=== PATIENT | female | born 1930 | race Caucasian/White ===

== ENCOUNTER → 2016-04-12 | Outpatient (CLI) | payer MEDICARE, OTHER ==
[2016-04-12 12:27] LABS: HEMATOCRIT 42.6 % (36.0-47.0); HEMOGLOBIN 14.2 g/dL (12.0-15.5); MEAN CORPUSCULAR HEMOGLOBIN 32.2 pg (27.0-33.4); MEAN CORPUSCULAR HGB CONC 33.2 g/dL (32.0-36.0); MEAN CORPUSCULAR VOLUME 97 fl (80-97); RED BLOOD COUNT 4.39 10^6/uL (3.72-5.28); RED CELL DISTRIBUTION WIDTH 13.8 % (11.5-14.0); WHITE BLOOD COUNT 8.5 10^3/uL (4.0-10.5)
[2016-04-12 12:52] LABS: ANION GAP 9 (5-19); BLOOD UREA NITROGEN 11 mg/dL (7-20); CALCIUM 9.5 mg/dL (8.4-10.2); CARBON DIOXIDE 32 mmol/L (22-30); CHLORIDE 103 mmol/L (98-107); CREATININE RESULT 1.09 mg/dL (0.52-1.25); GLUCOSE 82 mg/dL (75-110); POTASSIUM 4.1 mmol/L (3.6-5.0)
[2016-04-12 13:45] LABS: APPEARANCE,URINE SLIGHTLY-CLOUDY; BILIRUBIN,URINE NEGATIVE (NEGATIVE); GLUCOSE, URINE NEGATIVE (NEGATIVE); KETONES,URINE NEGATIVE (NEGATIVE); LEUKOCYTE ESTERASE,URINE SMALL (NEGATIVE); NITRITE,URINE NEGATIVE (NEGATIVE); PROTEIN,URINE NEGATIVE (NEGATIVE); URINE SPECIFIC GRAVITY 1.008; UROBILINOGEN,URINE NEGATIVE mg/dL (<2.0)
== END ==
LOC: OD 11:04
PROVIDERS: ATTEND Internal Medicine Nephrology
DX: I12.9 Hypertensive chronic kidney disease with stage 1 through stage 4 chronic kidney disease, or unspecified chronic kidney disease (principal); N18.3 Chronic kidney disease, stage 3 (moderate); E87.1 Hypo-osmolality and hyponatremia
CPT/HCPCS: 36415; 80048; 81001; 85027

== ENCOUNTER → 2016-10-22 | Outpatient (CLI) | payer MEDICARE, OTHER ==
[2016-10-22 12:02] LABS: HEMATOCRIT 43.2 % (36.0-47.0); HEMOGLOBIN 14.4 g/dL (12.0-15.5); MEAN CORPUSCULAR HEMOGLOBIN 32.7 pg (27.0-33.4); MEAN CORPUSCULAR HGB CONC 33.4 g/dL (32.0-36.0); MEAN CORPUSCULAR VOLUME 98 fl (80-97); RED BLOOD COUNT 4.42 10^6/uL (3.72-5.28); RED CELL DISTRIBUTION WIDTH 13.9 % (11.5-14.0); WHITE BLOOD COUNT 8.2 10^3/uL (4.0-10.5)
[2016-10-22 12:12] LABS: APPEARANCE,URINE CLEAR; BILIRUBIN,URINE NEGATIVE (NEGATIVE); GLUCOSE, URINE NEGATIVE (NEGATIVE); KETONES,URINE NEGATIVE (NEGATIVE); LEUKOCYTE ESTERASE,URINE TRACE (NEGATIVE); NITRITE,URINE NEGATIVE (NEGATIVE); PROTEIN,URINE NEGATIVE (NEGATIVE); URINE SPECIFIC GRAVITY 1.005; UROBILINOGEN,URINE NEGATIVE mg/dL (<2.0)
[2016-10-22 12:24] LABS: ANION GAP 10 (5-19); BLOOD UREA NITROGEN 9 mg/dL (7-20); CALCIUM 9.4 mg/dL (8.4-10.2); CARBON DIOXIDE 31 mmol/L (22-30); CHLORIDE 104 mmol/L (98-107); CREATININE RESULT 1.14 mg/dL (0.52-1.25); GLUCOSE 80 mg/dL (75-110); POTASSIUM 4.2 mmol/L (3.6-5.0)
== END ==
LOC: OD 10:34
PROVIDERS: ATTEND Internal Medicine Nephrology
DX: I12.9 Hypertensive chronic kidney disease with stage 1 through stage 4 chronic kidney disease, or unspecified chronic kidney disease (principal); N18.3 Chronic kidney disease, stage 3 (moderate)
CPT/HCPCS: 36415; 80048; 81001; 85027

== ENCOUNTER 2016-11-12 11:08 | Emergency (ER) | payer MEDICARE, OTHER ==
--- NOTE | 2016-11-12 11:29 | ER Document Report ---
ED Medical Screen (RME) - General Chief Complaint: Rib Pain Stated Complaint: SIDE PAIN Time Seen by Provider: 11/12/16 11:23 Notes: 86-year-old female patient complains of left-sided pain since Tuesday of this week. She also reports having an injection in a bursa on her right hip on Tuesday. She has noticed the tenderness in the left side just under the rib cage is now spread into the left lower quadrant of the abdomen. She has had her gallbladder removed and a total abdominal hysterectomy. She does not have a history of diverticulitis or kidney stones. I have greeted and performed a rapid initial assessment of this patient. A comprehensive ED assessment and evaluation of the patient, analysis of test results and completion of the medical decision making process will be conducted by additional ED providers. TRAVEL OUTSIDE OF THE [place] IN LAST 30 DAYS: No - Related Data Allergies/Adverse Reactions: Sulfa (Sulfonamide Antibiotics) Allergy (Mild, Verified 11/12/16 11:12) Nausea amlodipine [Amlodipine] Adverse Reaction (Mild, Verified 11/12/16 11:12) sick to stomach amoxicillin Adverse Reaction (Verified 11/12/16 11:12) Past Medical History - Social History Chew tobacco use (# tins/day): No Frequency of alcohol use: None Drug Abuse: None - Past Medical History Cardiac Medical History: Reports: Hx Heart Attack, Hx Hypercholesterolemia, Hx Hypertension Pulmonary Medical History: Reports: Hx Asthma, Hx COPD Endocrine Medical History: Reports: Hx Diabetes Mellitus Type 2 Renal/ Medical History: Denies: Hx Peritoneal Dialysis Past Surgical History: Reports: Hx Appendectomy, Hx Cholecystectomy, Hx Hysterectomy, Hx Tonsillectomy - Immunizations Hx Diphtheria, Pertussis, Tetanus Vaccination: - Unsure Physical Exam - Vital signs Vitals: Temp Pulse Resp BP Pulse Ox 98.5 F 58 L 14 190/81 H 98 11/12/16 11:10 11/12/16 11:10 11/12/16 11:10 11/12/16 11:10 11/12/16 11:10 Course - Vital Signs Vital signs: Temp Pulse Resp BP Pulse Ox 98.5 F 58 L 14 190/81 H 98 11/12/16 11:10 11/12/16 11:10 11/12/16 11:10 11/12/16 11:10 11/12/16 11:10
[2016-11-12 11:58] LABS: ABSOLUTE BASOPHILS # (AUTO) 0.1 10^3/uL (0.0-0.2); ABSOLUTE LYMPHOCYTES (AUTO) 2.8 10^3/uL (0.5-4.7); ABSOLUTE MONOCYTES (AUTO) 1.1 10^3/uL (0.1-1.4); ABSOLUTE NEUT (AUTO) 8.4 10^3/uL (1.7-8.2); EOSINOPHILS % (AUTO) 0.3 % (0-6); HEMATOCRIT 49.2 % (36.0-47.0); HEMOGLOBIN 16.6 g/dL (12.0-15.5); HGB HCT DIFFERENCE 0.6; LYMPHOCYTES % (AUTO) 22.4 % (13-45); MEAN CORPUSCULAR HEMOGLOBIN 32.7 pg (27.0-33.4); MEAN CORPUSCULAR HGB CONC 33.7 g/dL (32.0-36.0); MEAN CORPUSCULAR VOLUME 97 fl (80-97); MONOCYTES % (AUTO) 8.5 % (3-13); RED BLOOD COUNT 5.08 10^6/uL (3.72-5.28); RED CELL DISTRIBUTION WIDTH 13.7 % (11.5-14.0); SEGMENTED NEUTROPHILS % (AUTO) 67.8 % (42-78); WHITE BLOOD COUNT 12.4 10^3/uL (4.0-10.5)
[2016-11-12 12:00] LABS: APPEARANCE,URINE CLEAR; BILIRUBIN,URINE NEGATIVE (NEGATIVE); GLUCOSE, URINE NEGATIVE (NEGATIVE); KETONES,URINE NEGATIVE (NEGATIVE); LEUKOCYTE ESTERASE,URINE SMALL (NEGATIVE); NITRITE,URINE NEGATIVE (NEGATIVE); PROTEIN,URINE NEGATIVE (NEGATIVE); URINE SPECIFIC GRAVITY 1.004; UROBILINOGEN,URINE NEGATIVE mg/dL (<2.0)
[2016-11-12] MEDS ORDERED: LIDOCAINE 5% (700 MG) TRANSDERMAL ADH..PATCH TP ONE (12:01)
[2016-11-12] MEDS ORDERED: NORMAL SALINE 500 ML IV ONE (12:02)
[2016-11-12 12:30] LABS: ALANINE AMINOTRANSFERASE 72 U/L (9-52); ALBUMIN 4.7 g/dL (3.5-5.0); ALKALINE PHOSPHATASE 69 U/L (38-126); ANION GAP 14 (5-19); ASPARTATE AMINO TRANSFERASE 51 U/L (14-36); BILIRUBIN,DIRECT 0.4 mg/dL (0.0-0.4); BILIRUBIN,TOTAL 0.8 mg/dL (0.2-1.3); BLOOD UREA NITROGEN 12 mg/dL (7-20); CALCIUM 9.7 mg/dL (8.4-10.2); CARBON DIOXIDE 29 mmol/L (22-30); CHLORIDE 103 mmol/L (98-107); CREATININE RESULT 0.94 mg/dL (0.52-1.25); GLUCOSE 94 mg/dL (75-110); POTASSIUM 4.2 mmol/L (3.6-5.0); SODIUM 145.7 mmol/L (137-145); TOTAL PROTEIN 7.8 g/dL (6.3-8.2)
--- NOTE | 2016-11-12 13:36 | RADIOLOGY REPORT (SQ) ---
EXAM DESCRIPTION: CT ABD/PELVIS WITH IV ONLY COMPLETED DATE/TIME: 11/12/2016 12:53 pm REASON FOR STUDY: LUQ LLQ pain COMPARISON: CT abdomen pelvis 05/15/2012, 09/10/2015, 09/30/2015 TECHNIQUE: CT scan of the abdomen and pelvis performed using helical scanning technique with dynamic intravenous contrast injection. No oral contrast. Images reviewed with lung, soft tissue, and bone windows. Reconstructed coronal and sagittal MPR images reviewed. Delayed images for evaluation of the urinary system also acquired. All images stored on PACS. All CT scanners at this facility use dose modulation, iterative reconstruction, and/or weight based d osing when appropriate to reduce radiation dose to as low as reasonably achievable (ALARA). [facility]: Dose Right [facility]: CareDose [facility]: Dose Right [facility]: Teradose 4D [facility]: Sensitive Object CONTRAST TYPE AND DOSE: contrast/concentration: Isovue 370.00 mg/ml; Total Contrast Delivered: 54.0 ml; Total Saline Delivered: 65.1 ml RENAL FUNCTION: Creatinine 0.94 RADIATION DOSE: Up-to-date CT equipment and radiation dose reduction techniques were employed. CTDIv ol: 2.7 - 3.1 mGy. DLP: 268 mGy-cm.. LIMITATIONS: No oral contrast FINDINGS: LOWER CHEST: No significant findings. No nodules or infiltrates. LIVER: Normal size. No masses. No dilated ducts. Multiple benign hepatic cysts, unchanged compared to 2012, the largest is 2.5 cm in the left lobe liver near the falciform ligament. SPLEEN: Normal size. No focal lesions. PANCREAS: No masses. No significant calcifications. No adjacent inflammation or peripancreatic fluid collections. Pancreatic duct not dilated. GALLBLADDER: Surgically absent ADRENAL GLANDS: No significant masses or asymmetry. RIGHT KIDNEY AND URETER: No solid masses. No significant calcifications. No hydronephrosis or hyd roureter. LEFT KIDNEY AND URETER: No solid masses. No significant calcifications. No hydronephrosis or hydr oureter. AORTA AND VESSELS: No aneurysm. No dissection. Renal arteries, SMA, celiac without stenosis. RETROPERITONEUM: No retroperitoneal adenopathy, hemorrhage or masses. BOWEL AND PERITONEAL CAVITY: No masses or inflammatory changes. No free fluid or peritoneal masses. No gross bowel obstruction. No CT evidence of left colon diverticulitis. APPENDIX: Normal. PELVIS: No mass. No free fluid. Normal bladder. ABDOMINAL WALL: No masses. No hernias. BONES: No significant or acute findings. OTHER: No other significant finding. IMPRESSION: NO SIGNIFICANT OR ACUTE FINDING IN THE ABDOMEN OR PELVIS ON CT SCAN WITH IV CONTRAST. TECHNICAL DOCUMENTATION: JOB ID: [id number] Quality ID # [id number]: Final reports with documentation of one or more dose reduction techniques (e.g., Au tomated exposure control, adjustment of the mA and/or kV according to patient size, use of iterative reconstruction technique) 2010 [employer]- All Rights Reserved
--- NOTE | 2016-11-12 14:08 | ER Document Report ---
ED General - General Chief Complaint: Rib Pain Stated Complaint: SIDE PAIN Time Seen by Provider: 11/12/16 11:23 TRAVEL OUTSIDE OF THE [place] IN LAST 30 DAYS: No - HPI Patient complains to provider of: Left flank pain left rib pain Notes: Patient coming in for evaluation left flank pain left rib pain ongoing since Tuesday. Patient denies any trauma or new physical activity. Patient denies any fevers chills nausea vomiting diarrhea. Patient states chronic GI upset in the evenings with no change patient states she is tried Tylenol with no relief of her pain. Patient otherwise is resting comfortably upon my evaluation patient states able tolerate breakfast this morning. - Related Data Allergies/Adverse Reactions: Sulfa (Sulfonamide Antibiotics) Allergy (Mild, Verified 11/12/16 11:12) Nausea amlodipine [Amlodipine] Adverse Reaction (Mild, Verified 11/12/16 11:12) sick to stomach amoxicillin Adverse Reaction (Verified 11/12/16 11:12) Past Medical History - Social History Smoking Status: Never Smoker Chew tobacco use (# tins/day): No Frequency of alcohol use: None Drug Abuse: None Family History: Reviewed & Not Pertinent - Past Medical History Cardiac Medical History: Reports: Hx Heart Attack, Hx Hypercholesterolemia, Hx Hypertension Pulmonary Medical History: Reports: Hx Asthma, Hx COPD Endocrine Medical History: Reports: Hx Diabetes Mellitus Type 2 Renal/ Medical History: Denies: Hx Peritoneal Dialysis Past Surgical History: Reports: Hx Appendectomy, Hx Cholecystectomy, Hx Hysterectomy, Hx Tonsillectomy - Immunizations Hx Diphtheria, Pertussis, Tetanus Vaccination: - Unsure Hx Pneumococcal Vaccination: 02/21/14 Review of Systems - Review of Systems Constitutional: No symptoms reported EENT: No symptoms reported Cardiovascular: No symptoms reported Respiratory: No symptoms reported Gastrointestinal: No symptoms reported Genitourinary: Flank pain Female Genitourinary: No symptoms reported Musculoskeletal: No symptoms reported Skin: No symptoms reported Hematologic/Lymphatic: No symptoms reported Neurological/Psychological: No symptoms reported Physical Exam - Vital signs Vitals: Temp Pulse Resp BP Pulse Ox 98.5 F 58 L 14 190/81 H 98 11/12/16 11:10 11/12/16 11:10 11/12/16 11:10 11/12/16 11:10 11/12/16 11:10 Interpretation: Normal - General General appearance: Appears well, Alert - HEENT Head: Normocephalic, Atraumatic Eyes: Normal Pupils: PERRL - Respiratory Respiratory status: No respiratory distress Chest status: Tender - Tenderness to palpation to the lower ribs and the left flank area. Breath sounds: Normal Chest palpation: Normal - Cardiovascular Rhythm: Regular Heart sounds: Normal auscultation Murmur: No - Abdominal Inspection: Normal Distension: No distension Bowel sounds: Normal Tenderness: Nontender Organomegaly: No organomegaly - Back Back: Normal, Nontender - Extremities General upper extremity: Normal inspection, Nontender, Normal color, Normal ROM , Normal temperature General lower extremity: Normal inspection, Nontender, Normal color, Normal ROM , Normal temperature, Normal weight bearing. No: Ryan's sign - Neurological Neuro grossly intact: Yes Cognition: Normal Orientation: AAOx4 [place] Coma Scale Eye Opening: Spontaneous [place] Coma Scale Verbal: Oriented [place] Coma Scale Motor: Obeys Commands [place] Coma Scale Total: 15 Speech: Normal Motor strength normal: LUE, RUE, LLE, RLE Sensory: Normal - Psychological Associated symptoms: Normal affect, Normal mood - Skin Skin Temperature: Warm Skin Moisture: Dry Skin Color: Normal Course - Re-evaluation Re-evalutation: 11/12/16 14:57 Slight dehydration as patient is hemoconcentrated. Slight elevation in white count urinalysis was indeterminate for any signs of infection therefore did's CAT scan the patient looking for other pathology causing the patient's pain this is also negative. More likely muscle skeletal etiology. Patient was encouraged to use Tylenol and intermittent Motrin for pain patient was warned that anti-inflammatory medication can increase her risk of upset stomach GI bleed and also affect her blood pressure. Highly encouraged patient follow-up with her primary care physician in 3-5 days if pain continues. Otherwise at this time the critical etiology patient will be discharged home. The patient presents with abdominal pain without signs of peritonitis or other life- threatening or serious etiology. The patient appears stable for discharge and has been instructed to return immediately if the symptoms worsen in any way, or in 8-12hr if not improved for re-evaluation. The patient has been instructed to return if the symptoms worsen or change in any way. - Vital Signs Vital signs: Temp Pulse Resp BP Pulse Ox 97.9 F 52 L 16 194/85 H 98 11/12/16 14:25 11/12/16 14:25 11/12/16 14:25 11/12/16 14:25 11/12/16 14:25 - Laboratory Result Diagrams: 11/12/16 11:41 11/12/16 11:41 Laboratory results interpreted by me: 11/12/16 11/12/16 11/12/16 11:41 11:41 11:41 WBC 12.4 H Hgb 16.6 H Hct 49.2 H Absolute Neutrophils 8.4 H Sodium 145.7 H Est GFR (Non-Af Amer) 57 L AST 51 H ALT 72 H Ur Leukocyte Esterase SMALL H Discharge - Discharge Clinical Impression: Left flank pain Condition: Good Disposition: HOME, SELF-CARE Instructions: Anti-Inflammatory Medication ([facility]), Flank Pain ([facility]), Ice Packs ( [facility]), Warm Packs ([facility]) Additional Instructions: At this time do not see any critical pathology on her CAT scan or any lab work that was causing her pain this could be a muscle skeletal calls placing a muscle strain or a pulled muscle causing her pain. May take Tylenol for pain control also he can take anti-inflammatory medication such as Motrin however I would only take 1 dose a day at the most she may also use ice packs and warm packs to help out with the pain. Referrals: DIANNE PAEZ MD [Primary Care Provider] - Follow up in 1 week
[2016-11-12 14:34] VITALS: BP 194/85
== END 2016-11-12 14:25 | disposition home or self-care (01) ==
LOC: ER 11:08
DX: R10.9 Unspecified abdominal pain (principal); E86.0 Dehydration; R07.81 Pleurodynia; D72.829 Elevated white blood cell count, unspecified; I25.2 Old myocardial infarction; I10 Essential (primary) hypertension; J44.9 Chronic obstructive pulmonary disease, unspecified; E11.9 Type 2 diabetes mellitus without complications; Z90.49 Acquired absence of other specified parts of digestive tract; Z90.710 Acquired absence of both cervix and uterus; Z88.2 Allergy status to sulfonamides
CPT/HCPCS: 99284; 96360; 36415; 83690; 85025; 80053; 81001; 74177; J7040

== ENCOUNTER 2016-11-18 12:34 | Emergency (ER) | payer MEDICARE, OTHER ==
--- NOTE | 2016-11-18 12:57 | ER Document Report ---
ED General - General Chief Complaint: Flank Pain Stated Complaint: LEFT FLANK PAIN Time Seen by Provider: 11/18/16 12:57 Mode of Arrival: Ambulatory Information source: Patient Notes: 86 yo thin female c/o left flank pain for 2 weeks, now has painful rash this morning that her son noticed. Hx shingles as a child once. No fever. No urinary symptoms. No chest pain, sob, headache. No n/v/d. TRAVEL OUTSIDE OF THE [place] IN LAST 30 DAYS: No - Related Data Allergies/Adverse Reactions: Sulfa (Sulfonamide Antibiotics) Allergy (Mild, Verified 11/18/16 12:38) Nausea amlodipine [Amlodipine] Adverse Reaction (Mild, Verified 11/18/16 12:38) sick to stomach amoxicillin Adverse Reaction (Verified 11/18/16 12:38) Past Medical History - General Information source: Patient, Relative - son - Social History Smoking Status: Never Smoker Frequency of alcohol use: None Drug Abuse: None Lives with: Alone Family History: Reviewed & Not Pertinent - Past Medical History Cardiac Medical History: Reports: Hx Heart Attack, Hx Hypercholesterolemia, Hx Hypertension Pulmonary Medical History: Reports: Hx Asthma, Hx COPD Endocrine Medical History: Reports: Hx Diabetes Mellitus Type 2 Renal/ Medical History: Denies: Hx Peritoneal Dialysis Past Surgical History: Reports: Hx Appendectomy, Hx Cholecystectomy, Hx Hysterectomy, Hx Tonsillectomy - Immunizations Hx Diphtheria, Pertussis, Tetanus Vaccination: - Unsure Hx Pneumococcal Vaccination: 02/21/14 Review of Systems - Review of Systems Constitutional: No symptoms reported EENT: No symptoms reported Cardiovascular: No symptoms reported Respiratory: No symptoms reported Gastrointestinal: No symptoms reported Genitourinary: No symptoms reported Female Genitourinary: No symptoms reported Musculoskeletal: No symptoms reported Skin: See HPI Hematologic/Lymphatic: No symptoms reported Neurological/Psychological: No symptoms reported Physical Exam - Vital signs Vitals: Temp Pulse Resp BP Pulse Ox 98.5 F 64 16 200/94 H 97 11/18/16 12:39 11/18/16 12:39 11/18/16 12:39 11/18/16 12:39 11/18/16 12:39 Interpretation: Normal - General General appearance: Appears well, Alert - HEENT Head: Normocephalic, Atraumatic Eyes: Normal Pupils: PERRL - Respiratory Respiratory status: No respiratory distress Chest status: Nontender Breath sounds: Normal Chest palpation: Normal - Cardiovascular Rhythm: Regular Heart sounds: Normal auscultation Murmur: No - Abdominal Inspection: Normal Distension: No distension Bowel sounds: Normal Tenderness: Tender - vesicles on erythmatous bas left lower thoracic dermatone Organomegaly: No organomegaly - Back Back: Normal, Tender - similar vesicular grouped lesions same lower thoracic dermatone - Extremities General upper extremity: Normal inspection, Nontender, Normal color, Normal ROM , Normal temperature General lower extremity: Normal inspection, Nontender, Normal color, Normal ROM , Normal temperature, Normal weight bearing. No: Ryan's sign - Neurological Neuro grossly intact: Yes Cognition: Normal Orientation: AAOx4 [place] Coma Scale Eye Opening: Spontaneous [place] Coma Scale Verbal: Oriented [place] Coma Scale Motor: Obeys Commands [place] Coma Scale Total: 15 Speech: Normal Motor strength normal: LUE, RUE, LLE, RLE Sensory: Normal - Psychological Associated symptoms: Normal affect, Normal mood - Skin Skin Temperature: Warm Skin Moisture: Dry Skin Color: Normal Skin irregularity: Rash - see above Course - Re-evaluation Re-evalutation: 11/19/16 05:57 late entry: nurse was concerned about the systolic blood pressure over 200. the left was 230, right was 220 that I did. Clonidine given and the systolic went to 198. Pt had no symptoms from the BP and takes her medication regularly. - Vital Signs Vital signs: Temp Pulse Resp BP Pulse Ox 98.5 F 66 18 230/102 H 97 11/18/16 12:39 11/18/16 13:05 11/18/16 13:05 11/18/16 15:52 11/18/16 13:05 - Laboratory Result Diagrams: 11/18/16 13:35 11/18/16 13:35 Laboratory results interpreted by me: 11/18/16 11/18/16 13:35 13:35 Hgb 16.1 H Hct 47.5 H Carbon Dioxide 31 H Est GFR (Non-Af Amer) 49 L Discharge - Discharge Clinical Impression: Shingles Qualifiers: Herpes zoster complications: without complications Qualified Code(s): B02.9 - Zoster without complications Condition: Good Disposition: HOME, SELF-CARE Instructions: Oral Narcotic Medication ([facility]), Shingles ([facility]), Steroid Medication Additional Instructions: Take stool softeners so that she will not get constipated with the pain pills Lt Dianne Paez MD know that you have shingles To the emergency room any concerns Please complete the patient satisfaction survey if you get one, and return it.. If you do not receive a survey, then you can go to the [facility] website, [email or web address] and place your comments about your very good care. Thank you very much. It was a pleasure being your medical provider today. Prescriptions: Oxycodone HCl/Acetaminophen [Percocet 5-325 mg Tablet] 1 tab PO ASDIR PRN #15 tablet PRN Reason: Prednisone [Deltasone 10 mg Tablet] 10 mg PO ASDIR PRN #21 tablet PRN Reason: Valacyclovir HCl [Valtrex] 1,000 mg PO TID #21 tablet Referrals: DIANNE PAEZ MD [Primary Care Provider] - Follow up as needed
[2016-11-18 13:55] LABS: ABSOLUTE BASOPHILS # (AUTO) 0.1 10^3/uL (0.0-0.2); ABSOLUTE EOSINOPHILS # (AUTO) 0.1 10^3/uL (0.0-0.6); ABSOLUTE LYMPHOCYTES (AUTO) 2.7 10^3/uL (0.5-4.7); ABSOLUTE MONOCYTES (AUTO) 0.9 10^3/uL (0.1-1.4); ABSOLUTE NEUT (AUTO) 6.5 10^3/uL (1.7-8.2); BASOPHILS % (AUTO) 1.1 % (0-2); HEMATOCRIT 47.5 % (36.0-47.0); HEMOGLOBIN 16.1 g/dL (12.0-15.5); HGB HCT DIFFERENCE 0.8; LYMPHOCYTES % (AUTO) 26.5 % (13-45); MEAN CORPUSCULAR HEMOGLOBIN 32.8 pg (27.0-33.4); MEAN CORPUSCULAR HGB CONC 33.9 g/dL (32.0-36.0); MEAN CORPUSCULAR VOLUME 97 fl (80-97); MONOCYTES % (AUTO) 8.5 % (3-13); RED BLOOD COUNT 4.91 10^6/uL (3.72-5.28); RED CELL DISTRIBUTION WIDTH 13.7 % (11.5-14.0); SEGMENTED NEUTROPHILS % (AUTO) 62.9 % (42-78); WHITE BLOOD COUNT 10.3 10^3/uL (4.0-10.5)
[2016-11-18 13:56] LABS: APPEARANCE,URINE CLEAR; BILIRUBIN,URINE NEGATIVE (NEGATIVE); GLUCOSE, URINE NEGATIVE (NEGATIVE); KETONES,URINE NEGATIVE (NEGATIVE); LEUKOCYTE ESTERASE,URINE NEGATIVE (NEGATIVE); NITRITE,URINE NEGATIVE (NEGATIVE); PROTEIN,URINE NEGATIVE (NEGATIVE); URINE SPECIFIC GRAVITY 1.006; UROBILINOGEN,URINE NEGATIVE mg/dL (<2.0)
[2016-11-18] MEDS ORDERED: OXYCODONE-ACETAMINOPHEN 5-325 MG TABLET PO ONE ×3 (13:56→15:52)
[2016-11-18] MEDS ORDERED: DOCUSATE SODIUM 100 MG/10 ML UDC PO ONE (13:58)
[2016-11-18] MEDS ORDERED: ONDANSETRON 4 MG TAB.RAPDIS PO ONE (13:59)
[2016-11-18 14:13] LABS: ALANINE AMINOTRANSFERASE 40 U/L (9-52); ALBUMIN 4.2 g/dL (3.5-5.0); ALKALINE PHOSPHATASE 82 U/L (38-126); ANION GAP 9 (5-19); ASPARTATE AMINO TRANSFERASE 29 U/L (14-36); BILIRUBIN,DIRECT 0.4 mg/dL (0.0-0.4); BILIRUBIN,TOTAL 0.9 mg/dL (0.2-1.3); BLOOD UREA NITROGEN 14 mg/dL (7-20); CALCIUM 9.6 mg/dL (8.4-10.2); CARBON DIOXIDE 31 mmol/L (22-30); CHLORIDE 104 mmol/L (98-107); CREATININE RESULT 1.06 mg/dL (0.52-1.25); GLUCOSE 96 mg/dL (75-110); POTASSIUM 4.2 mmol/L (3.6-5.0); SODIUM 144.4 mmol/L (137-145); TOTAL PROTEIN 7.1 g/dL (6.3-8.2)
[2016-11-18] MEDS ORDERED: PREDNISONE 20 MG TABLET PO ONE (14:20)
[2016-11-18] MEDS ORDERED: DOCUSATE SODIUM 100 MG CAPSULE PO ONE (15:00)
[2016-11-18] MEDS ORDERED: CLONIDINE HCL 0.1 MG TABLET PO ONE (15:52)
[2016-11-18 15:53] VITALS: BP 230/102
== END 2016-11-18 16:48 | disposition home or self-care (01) ==
LOC: ER 12:34
DX: B02.9 Zoster without complications (principal); R10.9 Unspecified abdominal pain; E11.9 Type 2 diabetes mellitus without complications; E78.00 Pure hypercholesterolemia, unspecified; Z88.2 Allergy status to sulfonamides; Z88.0 Allergy status to penicillin; Z90.49 Acquired absence of other specified parts of digestive tract; I25.2 Old myocardial infarction; Z90.710 Acquired absence of both cervix and uterus
CPT/HCPCS: 99284; 36415; 87086; 85025; 87088; 80053; 81001; 87186; A9270 ×5; J7512; S0119

== ENCOUNTER → 2017-05-09 | Outpatient (CLI) | payer MEDICARE, OTHER ==
[2017-05-09 12:04] LABS: HEMATOCRIT 45.4 % (36.0-47.0); HEMOGLOBIN 15.3 g/dL (12.0-15.5); MEAN CORPUSCULAR HGB CONC 33.6 g/dL (32.0-36.0); MEAN CORPUSCULAR VOLUME 95 fl (80-97); PLATELET COUNT 189 10^3/uL (150-450); RED BLOOD COUNT 4.76 10^6/uL (3.72-5.28); RED CELL DISTRIBUTION WIDTH 13.9 % (11.5-14.0); WHITE BLOOD COUNT 9.9 10^3/uL (4.0-10.5)
[2017-05-09 12:35] LABS: ANION GAP 9 (5-19); BLOOD UREA NITROGEN 13 mg/dL (7-20); CALCIUM 9.7 mg/dL (8.4-10.2); CARBON DIOXIDE 30 mmol/L (22-30); CHLORIDE 106 mmol/L (98-107); GLUCOSE 86 mg/dL (75-110); POTASSIUM 4.4 mmol/L (3.6-5.0); SODIUM 144.8 mmol/L (137-145)
== END ==
LOC: OD 11:11
PROVIDERS: ATTEND Internal Medicine Nephrology
DX: I12.9 Hypertensive chronic kidney disease with stage 1 through stage 4 chronic kidney disease, or unspecified chronic kidney disease (principal); N18.3 Chronic kidney disease, stage 3 (moderate)
CPT/HCPCS: 36415; 80048; 85027

== ENCOUNTER → 2017-09-27 | Outpatient (CLI) | payer MEDICARE, OTHER ==
[2017-09-27 11:29] LABS: ABSOLUTE BASOPHILS # (AUTO) 0.1 10^3/uL (0.0-0.2); ABSOLUTE EOSINOPHILS # (AUTO) 0.1 10^3/uL (0.0-0.6); ABSOLUTE LYMPHOCYTES (AUTO) 2.6 10^3/uL (0.5-4.7); ABSOLUTE MONOCYTES (AUTO) 0.8 10^3/uL (0.1-1.4); ABSOLUTE NEUT (AUTO) 5.4 10^3/uL (1.7-8.2); BASOPHILS % (AUTO) 1.1 % (0-2); EOSINOPHILS % (AUTO) 1.6 % (0-6); HEMATOCRIT 45.2 % (36.0-47.0); HEMOGLOBIN 15.1 g/dL (12.0-15.5); LYMPHOCYTES % (AUTO) 28.8 % (13-45); MEAN CORPUSCULAR HEMOGLOBIN 32.2 pg (27.0-33.4); MEAN CORPUSCULAR HGB CONC 33.3 g/dL (32.0-36.0); MEAN CORPUSCULAR VOLUME 97 fl (80-97); MONOCYTES % (AUTO) 8.9 % (3-13); PLATELET COUNT 186 10^3/uL (150-450); RED BLOOD COUNT 4.68 10^6/uL (3.72-5.28); RED CELL DISTRIBUTION WIDTH 13.9 % (11.5-14.0); SEGMENTED NEUTROPHILS % (AUTO) 59.6 % (42-78); TOTAL CELLS COUNTED % (AUTO) 100 %; WHITE BLOOD COUNT 9.1 10^3/uL (4.0-10.5)
[2017-09-27 11:45] LABS: ALANINE AMINOTRANSFERASE 33 U/L (9-52); ALBUMIN 4.2 g/dL (3.5-5.0); ALKALINE PHOSPHATASE 57 U/L (38-126); ANION GAP 11 (5-19); ASPARTATE AMINO TRANSFERASE 34 U/L (14-36); BILIRUBIN,DIRECT 0.3 mg/dL (0.0-0.4); BLOOD UREA NITROGEN 14 mg/dL (7-20); CALCIUM 9.5 mg/dL (8.4-10.2); CARBON DIOXIDE 29 mmol/L (22-30); CHLORIDE 106 mmol/L (98-107); GLUCOSE 87 mg/dL (75-110); SODIUM 146.3 mmol/L (137-145); TRIGLYCERIDES 159 mg/dL (<150)
[2017-09-27 11:55] LABS: DIRECT LDL 72 mg/dL (<100)
[2017-09-27 11:57] LABS: VLDL CHOLESTEROL 31.8 mg/dL (10-31)
== END ==
LOC: OD 10:40
PROVIDERS: ATTEND Internal Medicine
DX: I10 Essential (primary) hypertension (principal); E78.5 Hyperlipidemia, unspecified; R53.83 Other fatigue; I47.1 Supraventricular tachycardia
CPT/HCPCS: 36415; 80053; 80061; 83735; 84443; 85025

== ENCOUNTER → 2017-10-21 | Outpatient (CLI) | payer MEDICARE, OTHER ==
[2017-10-21 11:33] LABS: HEMATOCRIT 44.8 % (36.0-47.0); MEAN CORPUSCULAR HEMOGLOBIN 32.3 pg (27.0-33.4); MEAN CORPUSCULAR HGB CONC 33.4 g/dL (32.0-36.0); MEAN CORPUSCULAR VOLUME 97 fl (80-97); PLATELET COUNT 188 10^3/uL (150-450); RED BLOOD COUNT 4.64 10^6/uL (3.72-5.28); RED CELL DISTRIBUTION WIDTH 13.9 % (11.5-14.0); WHITE BLOOD COUNT 9.5 10^3/uL (4.0-10.5)
[2017-10-21 11:55] LABS: ANION GAP 10 (5-19); BLOOD UREA NITROGEN 13 mg/dL (7-20); CALCIUM 9.2 mg/dL (8.4-10.2); CARBON DIOXIDE 31 mmol/L (22-30); CHLORIDE 104 mmol/L (98-107); GLUCOSE 82 mg/dL (75-110); POTASSIUM 4.6 mmol/L (3.6-5.0); SODIUM 145.2 mmol/L (137-145)
[2017-10-21 12:40] LABS: APPEARANCE,URINE SLIGHTLY-CLOUDY; BILIRUBIN,URINE NEGATIVE (NEGATIVE); COLOR,URINE YELLOW; GLUCOSE, URINE NEGATIVE (NEGATIVE); KETONES,URINE NEGATIVE (NEGATIVE); LEUKOCYTE ESTERASE,URINE MODERATE (NEGATIVE); NITRITE,URINE POSITIVE (NEGATIVE); PROTEIN,URINE NEGATIVE (NEGATIVE); URINE SPECIFIC GRAVITY 1.008; UROBILINOGEN,URINE NEGATIVE mg/dL (<2.0)
== END ==
LOC: OD 10:56
PROVIDERS: ATTEND Internal Medicine Nephrology
DX: N18.3 Chronic kidney disease, stage 3 (moderate) (principal); I12.9 Hypertensive chronic kidney disease with stage 1 through stage 4 chronic kidney disease, or unspecified chronic kidney disease
CPT/HCPCS: 36415; 80048; 81001; 85027

== ENCOUNTER 2018-03-18 11:00 | Inpatient (IN) | payer MEDICARE, OTHER ==
--- NOTE | 2018-03-18 11:12 | ER Document Report ---
ED Fall - General Stated Complaint: RIGHT HIP PAIN Time Seen by Provider: 03/18/18 11:08 Primary Care Provider: Viviane COATES MD [Primary Care Provider] - Follow up as needed Notes: 87-year-old female that presents today status post mechanical fall last evening. Patient states she landed on her head. No loss of consciousness or vomiting. Patient states she "crawled" to her bed to go to sleep. Patient states when she awoke she could not walk on her right leg. She states pain mostly to the right hip. EMS thought that her right leg was shortened and they put her into a pelvic binder. Patient denies any headache, neck pain, anterior posterior rib pain, chest pain, shortness of breath, abdominal pain, or pain to any other extremities. Patient denies any and all lightheadedness, chest pain, shortness of breath, weakness or numbness, causing the fall. She is not on blood thinning medications. She is followed by the primary care physician Dr. Braun. TRAVEL OUTSIDE OF THE [place] IN LAST 30 DAYS: No - HPI Occurred: Other - See above Where: Home Context: Fell from standing Associated symptoms: Other - See above Location of injury/pain: Other - See above Quality of pain: Achy Severity: Moderate Pain Level: 1 Prehospital interventions: Other - Related data Allergies/Adverse Reactions: Sulfa (Sulfonamide Antibiotics) Allergy (Mild, Verified 11/18/16 12:38) Nausea amlodipine [Amlodipine] Adverse Reaction (Mild, Verified 11/18/16 12:38) sick to stomach amoxicillin Adverse Reaction (Verified 11/18/16 12:38) Past Medical History - Social History Smoking Status: Unknown if Ever Smoked Family History: Reviewed & Not Pertinent - Past Medical History Cardiac Medical History: Reports: Hx Heart Attack, Hx Hypercholesterolemia, Hx Hypertension Pulmonary Medical History: Reports: Hx Asthma, Hx COPD Endocrine Medical History: Reports: Hx Diabetes Mellitus Type 2 Renal/ Medical History: Denies: Hx Peritoneal Dialysis Past Surgical History: Reports: Hx Appendectomy, Hx Cholecystectomy, Hx Hysterectomy, Hx Tonsillectomy - Immunizations Hx Diphtheria, Pertussis, Tetanus Vaccination: - Unsure Hx Pneumococcal Vaccination: 02/21/14 Review of Systems - Review of Systems Constitutional: denies: Fever EENT: denies: Eye discharge, Nose discharge Cardiovascular: denies: Chest pain Respiratory: denies: Short of breath Gastrointestinal: denies: Vomiting Genitourinary: denies: Dysuria Skin: Other - no hives. denies: Rash Neurological/Psychological: Other - no slurred speech -: Yes All other systems reviewed and negative Physical Exam - Vital signs Notes: Reviewed vital signs and nursing note as charted by RN. CONSTITUTIONAL: Alert and oriented and responds appropriately to questions. Well-appearing; well-nourished HEAD: Normocephalic; atraumatic EYES: PERRL; Conjunctivae clear, sclerae non-icteric ENT: Normal nose; no rhinorrhea; moist mucous membranes; pharynx without lesions noted NECK: Supple without meningismus; non-tender; no carotid bruit; no cervical lymphadenopathy, no masses CARD: Regular rate and rhythm; no murmurs; symmetric distal pulses RESP: Normal chest excursion without splinting or tachypnea; breath sounds clear and equal bilaterally; no wheezes, no rhonchi, no rales ABD/GI: Normal bowel sounds; non-distended; soft, non-tender; no palpable organo megaly or masses BACK: The back appears normal and is non-tender to palpation of the midline spine EXT: Patient has some tenderness to the right anterior hip without any obvious swelling or deformity. There is also some tenderness with a very small abrasion to the right knee. I do not detect any obvious leg shortening or rotation. Strong pulses distally with excellent plantar flexion strength SKIN: No acute lesions noted NEURO: CN 2-12 intact; 5/5 bilateral upper and lower extremity strength with sensation intact to light touch PSYCH: The patient's mood and manner are appropriate. Grooming and personal hygiene are appropriate. Course - Re-evaluation Re-evalutation: 03/18/18 11:11 Given the history and physical examination and the patient's age we will obtain basic labs, coagulation profile, CT scan of the head, and x-ray of the hip and knee. Concern about the possibility of a hip fracture. Given the head trauma with the patient's age I do believe CT scan of the head is appropriate. 03/18/18 12:07 Right hip shows a femoral neck fracture. Labs and other imaging are pending. Anticipate admission. 03/18/18 12:22 I called and spoke to the orthopedic surgeon rehab director occupational therapist Dr. Galan and have alerted him about the patient. He will consult and have the patient admitted to the hospitalist. Discharge - Discharge Clinical Impression: Accidental fall Qualifiers: Encounter type: initial encounter Qualified Code(s): W19.XXXA - Unspecified fall, initial encounter Closed right hip fracture Qualifiers: Encounter type: initial encounter Qualified Code(s): S72.001A - Fracture of unspecified part of neck of right femur, initial encounter for closed fracture Condition: Fair Disposition: ADMITTED INPATIENT Admitting Provider: Hospitalist Unit Admitted: Medical Floor Referrals: Viviane COATES MD [Primary Care Provider] - Follow up as needed
[2018-03-18 12:49] LABS: HEMATOCRIT 47.1 % (36.0-47.0); HEMOGLOBIN 15.9 g/dL (12.0-15.5); MEAN CORPUSCULAR HEMOGLOBIN 32.3 pg (27.0-33.4); MEAN CORPUSCULAR HGB CONC 33.7 g/dL (32.0-36.0); MEAN CORPUSCULAR VOLUME 96 fl (80-97); PLATELET COUNT 157 10^3/uL (150-450); RED BLOOD COUNT 4.91 10^6/uL (3.72-5.28); RED CELL DISTRIBUTION WIDTH 13.6 % (11.5-14.0)
[2018-03-18 12:50] LABS: INTERNATIONAL RATION (INR) 1.01; PROTHROMBIN TIME 13.9 SEC (11.4-15.4)
--- NOTE | 2018-03-18 12:51 | RADIOLOGY REPORT (SQ) ---
EXAM DESCRIPTION: FEMUR RIGHT COMPLETED DATE/TIME: 03/18/2018 11:40 am REASON FOR STUDY: 1, fall COMPARISON: None. NUMBER OF VIEWS: Two views. TECHNIQUE: Two radiographic images acquired of the right femur to include hip and knee in at least o ne projection. LIMITATIONS: None. FINDINGS: MINERALIZATION: Osteoporotic BONES: Acute right subcapital femoral neck fracture with varus angulation. SOFT TISSUES: No obvious swelling or foreign body. OTHER: No other significant finding. IMPRESSION: Acute right subcapital femoral neck fracture with varus angulation. Remainder the femur two views is otherwise unremarkable TECHNICAL DOCUMENTATION: JOB ID: [id number] [employer]- All Rights Reserved Reading location - IP/workstation name: [email or web address]
--- NOTE | 2018-03-18 12:52 | RADIOLOGY REPORT (SQ) ---
EXAM DESCRIPTION: HIP RIGHT AP/LATERAL COMPLETED DATE/TIME: 03/18/2018 11:40 am REASON FOR STUDY: bed 1 +deformity COMPARISON: Right hip films 02/02/2016 NUMBER OF VIEWS: Two views. TECHNIQUE: AP pelvis and additional frog-leg view of the right hip. LIMITATIONS: None. FINDINGS: MINERALIZATION: Osteoporotic RIGHT HIP: Acute right subcapital femoral neck fracture with varus angulation. LEFT HIP: No fracture or dislocation. No worrisome bone lesions. PUBIS AND ISCHIUM: No fracture. PELVIS: No fracture. SACRUM: No fracture or dislocation. No worrisome bone lesions. LOWER LUMBAR SPINE: Facet arthropathy right greater than left L4-5 and L5-S1 SOFT TISSUES: No findings. OTHER: No other significant finding. IMPRESSION: Acute right subcapital femoral neck fracture with varus angulation TECHNICAL DOCUMENTATION: JOB ID: [id number] [employer]- All Rights Reserved Reading location - IP/workstation name: [email or web address]
--- NOTE | 2018-03-18 12:54 | RADIOLOGY REPORT (SQ) ---
EXAM DESCRIPTION: CT HEAD WITHOUT COMPLETED DATE/TIME: 03/18/2018 11:40 am REASON FOR STUDY: 1, fall COMPARISON: CT brain 10/15/2015, 04/10/2011 TECHNIQUE: Axial images acquired through the brain without intravenous contrast. Images reviewed wi th bone, brain and subdural windows. Additional sagittal and coronal reconstructions were generated. Images stored on PACS. All CT scanners at this facility use dose modulation, iterative reconstruction, and/or weight based d osing when appropriate to reduce radiation dose to as low as reasonably achievable (ALARA). [facility]: Dose Right [facility]: CareDose [facility]: Dose Right [facility]: Teradose 4D [facility]: [employer] RADIATION DOSE: CT Rad equipment meets quality standard of care and radiation dose reduction techniq ues were employed. CTDIvol: 53.2 mGy. DLP: 937 mGy-cm. mGy. LIMITATIONS: None. FINDINGS: VENTRICLES: Normal size and contour. CEREBRUM: No masses. No hemorrhage. No midline shift. No evidence for acute infarction. Stable age -appropriate bifrontal and biparietal white matter low attenuation from chronic small vessel disease. CEREBELLUM: No masses. No hemorrhage. No alteration of density. No evidence for acute infarction. EXTRAAXIAL SPACES: No fluid collections. No masses. ORBITS AND GLOBE: No intra- or extraconal masses. Post bilateral cataract surgery CALVARIUM: No fracture. PARANASAL SINUSES: No fluid or mucosal thickening. SOFT TISSUES: No mass or hematoma. OTHER: No other significant finding. IMPRESSION: No acute findings EVIDENCE OF ACUTE STROKE: NO. COMMENT: Quality ID # [id number]: Final reports with documentation of one or more dose reduction techniques (e.g., Automated exposure control, adjustment of the mA and/or kV according to patient size, use of iterative reconstruction technique) TECHNICAL DOCUMENTATION: JOB ID: [id number] [employer]- All Rights Reserved Reading location - IP/workstation name: [email or web address]
--- NOTE | 2018-03-18 12:55 | RADIOLOGY REPORT (SQ) ---
EXAM DESCRIPTION: KNEE RIGHT 2 VIEWS COMPLETED DATE/TIME: 03/18/2018 11:41 am REASON FOR STUDY: 1, fall COMPARISON: None. NUMBER OF VIEWS: Two views. TECHNIQUE: AP and lateral radiographic images acquired of the right knee. LIMITATIONS: None. FINDINGS: MINERALIZATION: Osteopenic BONES: No acute fracture or dislocation. No worrisome bone lesions. JOINT: No effusion. SOFT TISSUES: No soft tissue swelling. No radio-opaque foreign body. OTHER: No other significant finding. IMPRESSION: NEGATIVE STUDY OF THE RIGHT KNEE. NO RADIOGRAPHIC EVIDENCE OF ACUTE INJURY. TECHNICAL DOCUMENTATION: JOB ID: [id number] [employer]- All Rights Reserved Reading location - IP/workstation name: [email or web address]
[2018-03-18 13:01] LABS: ANION GAP 7 (5-19); BLOOD UREA NITROGEN 14 mg/dL (7-20); CARBON DIOXIDE 30 mmol/L (22-30); CHLORIDE 104 mmol/L (98-107); GLUCOSE 119 mg/dL (75-110); POTASSIUM 4.1 mmol/L (3.6-5.0)
[2018-03-18 13:18] LABS: ABSOLUTE LYMPHOCYTES# (MANUAL) 2.8 10^3/uL (0.5-4.7); ABSOLUTE MONOCYTES # (MANUAL) 0.8 10^3/uL (0.1-1.4); ABSOLUTE NEUTROPHILS# (MANUAL) 16.4 10^3/uL (1.7-8.2); BASOPHILS % (MANUAL) 0 % (0-2); EOSINOPHILS % (MANUAL) 0 % (0-6); LYMPHOCYTES % (MANUAL) 14 % (13-45); MONOCYTES % (MANUAL) 4 % (3-13); PLATELET COMMENT ADEQUATE; SEGMENTED NEUTROPHILS % (MAN) 82 % (42-78); TOTAL CELLS COUNTED 100
[2018-03-18] MEDS ORDERED: ALBUTEROL SULFATE HFA (90 MCG/PUFF) 200 PUFF/8.5 GM MDI IH PRN (15:02)
[2018-03-18] MEDS ORDERED: PROCHLORPERAZINE MALEATE 10 MG TABLET PO PRN (15:02)
--- NOTE | 2018-03-18 15:56 | PDOC H&P ---
History of Present Illness Admission Date/PCP: 03/18/18 12:45 Viviane COATES MD History of Present Illness: ELBA VARGAS is a 87 year old female who was in her usual state of health and suffered a mechanical fall at home. She said there is an area in her house where there is a short step up into the next room and her foot caught and she went down on her right side. She was somehow able to get up and did not want to go to the hospital because she did not think anything was broken. She kept having a lot of pain and it got to where her to bed to walk and so she decided to come to the ER. Plain films confirmed a subcapital femur fracture. Past Medical History Cardiac Medical History: Reports: Myocardial Infarction, Hyperlipidema, Hypertension Pulmonary Medical History: Reports: Asthma, Chronic Obstructive Pulmonary Disease (COPD) Endocrine Medical History: Reports: Diabetes Mellitus Type 2 Past Surgical History Past Surgical History: Reports: Appendectomy, Cholecystectomy, Hysterectomy, Tonsillectomy Social History Smoking Status: Unknown if Ever Smoked Family History Family History: Reviewed & Not Pertinent Parental Family History Reviewed: Yes - Noncontributory Children Family History Reviewed: Yes - Noncontributory Sibling(s) Family History Reviewed.: Yes - Noncontributory Medication/Allergy Home Medications: Alprazolam [Xanax] 1 mg PO Q12 04/10/11 Buspirone HCl [Buspar] 7.5 mg PO Q12 04/10/11 Ergocalciferol (Vitamin D2) [Vitamin D2] 50,000 unit PO .[id number] PRN 04/10/11 Prochlorperazine Maleate [Compazine 10 mg Tablet] 10 mg PO BIDP PRN 04/10/11 Valsartan [Diovan 160 mg Tablet] 160 mg PO Q12 04/10/11 Albuterol Sulfate [Proair Hfa Inhalation Aerosol 8.5 gm Mdi] 2 puff IH Q6HP PRN 03/18/18 Atorvastatin Calcium [Lipitor 40 mg Tablet] 40 mg PO QHS 03/18/18 Cyanocobalamin (Vitamin B-12) [Vitamin B-12 500 mcg Tablet] 500 mcg PO DAILY 03/18/18 Diphenhydramine HCl [Benadryl] 25 mg PO HSP PRN 03/18/18 Latanoprost [Xalatan 0.005% Oph Soln 2.5 ml] 1 drop OU QHS 03/18/18 Melatonin [Melatonin 3 mg Tablet] 3 mg PO QHS 03/18/18 Metoprolol Tartrate [Lopressor 50 mg Tablet] 50 mg PO Q12 03/18/18 Multivit-Min/Iron/Folic/Lutein [Centrum Silver Women Tablet] 1 each PO DAILY 03/18/18 Timolol Maleate [Timoptic 0.5% Oph Soln 5 ml] 1 drop OU Q12 03/18/18 Ubidecarenone/Vit E Acet [Co Q-10 100 mg Softgel] 1 each PO DAILY 03/18/18 Vit A/Vit C/Vit E/Zinc/Copper [Preservision Areds Tablet] 2 each PO DAILY 03/18/18 Allergies/Adverse Reactions: Sulfa (Sulfonamide Antibiotics) Allergy (Mild, Verified 11/18/16 12:38) Nausea amlodipine [Amlodipine] Adverse Reaction (Mild, Verified 11/18/16 12:38) sick to stomach amoxicillin Adverse Reaction (Verified 11/18/16 12:38) Review of Systems All systems: reviewed and no additional remarkable complaints except as stated - 10 point review of systems was conducted with the patient and was negative except as noted above Physical Exam Vital Signs: Temp Pulse Resp BP Pulse Ox 26 H 191/96 H 93 03/18/18 12:03 03/18/18 12:03 03/18/18 12:03 General appearance: PRESENT: no acute distress, cooperative, disheveled Head exam: PRESENT: atraumatic, normocephalic Eye exam: PRESENT: EOMI, PERRLA. ABSENT: conjunctival injection, nystagmus, scleral icterus Ear exam: PRESENT: normal external ear exam Mouth exam: PRESENT: moist, neck supple Throat exam: ABSENT: post pharyngeal erythema Neck exam: PRESENT: full ROM. ABSENT: carotid bruit, JVD, lymphadenopathy, meningismus, tenderness, thyromegaly Respiratory exam: PRESENT: clear to auscultation twin, symmetrical, unlabored. ABSENT: accessory muscle use, crackles, prolonged expiratory phas, rhonchi, tachypnea, wheezes Cardiovascular exam: PRESENT: RRR, +S1, +S2 Pulses: PRESENT: normal carotid pulses Vascular exam: PRESENT: normal capillary refill GI/Abdominal exam: PRESENT: normal bowel sounds, soft. ABSENT: distended, guarding, rebound, tenderness Extremities exam: PRESENT: tenderness - Right hip. ABSENT: clubbing, pedal edema Musculoskeletal exam: PRESENT: deformity - Right hip there are swelling and prominence, tenderness Neurological exam: PRESENT: alert, awake, oriented to person, oriented to place, oriented to time, oriented to situation, CN II-XII grossly intact. ABSENT: motor sensory deficit Psychiatric exam: PRESENT: appropriate affect, normal mood Skin exam: PRESENT: dry, warm Results Laboratory Results: 03/18/18 12:24 03/18/18 12:24 03/18/18 03/18/18 12:24 12:24 WBC 20.0 H RBC 4.91 Hgb 15.9 H Hct 47.1 H MCV 96 MCH 32.3 MCHC 33.7 RDW 13.6 Plt Count 157 Seg Neutrophils % Not Reportable Lymphocytes % Not Reportable Monocytes % Not Reportable Eosinophils % Not Reportable Basophils % Not Reportable Absolute Neutrophils Not Reportable Absolute Lymphocytes Not Reportable Absolute Monocytes Not Reportable Absolute Eosinophils Not Reportable Absolute Basophils Not Reportable Sodium 141.0 Potassium 4.1 Chloride 104 Carbon Dioxide 30 Anion Gap 7 BUN 14 Creatinine 1.08 Est GFR ( Amer) 58 L Est GFR (Non-Af Amer) 48 L Glucose 119 H Calcium 9.0 Impressions: Hip/Pelvis X-Ray 03/18/18 00:00 IMPRESSION: Acute right subcapital femoral neck fracture with varus angulation Femur X-Ray 03/18/18 11:09 IMPRESSION: Acute right subcapital femoral neck fracture with varus angulation. Remainder the femur two views is otherwise unremarkable Head CT 03/18/18 11:09 IMPRESSION: No acute findings EVIDENCE OF ACUTE STROKE: NO. Knee X-Ray 03/18/18 11:09 IMPRESSION: NEGATIVE STUDY OF THE RIGHT KNEE. NO RADIOGRAPHIC EVIDENCE OF ACUTE INJURY. Assessment & Plan - Diagnosis (1) Closed right hip fracture Qualifiers: Encounter type: initial encounter Qualified Code(s): S72.001A - Fracture of unspecified part of neck of right femur, initial encounter for closed fracture Is this a current diagnosis for this admission?: Yes Plan: Ortho has been consulted. Pain control. She will likely need to go to a [place] [facility] facility after surgery. (2) Hypertension Qualifiers: Hypertension type: essential hypertension Qualified Code(s): I10 - Essential (primary) hypertension Is this a current diagnosis for this admission?: Yes Plan: Her blood pressure was high when she came in, likely due to pain, and she says she took her blood pressure medication this morning. Once we get her pain under control we will see how well controlled her blood pressure is. We will adjust her coverage as needed. - Time Time Spent: 50 to 70 Minutes
[2018-03-18] MEDS: MORPHINE SULFATE 10 MG/ML INJ IV PRN (16:14)
--- NOTE | 2018-03-18 21:40 | EKG REPORT ---
SEVERITY:- ABNORMAL ECG - SINUS RHYTHM LEFT BUNDLE BRANCH BLOCK LVH WITH SECONDARY REPOLARIZATION ABNORMALITY ANTERIOR Q WAVES, POSSIBLY DUE TO LVH : Confirmed by: Yun Meyer MD 18-Mar-2018 21:39:43
[2018-03-18] MEDS ORDERED: (PENDING PHARMACY ID) (Alprazolam [Xanax 1 Mg Tablet] 1 MG) PO SCH (22:00)
[2018-03-18] MEDS ORDERED: MELATONIN 3 MG TABLET PO SCH (22:00)
[2018-03-18] MEDS ORDERED: LATANOPROST 0.005% OPH SOLN 2.5 ML OU SCH (22:00)
[2018-03-18] MEDS ORDERED: (PENDING PHARMACY ID) (Buspirone Hcl [Buspar 5 Mg Tablet] 7.5 MG) PO SCH (22:00)
[2018-03-18] MEDS ORDERED: METOPROLOL TARTRATE 50 MG TABLET PO ONE (23:00)
[2018-03-18] MEDS ORDERED: MELATONIN 3 MG TABLET PO ONE (23:00)
[2018-03-18] MEDS ORDERED: ATORVASTATIN CALCIUM 40 MG TABLET PO ONE (23:00)
[2018-03-18] MEDS ORDERED: ALPRAZOLAM 0.5 MG TABLET PO ONE (23:00)
[2018-03-18] MEDS ORDERED: LATANOPROST 0.005% OPH SOLN 2.5 ML OU ONE (23:00)
[2018-03-19] MEDS: NORMAL SALINE 1000 ML 1,000 ML IV PRN ×2 (02:20→13:01)
[2018-03-19] MEDS: TIMOLOL MALEATE 0.5% OPH SOLN 5 ML OU SCH ×3 (03:54→21:43)
[2018-03-19 05:50] LABS: HEMATOCRIT 46.3 % (36.0-47.0); MEAN CORPUSCULAR HEMOGLOBIN 32.5 pg (27.0-33.4); MEAN CORPUSCULAR HGB CONC 34.5 g/dL (32.0-36.0); MEAN CORPUSCULAR VOLUME 94 fl (80-97); PLATELET COUNT 100 10^3/uL (150-450); RED BLOOD COUNT 4.91 10^6/uL (3.72-5.28); RED CELL DISTRIBUTION WIDTH 13.9 % (11.5-14.0); WHITE BLOOD COUNT 16.6 10^3/uL (4.0-10.5)
[2018-03-19 06:31] LABS: ANION GAP 10 (5-19); BLOOD UREA NITROGEN 15 mg/dL (7-20); CARBON DIOXIDE 30 mmol/L (22-30); CHLORIDE 102 mmol/L (98-107); GLUCOSE 113 mg/dL (75-110); POTASSIUM 3.6 mmol/L (3.6-5.0); SODIUM 141.7 mmol/L (137-145)
[2018-03-19] MEDS: ACETAMINOPHEN 325 MG TABLET PO PRN ×2 (07:05→21:47)
[2018-03-19] MEDS: CYANOCOBALAMIN (VITAMIN B-12) 1,000 MCG TABLET PO SCH (09:50)
[2018-03-19] MEDS: METOPROLOL TARTRATE 50 MG TABLET PO SCH ×2 (09:51→21:41)
[2018-03-19] MEDS: ALPRAZOLAM 0.5 MG TABLET PO SCH ×2 (09:51→21:46)
[2018-03-19] MEDS: MULTIVITAMIN TABLET PO SCH (09:52)
[2018-03-19] MEDS ORDERED: VIT A PO SCH (10:00)
[2018-03-19] MEDS ORDERED: (PENDING PHARMACY ID) (Multivit-Min/Iron/Folic/Lutein [Centrum Silver Women Tablet] 1 EACH PO SCH (10:00)
[2018-03-19] MEDS ORDERED: COPPER PO SCH (10:00)
[2018-03-19] MEDS ORDERED: VIT C PO SCH (10:00)
[2018-03-19] MEDS ORDERED: (PENDING PHARMACY ID) (Ubidecarenone/Vit E Acet [Co Q-10 100 Mg Softgel] 1 EACH) PO SCH (10:00)
[2018-03-19] MEDS ORDERED: [UNRECOGNIZED DRUG - OTHER] PO SCH (10:00)
[2018-03-19] MEDS ORDERED: (PENDING PHARMACY ID) (Cyanocobalamin (Vitamin B-12) [Vitamin B-12 500 Mcg Tablet] 500 MCG PO SCH (10:00)
[2018-03-19] MEDS ORDERED: VIT E PO SCH (10:00)
[2018-03-19] MEDS ORDERED: ZINC PO SCH (10:00)
[2018-03-19] MEDS: VALSARTAN 160 MG TABLET PO SCH ×2 (10:36→21:35)
--- NOTE | 2018-03-19 14:39 | PDOC CONSULTATION ---
Consultation Consult Date: 03/19/18 Consult reason:: Right displaced femoral neck fracture History of Present Illness Admission Date/PCP: 03/18/18 14:53 Viviane COATES MD History of Present Illness: ELBA VARGAS is a 87 year old female status post fall 2 days ago onto her right hip. She waited until the following day to be brought to the hospital for evaluation. Patient was seen yesterday and and diagnosed with a displaced right femoral neck fracture. Orthopedic was consulted. Currently patient's pain is under adequate control but complains of left hip pain.inability to weight-bear. Tenderness palpation and 5 out of 5 pain. At rest her pain is about a 2 out of 5. Denies any numbness or tingling or paresthesias. Past Medical History Cardiac Medical History: Reports: Myocardial Infarction, Hyperlipidema, Hypertension Pulmonary Medical History: Reports: Asthma, Chronic Obstructive Pulmonary Disease (COPD) Endocrine Medical History: Reports: Diabetes Mellitus Type 2 Past Surgical History Past Surgical History: Reports: Appendectomy, Cholecystectomy, Hysterectomy, Tonsillectomy Social History Smoking Status: Never Smoker Frequency of Alcohol Use: None Hx Recreational Drug Use: No Drugs: None Hx Prescription Drug Abuse: No - Advance Directive Resuscitation Status: Full Code Family History Family History: Reviewed & Not Pertinent Parental Family History Reviewed: No Children Family History Reviewed: No Sibling(s) Family History Reviewed.: No Medication/Allergy Home Medications: Alprazolam [Xanax] 1 mg PO Q12 04/10/11 Buspirone HCl [Buspar] 7.5 mg PO Q12 04/10/11 Ergocalciferol (Vitamin D2) [Vitamin D2] 50,000 unit PO .[id number] PRN 04/10/11 Prochlorperazine Maleate [Compazine 10 mg Tablet] 10 mg PO BIDP PRN 04/10/11 Valsartan [Diovan 160 mg Tablet] 160 mg PO Q12 04/10/11 Albuterol Sulfate [Proair Hfa Inhalation Aerosol 8.5 gm Mdi] 2 puff IH Q6HP PRN 03/18/18 Atorvastatin Calcium [Lipitor 40 mg Tablet] 40 mg PO QHS 03/18/18 Cyanocobalamin (Vitamin B-12) [Vitamin B-12 500 mcg Tablet] 500 mcg PO DAILY 03/18/18 Diphenhydramine HCl [Benadryl] 25 mg PO HSP PRN 03/18/18 Latanoprost [Xalatan 0.005% Oph Soln 2.5 ml] 1 drop OU QHS 03/18/18 Melatonin [Melatonin 3 mg Tablet] 3 mg PO QHS 03/18/18 Metoprolol Tartrate [Lopressor 50 mg Tablet] 50 mg PO Q12 03/18/18 Multivit-Min/Iron/Folic/Lutein [Centrum Silver Women Tablet] 1 each PO DAILY 03/18/18 Timolol Maleate [Timoptic 0.5% Oph Soln 5 ml] 1 drop OU Q12 03/18/18 Ubidecarenone/Vit E Acet [Co Q-10 100 mg Softgel] 1 each PO DAILY 03/18/18 Vit A/Vit C/Vit E/Zinc/Copper [Preservision Areds Tablet] 2 each PO DAILY 03/18/18 Allergies/Adverse Reactions: Sulfa (Sulfonamide Antibiotics) Allergy (Mild, Verified 11/18/16 12:38) Nausea amlodipine [Amlodipine] Adverse Reaction (Mild, Verified 11/18/16 12:38) sick to stomach amoxicillin Adverse Reaction (Verified 11/18/16 12:38) Review of Systems Review of Systems: Constitutional: [PRESENT: as per HPI. ABSENT: chills, fever(s), headache(s), weight gain, weight loss] Eyes: [ABSENT: visual disturbances] Ears: [ABSENT: hearing changes] Cardiovascular: [ABSENT: chest pain, dyspnea on exertion, edema, orthropnea, palpitations] Respiratory: [ABSENT: cough, hemoptysis] Gastrointestinal: [ABSENT: abdominal pain, constipation, diarrhea, hematemesis, hematochezia, nausea, vomiting] Genitourinary: [ABSENT: dysuria, hematuria] Musculoskeletal: As per HPI Integumentary: [ABSENT: rash, wounds] Neurological: [ABSENT: abnormal gait, abnormal speech, confusion, dizziness, focal weakness, syncope] Psychiatric: [ABSENT: anxiety, depression, homicidal ideation, suicidal ideation] Endocrine: [ABSENT: cold intolerance, heat intolerance, menstrual abnormalities, polydipsia, polyuria] Hematologic/Lymphatic: [ABSENT: easy bleeding, easy bruising, lymphadenopathy] Physical Exam Vital Signs: Temp Pulse Resp BP Pulse Ox 37.1 C 69 16 124/80 90 L 03/19/18 11:46 03/19/18 11:46 03/19/18 11:46 03/19/18 11:46 03/19/18 11:46 Intake & Output 03/18/18 03/19/18 03/20/18 06:59 06:59 06:59 Intake Total 0 1000 Output Total 325 Balance -325 1000 Weight 62.7 kg Adult Front & Back Image: 1 - Tender palpation of the groin. Pain with attempted logrolling range of motion. Shortened externally rotated extremity. Good capillary refill with intact EHL and FHL and good sensation to light touch. Results Laboratory Results: 03/19/18 04:55 03/19/18 04:55 03/19/18 03/19/18 04:55 04:55 WBC 16.6 H RBC 4.91 Hgb 16.0 H Hct 46.3 MCV 94 MCH 32.5 MCHC 34.5 RDW 13.9 Plt Count 100 L Sodium 141.7 Potassium 3.6 Chloride 102 Carbon Dioxide 30 Anion Gap 10 BUN 15 Creatinine 0.91 Est GFR ( Amer) > 60 Est GFR (Non-Af Amer) 59 L Glucose 113 H Calcium 9.0 Impressions: Hip/Pelvis X-Ray 03/18/18 00:00 IMPRESSION: Acute right subcapital femoral neck fracture with varus angulation Femur X-Ray 03/18/18 11:09 IMPRESSION: Acute right subcapital femoral neck fracture with varus angulation. Remainder the femur two views is otherwise unremarkable Head CT 03/18/18 11:09 IMPRESSION: No acute findings EVIDENCE OF ACUTE STROKE: NO. Knee X-Ray 03/18/18 11:09 IMPRESSION: NEGATIVE STUDY OF THE RIGHT KNEE. NO RADIOGRAPHIC EVIDENCE OF ACUTE INJURY. Status: Image reviewed by me Assessment & Plan - Diagnosis (1) Closed right hip fracture Qualifiers: Encounter type: initial encounter Qualified Code(s): S72.001A - Fracture of unspecified part of neck of right femur, initial encounter for closed fracture Is this a current diagnosis for this admission?: Yes Plan: 87-year-old female with displaced right hip fracture. Patient is amenable to right hip hemiarthroplasty. Discussed the risk and benefits. Patient agreed to proceed with surgery. We will pre-op today and proceed with surgery tomorrow. We will place n.p.o. and start IV fluids. Continue with pain meds for pain control
--- NOTE | 2018-03-19 15:58 | PDOC PROGRESS REPORT ---
Subjective Progress Note for:: 03/19/18 Subjective:: No adverse events overnight. Pain is fairly well controlled. Blood pressure has improved. She says as long as she stays in one spot and does not move her hip does not hurt too bad. Reason For Visit: RIGHT FEMUR FRACTURE Physical Exam Vital Signs: Temp Pulse Resp BP Pulse Ox 99.1 F 75 18 138/53 H 91 L 03/19/18 15:54 03/19/18 15:54 03/19/18 15:54 03/19/18 15:54 03/19/18 15:54 Intake & Output 03/18/18 03/19/18 03/20/18 06:59 06:59 06:59 Intake Total 0 1000 Output Total 325 Balance -325 1000 Weight 62.7 kg General appearance: PRESENT: no acute distress, cooperative, disheveled Respiratory exam: PRESENT: clear to auscultation twin, symmetrical, unlabored. ABSENT: accessory muscle use, crackles, prolonged expiratory phase, rhonchi, tachypnea, wheezes Cardiovascular exam: PRESENT: RRR, +S1, +S2 Pulses: PRESENT: normal carotid pulses Vascular exam: PRESENT: normal capillary refill GI/Abdominal exam: PRESENT: normal bowel sounds, soft. ABSENT: distended, guarding, rebound, tenderness Extremities exam: PRESENT: tenderness - Right hip. ABSENT: clubbing, pedal edema Musculoskeletal exam: PRESENT: deformity - Right hip there are swelling and prominence, tenderness Neurological exam: PRESENT: alert, awake, oriented to person, oriented to place, oriented to time, oriented to situation Psychiatric exam: PRESENT: appropriate affect, normal mood Skin exam: PRESENT: dry, warm Results Laboratory Results: 03/19/18 04:55 03/19/18 04:55 03/19/18 03/19/18 04:55 04:55 WBC 16.6 H RBC 4.91 Hgb 16.0 H Hct 46.3 MCV 94 MCH 32.5 MCHC 34.5 RDW 13.9 Plt Count 100 L Sodium 141.7 Potassium 3.6 Chloride 102 Carbon Dioxide 30 Anion Gap 10 BUN 15 Creatinine 0.91 Est GFR ( Amer) > 60 Est GFR (Non-Af Amer) 59 L Glucose 113 H Calcium 9.0 Impressions: Hip/Pelvis X-Ray 03/18/18 00:00 IMPRESSION: Acute right subcapital femoral neck fracture with varus angulation Femur X-Ray 03/18/18 11:09 IMPRESSION: Acute right subcapital femoral neck fracture with varus angulation. Remainder the femur two views is otherwise unremarkable Head CT 03/18/18 11:09 IMPRESSION: No acute findings EVIDENCE OF ACUTE STROKE: NO. Knee X-Ray 03/18/18 11:09 IMPRESSION: NEGATIVE STUDY OF THE RIGHT KNEE. NO RADIOGRAPHIC EVIDENCE OF ACUTE INJURY. Assessment & Plan - Diagnosis (1) Closed right hip fracture Qualifiers: Encounter type: initial encounter Qualified Code(s): S72.001A - Fracture of unspecified part of neck of right femur, initial encounter for closed fracture Is this a current diagnosis for this admission?: Yes Plan: Ortho has been consulted. Pain control. She will likely need to go to a assisted facility after surgery. Plan is for her to go to the OR tomorrow. (2) Hypertension Qualifiers: Hypertension type: essential hypertension Qualified Code(s): I10 - Essential (primary) hypertension Is this a current diagnosis for this admission?: Yes Plan: Well-controlled on her current medications, and also with pain control. - Time Time Spent with patient: 25-34 minutes
[2018-03-19 18:02] LABS: ABSOLUTE BASOPHILS # (AUTO) 0.1 10^3/uL (0.0-0.2); ABSOLUTE EOSINOPHILS # (AUTO) 0.3 10^3/uL (0.0-0.6); ABSOLUTE LYMPHOCYTES (AUTO) 1.3 10^3/uL (0.5-4.7); ABSOLUTE MONOCYTES (AUTO) 1.3 10^3/uL (0.1-1.4); ABSOLUTE NEUT (AUTO) 12.4 10^3/uL (1.7-8.2); BASOPHILS % (AUTO) 0.6 % (0-2); EOSINOPHILS % (AUTO) 1.9 % (0-6); LYMPHOCYTES % (AUTO) 8.6 % (13-45); MEAN CORPUSCULAR HEMOGLOBIN 32.4 pg (27.0-33.4); MEAN CORPUSCULAR HGB CONC 34.2 g/dL (32.0-36.0); MEAN CORPUSCULAR VOLUME 95 fl (80-97); MONOCYTES % (AUTO) 8.7 % (3-13); PLATELET COUNT 118 10^3/uL (150-450); RED BLOOD COUNT 4.63 10^6/uL (3.72-5.28); RED CELL DISTRIBUTION WIDTH 13.7 % (11.5-14.0); SEGMENTED NEUTROPHILS % (AUTO) 80.2 % (42-78); TOTAL CELLS COUNTED % (AUTO) 100 %; WHITE BLOOD COUNT 15.4 10^3/uL (4.0-10.5)
[2018-03-19] MEDS: ATORVASTATIN CALCIUM 40 MG TABLET PO SCH (21:39)
[2018-03-19] MEDS: MELATONIN 3 MG TABLET PO SCH (21:43)
[2018-03-19] MEDS: LATANOPROST 0.005% OPH SOLN 2.5 ML OU SCH (21:44)
[2018-03-19] MEDS ORDERED: VALSARTAN 160 MG TABLET PO SCH (22:00)
[2018-03-19] MEDS ORDERED: METOPROLOL TARTRATE 50 MG TABLET PO SCH (22:00)
[2018-03-20 06:06] LABS: INTERNATIONAL RATION (INR) 1.03
[2018-03-20 06:30] LABS: ANION GAP 9 (5-19); BLOOD UREA NITROGEN 12 mg/dL (7-20); CALCIUM 8.8 mg/dL (8.4-10.2); CARBON DIOXIDE 29 mmol/L (22-30); CHLORIDE 105 mmol/L (98-107); GLUCOSE 123 mg/dL (75-110); POTASSIUM 3.4 mmol/L (3.6-5.0); SODIUM 142.5 mmol/L (137-145)
[2018-03-20 07:54] LABS: HEMATOCRIT 45.1 % (36.0-47.0); HEMOGLOBIN 15.4 g/dL (12.0-15.5); MEAN CORPUSCULAR HEMOGLOBIN 32.2 pg (27.0-33.4); MEAN CORPUSCULAR HGB CONC 34.3 g/dL (32.0-36.0); MEAN CORPUSCULAR VOLUME 94 fl (80-97); PLATELET COUNT 104 10^3/uL (150-450); RED CELL DISTRIBUTION WIDTH 13.6 % (11.5-14.0); WHITE BLOOD COUNT 16.9 10^3/uL (4.0-10.5)
[2018-03-20] MEDS ORDERED: VANCOMYCIN HCL 1,000 MG in DEXTROSE 5%-WATER 250 ML IV PRN (09:00)
[2018-03-20] MEDS ORDERED: TRANEXAMIC ACID INJ/PF 1,000 MG/10 ML SDV IV PRN (09:00)
[2018-03-20] MEDS: METOPROLOL TARTRATE 50 MG TABLET PO SCH ×2 (10:20→22:10)
[2018-03-20] MEDS: ALPRAZOLAM 0.5 MG TABLET PO SCH ×2 (10:21→22:11)
[2018-03-20] MEDS: MULTIVITAMIN TABLET PO SCH (10:28)
[2018-03-20] MEDS: CYANOCOBALAMIN (VITAMIN B-12) 1,000 MCG TABLET PO SCH (10:28)
[2018-03-20] MEDS: VALSARTAN 160 MG TABLET PO SCH ×2 (10:29→22:11)
--- NOTE | 2018-03-20 10:31 | PDOC PROGRESS REPORT ---
Subjective Progress Note for:: 03/20/18 Subjective:: No adverse events overnight. No new complaints. Pain is been well controlled. Her blood pressure was up this morning but she is still due to get her blood pressure medications before surgery. She is n.p.o. awaiting her fracture repair surgery. Reason For Visit: RIGHT FEMUR FRACTURE Physical Exam Vital Signs: Temp Pulse Resp BP Pulse Ox 98.6 F 88 18 185/69 H 94 03/20/18 08:14 03/20/18 08:14 03/20/18 08:14 03/20/18 08:14 03/20/18 08:14 Intake & Output 03/19/18 03/20/18 03/21/18 06:59 06:59 06:59 Intake Total 0 1650 Output Total 325 1375 Balance -325 275 Weight 62.7 kg 61.4 kg General appearance: PRESENT: no acute distress, cooperative, disheveled Respiratory exam: PRESENT: clear to auscultation twin, symmetrical, unlabored. ABSENT: accessory muscle use, crackles, prolonged expiratory phase, rhonchi, tachypnea, wheezes Cardiovascular exam: PRESENT: RRR, +S1, +S2 Pulses: PRESENT: normal carotid pulses Vascular exam: PRESENT: normal capillary refill GI/Abdominal exam: PRESENT: normal bowel sounds, soft. ABSENT: distended, guarding, rebound, tenderness Extremities exam: PRESENT: tenderness - Right hip. ABSENT: clubbing, pedal edema Musculoskeletal exam: PRESENT: deformity - Right hip there are swelling and pr ominence, tenderness Neurological exam: PRESENT: alert, awake, oriented to person, oriented to place, oriented to time, oriented to situation Psychiatric exam: PRESENT: appropriate affect, normal mood Skin exam: PRESENT: dry, warm Results Laboratory Results: 03/20/18 07:29 03/20/18 05:04 03/19/18 03/20/18 03/20/18 17:45 05:04 05:04 WBC 15.4 H Cancelled RBC 4.63 Cancelled Hgb 15.0 Cancelled Hct 44.0 Cancelled MCV 95 Cancelled MCH 32.4 Cancelled MCHC 34.2 Cancelled RDW 13.7 Cancelled Plt Count 118 L Cancelled Seg Neutrophils % 80.2 H Lymphocytes % 8.6 L Monocytes % 8.7 Eosinophils % 1.9 Basophils % 0.6 Absolute Neutrophils 12.4 H Absolute Lymphocytes 1.3 Absolute Monocytes 1.3 Absolute Eosinophils 0.3 Absolute Basophils 0.1 Sodium 142.5 Potassium 3.4 L Chloride 105 Carbon Dioxide 29 Anion Gap 9 BUN 12 Creatinine 0.83 Est GFR ( Amer) > 60 Est GFR (Non-Af Amer) > 60 Glucose 123 H Calcium 8.8 03/20/18 07:29 WBC 16.9 H RBC 4.80 Hgb 15.4 Hct 45.1 MCV 94 MCH 32.2 MCHC 34.3 RDW 13.6 Plt Count 104 L Seg Neutrophils % Lymphocytes % Monocytes % Eosinophils % Basophils % Absolute Neutrophils Absolute Lymphocytes Absolute Monocytes Absolute Eosinophils Absolute Basophils Sodium Potassium Chloride Carbon Dioxide Anion Gap BUN Creatinine Est GFR ( Amer) Est GFR (Non-Af Amer) Glucose Calcium Impressions: Hip/Pelvis X-Ray 03/18/18 00:00 IMPRESSION: Acute right subcapital femoral neck fracture with varus angulation Femur X-Ray 03/18/18 11:09 IMPRESSION: Acute right subcapital femoral neck fracture with varus angulation. Remainder the femur two views is otherwise unremarkable Head CT 03/18/18 11:09 IMPRESSION: No acute findings EVIDENCE OF ACUTE STROKE: NO. Knee X-Ray 03/18/18 11:09 IMPRESSION: NEGATIVE STUDY OF THE RIGHT KNEE. NO RADIOGRAPHIC EVIDENCE OF ACUTE INJURY. Assessment & Plan - Diagnosis (1) Closed right hip fracture Qualifiers: Encounter type: initial encounter Qualified Code(s): S72.001A - Fracture of unspecified part of neck of right femur, initial encounter for closed fracture Is this a current diagnosis for this admission?: Yes Plan: Ortho has been consulted. Pain control. She will likely need to go to a alf facility after surgery. Plan is for her to go to the OR today. (2) Hypertension Qualifiers: Hypertension type: essential hypertension Qualified Code(s): I10 - Essential (primary) hypertension Is this a current diagnosis for this admission?: Yes Plan: Well-controlled on her current medications, and also with pain control. Again, high this morning, but she is due to get her medications prior to surgery. - Time Time Spent with patient: 15-24 minutes
[2018-03-20] MEDS: RINGERS SOLUTION,LACTATED 1,000 ML IV PRN ×2 (10:48→20:36)
[2018-03-20] MEDS ORDERED: BUPIVACAINE HCL/DEX-WATER/PF 15 MG/2 ML AMPULE ONE (13:00)
[2018-03-20] MEDS ORDERED: FENTANYL CITRATE INJ/PF 100 MCG/2 ML AMPUL ONE (13:02)
[2018-03-20] MEDS ORDERED: EPHEDRINE SULFATE INJ 50 MG/1 ML AMPULE ONE (13:03)
[2018-03-20] MEDS ORDERED: ONDANSETRON HCL INJ/PF 4 MG/2 ML SDV ONE (13:03)
[2018-03-20] MEDS ORDERED: LIDOCAINE 2% INJ-PF (20 MG/ML) 10 ML AMPUL ONE (13:03)
[2018-03-20] MEDS ORDERED: PROPOFOL INJ 200 MG/20 ML VIAL IV ONE (13:03)
[2018-03-20] MEDS ORDERED: TRANEXAMIC ACID INJ/PF 1,000 MG/10 ML SDV IV ONE ×2 (13:03→17:00)
[2018-03-20] MEDS ORDERED: MIDAZOLAM 2 MG/2 ML INJ ONE (13:03)
[2018-03-20] MEDS ORDERED: VANCOMYCIN HCL INJ 500 MG VIAL ONE (13:43)
[2018-03-20] MEDS ORDERED: BUPIVACAINE HCL 0.5%-EPI 1:200000 INJ/PF 30 ML VIAL ONE (13:50)
[2018-03-20] MEDS ORDERED: DIPHENHYDRAMINE HCL 50 MG/ML VIAL IV PRN ×2 (14:37→14:42)
[2018-03-20] MEDS ORDERED: FENTANYL CITRATE INJ/PF 100 MCG/2 ML AMPUL IV PRN ×3 (14:37)
[2018-03-20] MEDS ORDERED: MORPHINE SULFATE 10 MG/ML INJ IV PRN ×5 (14:37→14:42)
[2018-03-20] MEDS ORDERED: OXYCODONE-ACETAMINOPHEN 5-325 MG TABLET PO PRN ×2 (14:37)
[2018-03-20] MEDS ORDERED: ONDANSETRON HCL INJ/PF 4 MG/2 ML SDV IV PRN ×2 (14:37→14:42)
[2018-03-20] MEDS ORDERED: MEPERIDINE HCL/PF INJ 25 MG/1 ML DISP.SYRIN IV PRN (14:37)
[2018-03-20] MEDS ORDERED: PROMETHAZINE HCL INJ 25 MG/1 ML VIAL IV PRN ×2 (14:37)
[2018-03-20] MEDS ORDERED: OXYCODONE HCL IR 5 MG TABLET PO PRN (14:42)
[2018-03-20] MEDS ORDERED: ZOLPIDEM TARTRATE 5 MG TABLET PO PRN (14:42)
[2018-03-20] MEDS ORDERED: RINGERS SOLUTION,LACTATED 1,000 ML IV PRN (14:42)
[2018-03-20] MEDS ORDERED: ONDANSETRON 4 MG TAB.RAPDIS PO PRN (14:42)
[2018-03-20] MEDS ORDERED: MAG HYDROX/AL HYDROX/SIMETH SUSP 30 ML UDCUP PO PRN (14:42)
[2018-03-20] MEDS ORDERED: ACETAMINOPHEN 325 MG TABLET PO PRN (14:42)
--- NOTE | 2018-03-20 14:42 | Operative Report ---
Operative Report DATE OF SURGERY: 03/20/18 PREOPERATIVE DIAGNOSIS: Right displaced femoral neck fracture OPERATION: Right proximal femoral hemiarthroplasty SURGEON: BARRETT [place] ANESTHESIA: Spinal TISSUE REMOVED OR ALTERED: Femoral head to pathology ESTIMATED BLOOD LOSS: 100 PROCEDURE: With the patient in a left lateral decubitus position the right lower extremity hindquarter prepped and draped in a sterile fashion. A curvilinear incision made over the greater trochanter a posterior approach the hip was taken. The femur was retracted anteriorly and underlying femoral neck and head are retrieved using a corkscrew. The femoral head was measured and noted to be 45 millimeters. Attention is now turned to the femur. Access is gained to the femoral canal using a box osteotome to the piriformis fossa. The femur is then prepared using a series of tapered broaches until a number Keyanna Accolade 2 size 5 broach is seated. A trial reduction was now performed using a 45 head and standard neck. Leg length was restored and there is excellent anterior posterior stability. A decision was made to proceed with this construct. All trial implants were removed. The final number 5 femoral stem is impacted into the canal. The standard neck is impacted onto the trunnion. Final unipolar head 45 millimeters is impacted onto the neck. The hip was reduced. The wound is copiously irrigated with pulsed lavage. A subsequent closed in layers using Vicryl and ayaz. A sterile dressing is applied. The patient was returned to the recovery room in satisfactory condition.
--- NOTE | 2018-03-20 16:05 | RADIOLOGY REPORT (SQ) ---
EXAM DESCRIPTION: PELVIS AP COMPLETED DATE/TIME: 03/20/2018 3:48 pm REASON FOR STUDY: Post Op Long Cassette in PACU COMPARISON: None. NUMBER OF VIEWS: One view TECHNIQUE: Digital radiographic images of the pelvis post-procedure LIMITATIONS: None. FINDINGS: BONES: No worrisome or unexpected findings post-procedure. DEVICE: Bipolar right hip arthroplasty. SOFT TISSUES: No worrisome findings. Expected postoperative soft tissue changes. IMPRESSION: SATISFACTORY POSTOPERATIVE PELVIS. TECHNICAL DOCUMENTATION: JOB ID: [id number] [employer]- All Rights Reserved Reading location - IP/workstation name: [email or web address]
[2018-03-20] MEDS: TIMOLOL MALEATE 0.5% OPH SOLN 5 ML OU SCH ×2 (17:06→22:10)
[2018-03-20] MEDS: SENNOSIDES/DOCUSATE 8.6-50 MG 1 EACH TABLET PO SCH (18:57)
[2018-03-20] MEDS: MORPHINE SULFATE 10 MG/ML INJ IV PRN (20:29)
[2018-03-20] MEDS: LATANOPROST 0.005% OPH SOLN 2.5 ML OU SCH (22:10)
[2018-03-20] MEDS: ATORVASTATIN CALCIUM 40 MG TABLET PO SCH (22:11)
[2018-03-20] MEDS: MELATONIN 3 MG TABLET PO SCH (22:11)
[2018-03-20] MEDS: IBUPROFEN 800 MG in NORMAL SALINE 250 ML IV SCH (22:49)
[2018-03-20] MEDS: OXYCODONE HCL SR 10 MG TABLET PO SCH (22:51)
[2018-03-20] MEDS: BUSPIRONE 5 MG PO SCH (22:56)
[2018-03-21] MEDS ORDERED: VANCOMYCIN HCL 1,000 MG in DEXTROSE 5%-WATER 250 ML IV ONE (03:00)
[2018-03-21] MEDS: RINGERS SOLUTION,LACTATED 1,000 ML IV PRN (03:30)
[2018-03-21] MEDS: IBUPROFEN 800 MG in NORMAL SALINE 250 ML IV SCH ×3 (05:36→22:04)
[2018-03-21] MEDS: LANSOPRAZOLE 30 MG TAB.RAP.DR PO SCH (05:36)
--- NOTE | 2018-03-21 06:33 | PDOC PROGRESS REPORT ---
Subjective Progress Note for:: 03/21/18 Reason For Visit: RIGHT FEMORAL NECK FRACTURE 87-year-old white female postop day 1 status post right proximal femoral hemiarthroplasty for femoral neck fracture. Uneventful postoperative course thus far. No physical therapy rendered yesterday. Physical Exam Vital Signs: Temp Pulse Resp BP Pulse Ox 36.6 C 95 17 125/71 97 03/21/18 03:35 03/21/18 03:35 03/21/18 03:35 03/21/18 03:35 03/21/18 03:35 Intake & Output 03/19/18 03/20/18 03/21/18 06:59 06:59 06:59 Intake Total 0 1650 6550 Output Total 325 1375 3830 Balance -761 720 8620 Weight 62.7 kg 61.4 kg 64.2 kg Physical Exam: Elderly white female lying in bed sleeping soundly. General appearance: PRESENT: no acute distress Head exam: PRESENT: normocephalic Respiratory exam: PRESENT: unlabored Cardiovascular exam: PRESENT: RRR Pulses: PRESENT: +1 pedal pulses bilateral Vascular exam: PRESENT: normal capillary refill GI/Abdominal exam: PRESENT: soft Rectal exam: PRESENT: deferred Extremities exam: PRESENT: other - Right hip dressing clean dry and intact. Leg lengths are equal. Distal neurovascular examination is intact. Skin exam: PRESENT: dry, intact, warm. ABSENT: cyanosis, rash Results Laboratory Results: 03/20/18 07:29 03/20/18 05:04 03/20/18 03/20/18 03/20/18 05:04 05:04 07:29 WBC Cancelled 16.9 H RBC Cancelled 4.80 Hgb Cancelled 15.4 Hct Cancelled 45.1 MCV Cancelled 94 MCH Cancelled 32.2 MCHC Cancelled 34.3 RDW Cancelled 13.6 Plt Count Cancelled 104 L Sodium 142.5 Potassium 3.4 L Chloride 105 Carbon Dioxide 29 Anion Gap 9 BUN 12 Creatinine 0.83 Est GFR ( Amer) > 60 Est GFR (Non-Af Amer) > 60 Glucose 123 H Calcium 8.8 Impressions: Hip/Pelvis X-Ray 03/18/18 00:00 IMPRESSION: Acute right subcapital femoral neck fracture with varus angulation Femur X-Ray 03/18/18 11:09 IMPRESSION: Acute right subcapital femoral neck fracture with varus angulation. Remainder the femur two views is otherwise unremarkable Head CT 03/18/18 11:09 IMPRESSION: No acute findings EVIDENCE OF ACUTE STROKE: NO. Knee X-Ray 03/18/18 11:09 IMPRESSION: NEGATIVE STUDY OF THE RIGHT KNEE. NO RADIOGRAPHIC EVIDENCE OF ACUTE INJURY. Pelvis X-Ray 03/20/18 14:44 IMPRESSION: SATISFACTORY POSTOPERATIVE PELVIS. Status: Imported from PACS Assessment & Plan - Diagnosis (1) Closed right hip fracture Qualifiers: Encounter type: initial encounter Qualified Code(s): S72.001A - Fracture of unspecified part of neck of right femur, initial encounter for closed fracture Is this a current diagnosis for this admission?: Yes Plan: Postop day 1 status post hemiarthroplasty with an uneventful postoperative course. Mobilize with physical therapy and weightbearing as tolerated basis. Anticipate the need for intermediate facility placement. - Time Time Spent with patient: 15-24 minutes Anticipated discharge: SNF Within: when bed available
[2018-03-21 06:58] LABS: ANION GAP 7 (5-19); BLOOD UREA NITROGEN 15 mg/dL (7-20); CARBON DIOXIDE 29 mmol/L (22-30); CHLORIDE 104 mmol/L (98-107); GLUCOSE 165 mg/dL (75-110); POTASSIUM 3.2 mmol/L (3.6-5.0); SODIUM 139.9 mmol/L (137-145)
[2018-03-21 11:19] LABS: HEMATOCRIT 39.3 % (36.0-47.0); MEAN CORPUSCULAR HEMOGLOBIN 32.1 pg (27.0-33.4); MEAN CORPUSCULAR HGB CONC 33.6 g/dL (32.0-36.0); MEAN CORPUSCULAR VOLUME 95 fl (80-97); PLATELET COUNT 119 10^3/uL (150-450); RED BLOOD COUNT 4.12 10^6/uL (3.72-5.28); RED CELL DISTRIBUTION WIDTH 13.7 % (11.5-14.0); WHITE BLOOD COUNT 14.9 10^3/uL (4.0-10.5)
--- NOTE | 2018-03-21 11:32 | RADIOLOGY REPORT (SQ) ---
EXAM DESCRIPTION: CHEST SINGLE VIEW COMPLETED DATE/TIME: 03/21/2018 11:23 am REASON FOR STUDY: assess for congestion COMPARISON: 04/10/2011. EXAM PARAMETERS: NUMBER OF VIEWS: One view. TECHNIQUE: Single frontal radiographic view of the chest acquired. RADIATION DOSE: NA LIMITATIONS: None. FINDINGS: LUNGS AND PLEURA: Mild bibasilar opacities. No significant effusion. No pneumothorax. N o discrete nodules or masses. MEDIASTINUM AND HILAR STRUCTURES: No masses. Contour normal. HEART AND VASCULAR STRUCTURES: Normal heart size. Tortuous thoracic aorta. No evidence of failure. BONES: No acute findings. HARDWARE: None in the chest. OTHER: No other significant finding. IMPRESSION: Mild bibasilar opacities possibly atelectasis or infectious. Normal cardiac silhouette size without evidence of failure. TECHNICAL DOCUMENTATION: JOB ID: [id number] [employer]- All Rights Reserved Reading location - IP/workstation name: [email or web address]
[2018-03-21 11:39] LABS: HEMOGLOBIN 13.2 g/dL (12.0-15.5)
[2018-03-21 13:12] LABS: ARTERIAL BLOOD BASE EXCESS 0.5 mmol/L; ARTERIAL BLOOD H2CO3 1.97 mmol/L (1.05-1.35); ARTERIAL BLOOD HCO3 29.2 mmol/L (20-24); ARTERIAL BLOOD O2 SATURATION 70.8 % (94-98); ARTERIAL BLOOD PCO2 65.6 mmHg (35-45); ARTERIAL BLOOD PH 7.27 (7.35-7.45); ARTERIAL BLOOD PO2 43.1 mmHg (80-100); ARTERIAL BLOOD TOTAL CO2 31.2 mmol/L (21-25)
[2018-03-21 13:14] LABS: ARTERIAL BLOOD FIO2 32%
[2018-03-21] MEDS ORDERED: POTASSIUM CHLORIDE 10 MEQ CAPSULE.ER PO ONE (13:30)
[2018-03-21] MEDS ORDERED: NALOXONE HCL INJ/PF 0.4 MG/1 ML SDV ONE ×2 (13:56→14:05)
[2018-03-21] MEDS ORDERED: NALOXONE HCL INJ/PF 0.4 MG/1 ML SDV IV ONE ×2 (13:59→14:05)
--- NOTE | 2018-03-21 14:45 | PDOC PROGRESS REPORT ---
Subjective Progress Note for:: 03/21/18 Subjective:: This is an 87 yr old female with a PMH of HTN, DM2, hyperlipidemia and COPD who was admited after a mechanical fall and was found to have sustained a right hip fracture. She underwent right proximal femoral hemiarthroplasty on 03/20. This morning, patient was reported to be more lethargic. She did get morphine overnight and long acting oxycodone as well. On encounter, she was easily abusable and was well oriented. She denies pain. Around 2 pm, paged by RN that p power was less responsive and was noted to have pinpoint pupils. Patient re evaluated on bedside. She was given 2 doses of Narcan with improvement in her mentation. ABG was also ordered and showed significant hypercarbia. She was placed on a BIPAP. Patient later became more responsive. No focal neurologic deficits. Reason For Visit: RIGHT FEMORAL NECK FRACTURE Physical Exam Vital Signs: Temp Pulse Resp BP Pulse Ox 97.3 F 66 17 95/52 L 100 03/21/18 11:00 03/21/18 11:00 03/21/18 14:23 03/21/18 11:00 03/21/18 14:23 Intake & Output 03/20/18 03/21/18 03/22/18 06:59 06:59 06:59 Intake Total 1650 7050 Output Total 1375 3830 Balance 275 3220 Weight 135 lb 5.821 oz 141 lb 8.588 oz General appearance: PRESENT: no acute distress, well-developed, well-nourished Head exam: PRESENT: atraumatic, normocephalic Eye exam: PRESENT: conjunctiva pink, EOMI, PERRLA. ABSENT: scleral icterus Ear exam: PRESENT: normal external ear exam Mouth exam: PRESENT: moist, tongue midline Neck exam: ABSENT: carotid bruit, JVD, lymphadenopathy, thyromegaly Respiratory exam: PRESENT: clear to auscultation twin. ABSENT: rales, rhonchi, wheezes Cardiovascular exam: PRESENT: RRR. ABSENT: diastolic murmur, rubs, systolic murmur Pulses: PRESENT: normal dorsalis pedis pul GI/Abdominal exam: PRESENT: normal bowel sounds, soft. ABSENT: distended, guarding, mass, organolmegaly, rebound, tenderness Rectal exam: PRESENT: deferred Neurological exam: PRESENT: altered Results Laboratory Results: 03/21/18 11:05 03/21/18 05:52 03/21/18 03/21/18 03/21/18 05:52 05:52 07:47 WBC Cancelled Cancelled RBC Cancelled Cancelled Hgb Cancelled Cancelled Hct Cancelled Cancelled MCV Cancelled Cancelled MCH Cancelled Cancelled MCHC Cancelled Cancelled RDW Cancelled Cancelled Plt Count Cancelled Cancelled Carbonic Acid HCO3/H2CO3 Ratio ABG pH ABG pCO2 ABG pO2 ABG HCO3 ABG O2 Saturation ABG Base Excess FiO2 Sodium 139.9 Potassium 3.2 L Chloride 104 Carbon Dioxide 29 Anion Gap 7 BUN 15 Creatinine 0.96 Est GFR ( Amer) > 60 Est GFR (Non-Af Amer) 55 L Glucose 165 H Calcium 8.0 L 03/21/18 03/21/18 03/21/18 11:05 12:00 12:25 WBC 14.9 H RBC 4.12 Hgb 13.2 D Hct 39.3 MCV 95 MCH 32.1 MCHC 33.6 RDW 13.7 Plt Count 119 L Carbonic Acid Cancelled 1.97 H HCO3/H2CO3 Ratio Cancelled 14:1 ABG pH Cancelled 7.27 L ABG pCO2 Cancelled 65.6 H ABG pO2 Cancelled 43.1 L ABG HCO3 Cancelled 29.2 H ABG O2 Saturation Cancelled 70.8 L ABG Base Excess Cancelled 0.5 FiO2 Cancelled 32% Sodium Potassium Chloride Carbon Dioxide Anion Gap BUN Creatinine Est GFR ( Amer) Est GFR (Non-Af Amer) Glucose Calcium Impressions: Hip/Pelvis X-Ray 03/18/18 00:00 IMPRESSION: Acute right subcapital femoral neck fracture with varus angulation Femur X-Ray 03/18/18 11:09 IMPRESSION: Acute right subcapital femoral neck fracture with varus angulation. Remainder the femur two views is otherwise unremarkable Head CT 03/18/18 11:09 IMPRESSION: No acute findings EVIDENCE OF ACUTE STROKE: NO. Knee X-Ray 03/18/18 11:09 IMPRESSION: NEGATIVE STUDY OF THE RIGHT KNEE. NO RADIOGRAPHIC EVIDENCE OF ACUTE INJURY. Pelvis X-Ray 03/20/18 14:44 IMPRESSION: SATISFACTORY POSTOPERATIVE PELVIS. Chest X-Ray 03/21/18 10:45 IMPRESSION: Mild bibasilar opacities possibly atelectasis or infectious. Normal cardiac silhouette size without evidence of failure. Assessment & Plan - Diagnosis (1) Acute hypercapnic respiratory failure Is this a current diagnosis for this admission?: Yes Plan: Likely secondary to hypoventilation from opiates. She is showing improvement with BIPAP and after 2 doses of Narcan. Continue to hold off on opiates. (2) Closed right hip fracture Qualifiers: Encounter type: initial encounter Qualified Code(s): S72.001A - Fracture of unspecified part of neck of right femur, initial encounter for closed fracture Is this a current diagnosis for this admission?: Yes Plan: S/P right proximal femoral hemiarthroplasty on 03/20. - Time Time Spent with patient: 35 or more minutes
--- NOTE | 2018-03-21 15:53 | RADIOLOGY REPORT (SQ) ---
EXAM DESCRIPTION: CT HEAD WITHOUT COMPLETED DATE/TIME: 03/21/2018 3:36 pm REASON FOR STUDY: unresponsive COMPARISON: 03/18/2018 TECHNIQUE: Axial images acquired through the brain without intravenous contrast. Images reviewed wi th bone, brain and subdural windows. Additional sagittal and coronal reconstructions were generated. Images stored on PACS. All CT scanners at this facility use dose modulation, iterative reconstruction, and/or weight based d osing when appropriate to reduce radiation dose to as low as reasonably achievable (ALARA). [facility]: Dose Right [facility]: CareDose [facility]: Dose Right [facility]: Teradose 4D [facility]: Smart MobilePro RADIATION DOSE: CT Rad equipment meets quality standard of care and radiation dose reduction techniq ues were employed. CTDIvol: 48.5 mGy. DLP: 855 mGy-cm. mGy. LIMITATIONS: None. FINDINGS: VENTRICLES: Normal size and contour. CEREBRUM: No masses. No hemorrhage. No midline shift. No evidence for acute infarction. Few scatte red areas of low density in the white matter most likely chronic small vessel ischemic changes. CEREBELLUM: No masses. No hemorrhage. No alteration of density. No evidence for acute infarction. EXTRAAXIAL SPACES: No fluid collections. No masses. ORBITS AND GLOBE: No intra- or extraconal masses. Normal contour of globe without masses. CALVARIUM: No fracture. PARANASAL SINUSES: No fluid or mucosal thickening. SOFT TISSUES: No mass or hematoma. OTHER: No other significant finding. IMPRESSION: No acute intracranial pathology. Small vessel white matter disease. EVIDENCE OF ACUTE STROKE: NO. COMMENT: Quality ID # [id number]: Final reports with documentation of one or more dose reduction techniques (e.g., Automated exposure control, adjustment of the mA and/or kV according to patient size, use of iterative reconstruction technique) TECHNICAL DOCUMENTATION: JOB ID: [id number] [employer]- All Rights Reserved Reading location - IP/workstation name: [email or web address]
[2018-03-21] MEDS: VALSARTAN 160 MG TABLET PO SCH ×2 (16:53→22:13)
[2018-03-21] MEDS: ASPIRIN 81 MG TABLET, ENT COATED PO SCH (16:54)
[2018-03-21] MEDS: METOPROLOL TARTRATE 50 MG TABLET PO SCH ×2 (16:55→22:13)
[2018-03-21] MEDS: OXYCODONE HCL SR 10 MG TABLET PO SCH (16:56)
[2018-03-21] MEDS: BUSPIRONE 5 MG PO SCH ×2 (16:56→22:16)
[2018-03-21] MEDS: PRENATAL VITAMIN W DHA CAPSULE PO SCH (16:56)
[2018-03-21] MEDS: TIMOLOL MALEATE 0.5% OPH SOLN 5 ML OU SCH ×2 (16:57→22:14)
[2018-03-21] MEDS: MULTIVITAMIN TABLET PO SCH (16:57)
[2018-03-21] MEDS: SENNOSIDES/DOCUSATE 8.6-50 MG 1 EACH TABLET PO SCH ×2 (16:57→22:05)
[2018-03-21] MEDS: CYANOCOBALAMIN (VITAMIN B-12) 1,000 MCG TABLET PO SCH (16:57)
[2018-03-21] MEDS: ALPRAZOLAM 0.5 MG TABLET PO SCH (16:58)
[2018-03-21] MEDS ORDERED: TRANEXAMIC ACID INJ/PF 1,000 MG/10 ML SDV IV ONE (17:00)
[2018-03-21 19:32] LABS: ARTERIAL BLOOD BASE EXCESS 1.2 mmol/L; ARTERIAL BLOOD FIO2 80%; ARTERIAL BLOOD H2CO3 1.67 mmol/L (1.05-1.35); ARTERIAL BLOOD HCO3 28.3 mmol/L (20-24); ARTERIAL BLOOD O2 SATURATION 99.6 % (94-98); ARTERIAL BLOOD PCO2 55.5 mmHg (35-45); ARTERIAL BLOOD PH 7.33 (7.35-7.45); ARTERIAL BLOOD PO2 280.9 mmHg (80-100)
[2018-03-21] MEDS: POTASSI CL 20 MEQ/50 ML RIDER 20 MEQ/50 ML RTUPB IV SCH ×2 (20:34→22:40)
[2018-03-21] MEDS: ATORVASTATIN CALCIUM 40 MG TABLET PO SCH (22:04)
[2018-03-21] MEDS: MELATONIN 3 MG TABLET PO SCH (22:14)
[2018-03-21] MEDS: LATANOPROST 0.005% OPH SOLN 2.5 ML OU SCH (22:16)
[2018-03-21] MEDS ORDERED: METOPROLOL TARTRATE 25 MG TABLET PO ONE (23:59)
[2018-03-22] MEDS: POTASSI CL 20 MEQ/50 ML RIDER 20 MEQ/50 ML RTUPB IV SCH (01:48)
[2018-03-22] MEDS: LANSOPRAZOLE 30 MG TAB.RAP.DR PO SCH (05:36)
[2018-03-22] MEDS: IBUPROFEN 800 MG in NORMAL SALINE 250 ML IV SCH ×2 (05:38→14:07)
[2018-03-22 05:55] LABS: ARTERIAL BLOOD BASE EXCESS -1.6 mmol/L; ARTERIAL BLOOD H2CO3 1.64 mmol/L (1.05-1.35); ARTERIAL BLOOD HCO3 25.8 mmol/L (20-24); ARTERIAL BLOOD O2 SATURATION 99.6 % (94-98); ARTERIAL BLOOD PCO2 54.4 mmHg (35-45); ARTERIAL BLOOD PH 7.29 (7.35-7.45); ARTERIAL BLOOD TOTAL CO2 27.5 mmol/L (21-25)
[2018-03-22 05:56] LABS: ARTERIAL BLOOD FIO2 70%
[2018-03-22 06:01] LABS: HEMATOCRIT 36.5 % (36.0-47.0); HEMOGLOBIN 12.2 g/dL (12.0-15.5); MEAN CORPUSCULAR HEMOGLOBIN 32.2 pg (27.0-33.4); MEAN CORPUSCULAR HGB CONC 33.3 g/dL (32.0-36.0); MEAN CORPUSCULAR VOLUME 97 fl (80-97); PLATELET COUNT 104 10^3/uL (150-450); RED BLOOD COUNT 3.77 10^6/uL (3.72-5.28); WHITE BLOOD COUNT 12.5 10^3/uL (4.0-10.5)
[2018-03-22] MEDS: VALSARTAN 160 MG TABLET PO SCH ×2 (10:43→22:02)
[2018-03-22] MEDS: SENNOSIDES/DOCUSATE 8.6-50 MG 1 EACH TABLET PO SCH ×2 (10:44→17:52)
[2018-03-22] MEDS: PRENATAL VITAMIN W DHA CAPSULE PO SCH (10:44)
[2018-03-22] MEDS: MULTIVITAMIN TABLET PO SCH (10:44)
[2018-03-22] MEDS: TIMOLOL MALEATE 0.5% OPH SOLN 5 ML OU SCH ×2 (10:45→22:08)
[2018-03-22] MEDS: METOPROLOL TARTRATE 50 MG TABLET PO SCH ×2 (10:45→22:02)
[2018-03-22] MEDS: ASPIRIN 81 MG TABLET, ENT COATED PO SCH (10:45)
[2018-03-22] MEDS: CYANOCOBALAMIN (VITAMIN B-12) 1,000 MCG TABLET PO SCH (10:49)
[2018-03-22] MEDS: BUSPIRONE 5 MG PO SCH ×2 (10:49→22:06)
[2018-03-22] MEDS: HEPARIN SOD (PORCINE) 5,000 UNIT/ML 1 ML SYRINGE SUBCUT SCH ×3 (10:53→21:54)
--- NOTE | 2018-03-22 14:22 | PDOC PROGRESS REPORT ---
Subjective Progress Note for:: 03/22/18 Subjective:: This is an 87 yr old female with a PMH of HTN, DM2, hyperlipidemia and COPD who was admited after a mechanical fall and was found to have sustained a right hip fracture. She underwent right proximal femoral hemiarthroplasty on 03/20. 03/21: Patient was reported to be more lethargic. She did get morphine overnight and long acting oxycodone as well. On encounter, she was easily arousable and was well oriented. She denies pain. Around 2 pm, paged by RN that patient was less responsive and was noted to have pinpoint pupils. Patient re evaluated on bedside. She was given 2 doses of Narcan with improvement in her mentation. ABG was also ordered and showed significant hypercarbia. She was placed on a BIPAP. Patient later became more responsive. No focal neurologic deficits. CT head negative. All opiates have been held. 03/22: No acute event overnight. She was taken off BIPAP around 3 am with no issues. She is fully alert and coherent and is back to her baseline mentation. She says she cannot recall what happened yesterday aside from being mostly asleep. Denies pain. Reason For Visit: RIGHT FEMORAL NECK FRACTURE Physical Exam Vital Signs: Temp Pulse Resp BP Pulse Ox 99.4 F 75 16 112/45 L 99 03/22/18 12:00 03/22/18 12:00 03/22/18 12:00 03/22/18 12:00 03/22/18 12:00 Intake & Output 03/21/18 03/22/18 03/23/18 06:59 06:59 06:59 Intake Total 7050 690 1300 Output Total 3830 300 Balance 3220 390 1300 Weight 141 lb 8.588 oz 142 lb 13.753 oz General appearance: PRESENT: no acute distress, well-developed, well-nourished Head exam: PRESENT: atraumatic, normocephalic Eye exam: PRESENT: conjunctiva pink, EOMI, PERRLA. ABSENT: scleral icterus Ear exam: PRESENT: normal external ear exam Neck exam: ABSENT: carotid bruit, JVD, lymphadenopathy, thyromegaly Respiratory exam: PRESENT: clear to auscultation twin. ABSENT: rales, rhonchi, wheezes Cardiovascular exam: PRESENT: RRR. ABSENT: diastolic murmur, rubs, systolic murmur Pulses: PRESENT: normal dorsalis pedis pul GI/Abdominal exam: PRESENT: normal bowel sounds, soft. ABSENT: distended, guarding, mass, organolmegaly, rebound, tenderness Rectal exam: PRESENT: deferred Neurological exam: PRESENT: alert, awake, oriented to person, oriented to place, oriented to time, oriented to situation, CN II-XII grossly intact. ABSENT: motor sensory deficit Results Laboratory Results: 03/22/18 05:55 03/21/18 17:45 03/21/18 03/21/18 03/22/18 17:45 18:58 05:25 WBC RBC Hgb Hct MCV MCH MCHC RDW Plt Count Carbonic Acid 1.67 H 1.64 H HCO3/H2CO3 Ratio 16:1 15:1 ABG pH 7.33 L 7.29 L ABG pCO2 55.5 H 54.4 H ABG pO2 280.9 H 279.0 H ABG HCO3 28.3 H 25.8 H ABG O2 Saturation 99.6 H 99.6 H ABG Base Excess 1.2 -1.6 FiO2 80% 70% Potassium 4.0 Magnesium 1.8 03/22/18 05:55 WBC 12.5 H RBC 3.77 Hgb 12.2 Hct 36.5 MCV 97 MCH 32.2 MCHC 33.3 RDW 14.0 Plt Count 104 L Carbonic Acid HCO3/H2CO3 Ratio ABG pH ABG pCO2 ABG pO2 ABG HCO3 ABG O2 Saturation ABG Base Excess FiO2 Potassium Magnesium Impressions: Hip/Pelvis X-Ray 03/18/18 00:00 IMPRESSION: Acute right subcapital femoral neck fracture with varus angulation Femur X-Ray 03/18/18 11:09 IMPRESSION: Acute right subcapital femoral neck fracture with varus angulation. Remainder the femur two views is otherwise unremarkable Knee X-Ray 03/18/18 11:09 IMPRESSION: NEGATIVE STUDY OF THE RIGHT KNEE. NO RADIOGRAPHIC EVIDENCE OF ACUTE INJURY. Pelvis X-Ray 03/20/18 14:44 IMPRESSION: SATISFACTORY POSTOPERATIVE PELVIS. Chest X-Ray 03/21/18 10:45 IMPRESSION: Mild bibasilar opacities possibly atelectasis or infectious. Normal cardiac silhouette size without evidence of failure. Head CT 03/21/18 14:09 IMPRESSION: No acute intracranial pathology. Small vessel white matter disease. EVIDENCE OF ACUTE STROKE: NO. Assessment & Plan - Diagnosis (1) Acute hypercapnic respiratory failure Is this a current diagnosis for this admission?: Yes Plan: Likely secondary to hypoventilation from opiates. She had significant improvement with BIPAP and after 2 doses of Narcan. All opiates have been held. (2) Closed right hip fracture Qualifiers: Encounter type: initial encounter Qualified Code(s): S72.001A - Fracture of unspecified part of neck of right femur, initial encounter for closed fracture Is this a current diagnosis for this admission?: Yes Plan: S/P right proximal femoral hemiarthroplasty on 03/20. (3) Hypokalemia Is this a current diagnosis for this admission?: Yes Plan: Resolved. (4) Hypomagnesemia Is this a current diagnosis for this admission?: Yes Plan: Resolved. - Time Time Spent with patient: 25-34 minutes
--- NOTE | 2018-03-22 18:55 | EKG REPORT ---
SEVERITY:- ABNORMAL ECG - SINUS RHYTHM INCOMPLETE LEFT BUNDLE BRANCH BLOCK LVH WITH SECONDARY REPOLARIZATION ABNORMALITY PROBABLE INFERIOR INFARCT, OLD ANTERIOR INFARCT, AGE INDETERMINATE : Confirmed by: Silas Davies MD 22-Mar-2018 18:55:05
[2018-03-22] MEDS: MELATONIN 3 MG TABLET PO SCH (22:03)
[2018-03-22] MEDS: ATORVASTATIN CALCIUM 40 MG TABLET PO SCH (22:03)
[2018-03-22] MEDS: LATANOPROST 0.005% OPH SOLN 2.5 ML OU SCH (22:15)
[2018-03-23] MEDS: LANSOPRAZOLE 30 MG TAB.RAP.DR PO SCH (05:24)
[2018-03-23 06:37] LABS: HEMATOCRIT 40.8 % (36.0-47.0); HEMOGLOBIN 13.6 g/dL (12.0-15.5); MEAN CORPUSCULAR HEMOGLOBIN 32.1 pg (27.0-33.4); MEAN CORPUSCULAR HGB CONC 33.4 g/dL (32.0-36.0); MEAN CORPUSCULAR VOLUME 96 fl (80-97); PLATELET COUNT 144 10^3/uL (150-450); RED BLOOD COUNT 4.25 10^6/uL (3.72-5.28); RED CELL DISTRIBUTION WIDTH 13.6 % (11.5-14.0); WHITE BLOOD COUNT 15.1 10^3/uL (4.0-10.5)
--- NOTE | 2018-03-23 06:44 | PDOC PROGRESS REPORT ---
Subjective Progress Note for:: 03/23/18 Reason For Visit: RIGHT FEMORAL NECK FRACTURE 87-year-old white female postop day 3 status post right proximal femoral hemiarthroplasty for femoral neck fracture. Postoperative course has been notable for oversedation and subsequent respiratory depression. Patient is alert and oriented, appropriate and complaining of pain this morning Physical Exam Vital Signs: Temp Pulse Resp BP Pulse Ox 36.9 C 71 17 155/68 H 97 03/23/18 04:00 03/23/18 04:00 03/23/18 04:00 03/23/18 04:00 03/23/18 04:00 Intake & Output 03/21/18 03/22/18 03/23/18 06:59 06:59 06:59 Intake Total 7050 690 3150 Output Total 3830 300 300 Balance 3220 390 2850 Weight 64.2 kg 64.8 kg 64.8 kg General appearance: PRESENT: mild distress Head exam: PRESENT: normocephalic Respiratory exam: PRESENT: unlabored Cardiovascular exam: PRESENT: RRR Pulses: PRESENT: +1 pedal pulses bilateral Vascular exam: PRESENT: normal capillary refill GI/Abdominal exam: PRESENT: soft Rectal exam: PRESENT: deferred Musculoskeletal exam: PRESENT: other - Right hip dressing is clean dry and intact. Leg lengths are equal. Distal neurovascular examination is intact. Neurological exam: PRESENT: alert, awake, oriented to person, oriented to place, oriented to time, oriented to situation. ABSENT: motor sensory deficit Psychiatric exam: PRESENT: appropriate affect Skin exam: PRESENT: dry, intact, warm. ABSENT: cyanosis, rash Results Laboratory Results: 03/23/18 06:27 03/21/18 17:45 03/23/18 06:27 WBC 15.1 H RBC 4.25 Hgb 13.6 Hct 40.8 MCV 96 MCH 32.1 MCHC 33.4 RDW 13.6 Plt Count 144 L Impressions: Hip/Pelvis X-Ray 03/18/18 00:00 IMPRESSION: Acute right subcapital femoral neck fracture with varus angulation Femur X-Ray 03/18/18 11:09 IMPRESSION: Acute right subcapital femoral neck fracture with varus angulation. Remainder the femur two views is otherwise unremarkable Knee X-Ray 03/18/18 11:09 IMPRESSION: NEGATIVE STUDY OF THE RIGHT KNEE. NO RADIOGRAPHIC EVIDENCE OF ACUTE INJURY. Pelvis X-Ray 03/20/18 14:44 IMPRESSION: SATISFACTORY POSTOPERATIVE PELVIS. Chest X-Ray 03/21/18 10:45 IMPRESSION: Mild bibasilar opacities possibly atelectasis or infectious. Normal cardiac silhouette size without evidence of failure. Head CT 03/21/18 14:09 IMPRESSION: No acute intracranial pathology. Small vessel white matter disease. EVIDENCE OF ACUTE STROKE: NO. Status: Imported from PACS Assessment & Plan - Diagnosis (1) Closed right hip fracture Qualifiers: Encounter type: initial encounter Qualified Code(s): S72.001A - Fracture of unspecified part of neck of right femur, initial encounter for closed fracture Is this a current diagnosis for this admission?: Yes Plan: patient was slow progress being mobilized with physical therapy. Mental status has cleared. Anticipate the need for detention facility placement when bed available. - Time Time Spent with patient: 15-24 minutes Anticipated discharge: SNF Within: when bed available
[2018-03-23] MEDS ORDERED: HALOPERIDOL LACTATE INJ 5 MG/1 ML VIAL IV ONE (11:00)
[2018-03-23] MEDS ORDERED: ALPRAZOLAM 0.5 MG TABLET PO PRN (11:24)
[2018-03-23] MEDS ORDERED: HALOPERIDOL LACTATE INJ 5 MG/1 ML VIAL IV PRN (14:10)
[2018-03-23] MEDS: VALSARTAN 160 MG TABLET PO SCH ×2 (15:03→21:19)
[2018-03-23] MEDS: ASPIRIN 81 MG TABLET, ENT COATED PO SCH (15:04)
[2018-03-23] MEDS: METOPROLOL TARTRATE 50 MG TABLET PO SCH ×2 (15:05→21:23)
[2018-03-23] MEDS: PRENATAL VITAMIN W DHA CAPSULE PO SCH (15:05)
[2018-03-23] MEDS: HEPARIN SOD (PORCINE) 5,000 UNIT/ML 1 ML SYRINGE SUBCUT SCH ×2 (15:05→21:37)
[2018-03-23] MEDS: MULTIVITAMIN TABLET PO SCH (15:06)
[2018-03-23] MEDS: TIMOLOL MALEATE 0.5% OPH SOLN 5 ML OU SCH ×2 (15:06→21:48)
[2018-03-23] MEDS: CYANOCOBALAMIN (VITAMIN B-12) 1,000 MCG TABLET PO SCH (15:06)
[2018-03-23] MEDS: BUSPIRONE 5 MG PO SCH ×2 (15:06→21:56)
[2018-03-23] MEDS: SENNOSIDES/DOCUSATE 8.6-50 MG 1 EACH TABLET PO SCH ×2 (15:06→18:35)
--- NOTE | 2018-03-23 15:45 | PDOC PROGRESS REPORT ---
Subjective Progress Note for:: 03/23/18 Subjective:: This is an 87 yr old female with a PMH of HTN, DM2, hyperlipidemia and COPD who was admited after a mechanical fall and was found to have sustained a right hip fracture. She underwent right proximal femoral hemiarthroplasty on 03/20. 03/21: Patient was reported to be more lethargic. She did get morphine overnight and long acting oxycodone as well. On encounter, she was easily arousable and was well oriented. She denies pain. Around 2 pm, paged by RN that patient was less responsive and was noted to have pinpoint pupils. Patient re evaluated on bedside. She was given 2 doses of Narcan with improvement in her mentation. ABG was also ordered and showed significant hypercarbia. She was placed on a BIPAP. Patient later became more responsive. No focal neurologic deficits. CT head negative. All opiates have been held. 03/22: No acute event overnight. She was taken off BIPAP around 3 am with no issues. She is fully alert and coherent and is back to her baseline mentation. She says she cannot recall what happened yesterday aside from being mostly asleep. Denies pain. 03/23: Patient was reportedly agitated and combative this morning. Upon bedside evaluation, she appears irritable and asked me "who are you?". She is able to recognize her son and is able to tell me her name and that it's 2018. She appears to be having acute delirium. No focal neurologic deficits. Reason For Visit: RIGHT FEMORAL NECK FRACTURE Physical Exam Vital Signs: Temp Pulse Resp BP Pulse Ox 98.9 F 82 15 153/77 H 95 03/23/18 11:33 03/23/18 11:33 03/23/18 11:33 03/23/18 11:33 03/23/18 11:33 Intake & Output 03/22/18 03/23/18 03/24/18 06:59 06:59 06:59 Intake Total 690 3150 Output Total 300 300 Balance 390 2850 Weight 142 lb 13.753 oz 142 lb 13.753 oz General appearance: PRESENT: no acute distress, well-developed, well-nourished Head exam: PRESENT: atraumatic, normocephalic Eye exam: PRESENT: conjunctiva pink, EOMI, PERRLA. ABSENT: scleral icterus Ear exam: PRESENT: normal external ear exam Mouth exam: PRESENT: moist, tongue midline Neck exam: ABSENT: carotid bruit, JVD, lymphadenopathy, thyromegaly Respiratory exam: PRESENT: clear to auscultation twin. ABSENT: rales, rhonchi, wheezes Cardiovascular exam: PRESENT: RRR. ABSENT: diastolic murmur, rubs, systolic murmur GI/Abdominal exam: PRESENT: normal bowel sounds, soft. ABSENT: distended, guarding, mass, organolmegaly, rebound, tenderness Rectal exam: PRESENT: deferred Neurological exam: PRESENT: altered, oriented to person, oriented to place, CN II-XII grossly intact. ABSENT: motor sensory deficit Results Laboratory Results: 03/23/18 06:27 03/21/18 17:45 03/23/18 06:27 WBC 15.1 H RBC 4.25 Hgb 13.6 Hct 40.8 MCV 96 MCH 32.1 MCHC 33.4 RDW 13.6 Plt Count 144 L Impressions: Hip/Pelvis X-Ray 03/18/18 00:00 IMPRESSION: Acute right subcapital femoral neck fracture with varus angulation Femur X-Ray 03/18/18 11:09 IMPRESSION: Acute right subcapital femoral neck fracture with varus angulation. Remainder the femur two views is otherwise unremarkable Knee X-Ray 03/18/18 11:09 IMPRESSION: NEGATIVE STUDY OF THE RIGHT KNEE. NO RADIOGRAPHIC EVIDENCE OF ACUTE INJURY. Pelvis X-Ray 03/20/18 14:44 IMPRESSION: SATISFACTORY POSTOPERATIVE PELVIS. Chest X-Ray 03/21/18 10:45 IMPRESSION: Mild bibasilar opacities possibly atelectasis or infectious. Normal cardiac silhouette size without evidence of failure. Head CT 03/21/18 14:09 IMPRESSION: No acute intracranial pathology. Small vessel white matter disease. EVIDENCE OF ACUTE STROKE: NO. Assessment & Plan - Diagnosis (1) Acute delirium Is this a current diagnosis for this admission?: Yes Plan: Multifactorial. Possible benzodiazepine withdrawal also contributory. She has been on Xanax bid for years. This was held due to her acute respiratory failure. Will give patient haldol for agitation. Resume lower dose of Xanax. Monitor respiratory status closely. Will proceed with transfer to SNF tomorrow if mentation improves. (2) Acute hypercapnic respiratory failure Is this a current diagnosis for this admission?: Yes Plan: Resolved. Likely secondary to hypoventilation from opiates. She had significant improvement with BIPAP and after 2 doses of Narcan. All opiates have been held. (3) Closed right hip fracture Qualifiers: Encounter type: initial encounter Qualified Code(s): S72.001A - Fracture of unspecified part of neck of right femur, initial encounter for closed fracture Is this a current diagnosis for this admission?: Yes Plan: S/P right proximal femoral hemiarthroplasty on 03/20. (4) Hypokalemia Is this a current diagnosis for this admission?: Yes Plan: Resolved. (5) Hypomagnesemia Is this a current diagnosis for this admission?: Yes Plan: Resolved. - Time Time Spent with patient: 25-34 minutes
[2018-03-23] MEDS: ALPRAZOLAM 0.5 MG TABLET PO SCH (21:24)
[2018-03-23] MEDS: LATANOPROST 0.005% OPH SOLN 2.5 ML OU SCH (21:49)
[2018-03-23] MEDS: ATORVASTATIN CALCIUM 40 MG TABLET PO SCH (21:52)
[2018-03-23] MEDS: MELATONIN 3 MG TABLET PO SCH (21:53)
[2018-03-24] MEDS ORDERED: NA PHOS,M-B/NA PHOS,DI-BA (ADULT) 133 ML ENEMA PR ONE (05:00)
[2018-03-24] MEDS: LANSOPRAZOLE 30 MG TAB.RAP.DR PO SCH (05:22)
--- NOTE | 2018-03-24 09:02 | RADIOLOGY REPORT (SQ) ---
EXAM DESCRIPTION: ABDOMEN 2 VIEWS COMPLETED DATE/TIME: 03/24/2018 8:53 am REASON FOR STUDY: rigid abdomen COMPARISON: None. NUMBER OF VIEWS: Two views. TECHNIQUE: Supine and erect/decubitus radiographic images of the abdomen acquired. LIMITATIONS: None. FINDINGS: FREE AIR: None. No abnormal gas collections. LUNG BASES: Clear. BOWEL GAS PATTERN: Gas pattern is nonobstructive. There is moderate amount of stool throughout the c olon. CALCIFICATIONS: No suspicious calcifications. SOFT TISSUES: No gross mass or suggestion of organomegaly. HARDWARE: None in the abdomen. BONES: No acute fracture. No worrisome bone lesions. OTHER: There are postsurgical changes in the right hip. IMPRESSION: Probable constipation. No evidence of obstruction. TECHNICAL DOCUMENTATION: JOB ID: [id number] [employer]- All Rights Reserved Reading location - IP/workstation name: [email or web address]
[2018-03-24] MEDS: ASPIRIN 81 MG TABLET, ENT COATED PO SCH (10:49)
[2018-03-24] MEDS: VALSARTAN 160 MG TABLET PO SCH ×2 (10:49→22:01)
[2018-03-24] MEDS: METOPROLOL TARTRATE 50 MG TABLET PO SCH ×2 (10:49→22:02)
[2018-03-24] MEDS: ALPRAZOLAM 0.5 MG TABLET PO SCH ×2 (10:50→22:01)
[2018-03-24] MEDS: CYANOCOBALAMIN (VITAMIN B-12) 1,000 MCG TABLET PO SCH (10:55)
[2018-03-24] MEDS: MULTIVITAMIN TABLET PO SCH (10:55)
[2018-03-24] MEDS: TIMOLOL MALEATE 0.5% OPH SOLN 5 ML OU SCH ×2 (10:56→22:03)
[2018-03-24] MEDS: SENNOSIDES/DOCUSATE 8.6-50 MG 1 EACH TABLET PO SCH ×2 (10:56→17:39)
[2018-03-24] MEDS: BUSPIRONE 5 MG PO SCH ×2 (10:56→22:02)
[2018-03-24] MEDS: HEPARIN SOD (PORCINE) 5,000 UNIT/ML 1 ML SYRINGE SUBCUT SCH ×2 (10:56→22:02)
[2018-03-24] MEDS: PRENATAL VITAMIN W DHA CAPSULE PO SCH (10:56)
[2018-03-24 12:49] LABS: APPEARANCE,URINE CLOUDY; BILIRUBIN,URINE NEGATIVE (NEGATIVE); COLOR,URINE YELLOW; GLUCOSE, URINE NEGATIVE (NEGATIVE); KETONES,URINE TRACE mg/dL (NEGATIVE); LEUKOCYTE ESTERASE,URINE LARGE (NEGATIVE); NITRITE,URINE NEGATIVE (NEGATIVE); PROTEIN,URINE 30 mg/dL (NEGATIVE); URINE SPECIFIC GRAVITY 1.012; UROBILINOGEN,URINE NEGATIVE mg/dL (<2.0)
--- NOTE | 2018-03-24 13:50 | RADIOLOGY REPORT (SQ) ---
EXAM DESCRIPTION: CHEST SINGLE VIEW COMPLETED DATE/TIME: 03/24/2018 1:39 pm REASON FOR STUDY: SHORTNESS OF BREATH COMPARISON: 03/21/2018 EXAM PARAMETERS: NUMBER OF VIEWS: One view. TECHNIQUE: Single frontal radiographic view of the chest acquired. RADIATION DOSE: NA LIMITATIONS: None. FINDINGS: LUNGS AND PLEURA: The patient is slightly rotated toward the right. This results in fulln ess along the right mediastinal border which axillae represents the manubrium. Lung ruano are now c lear. Basilar atelectasis has resolved. MEDIASTINUM AND HILAR STRUCTURES: No masses. Contour normal. HEART AND VASCULAR STRUCTURES: Heart normal in size. Normal vasculature. BONES: No acute findings. HARDWARE: None in the chest. OTHER: No other significant finding. IMPRESSION: NO ACUTE RADIOGRAPHIC FINDING IN THE CHEST. TECHNICAL DOCUMENTATION: JOB ID: [id number] [employer]- All Rights Reserved Reading location - IP/workstation name: [email or web address]
[2018-03-24] MEDS ORDERED: POLYETHYLENE GLYCOL 3350 POWDER 17 GM/1 PACKET PO PRN (16:31)
--- NOTE | 2018-03-24 16:39 | PDOC PROGRESS REPORT ---
Subjective Progress Note for:: 03/24/18 Subjective:: This is an 87 yr old female with a PMH of HTN, DM2, hyperlipidemia and COPD who was admited after a mechanical fall and was found to have sustained a right hip fracture. She underwent right proximal femoral hemiarthroplasty on 03/20. 03/21: Patient was reported to be more lethargic. She did get morphine overnight and long acting oxycodone as well. On encounter, she was easily arousable and was well oriented. She denies pain. Around 2 pm, paged by RN that patient was less responsive and was noted to have pinpoint pupils. Patient re evaluated on bedside. She was given 2 doses of Narcan with improvement in her mentation. ABG was also ordered and showed significant hypercarbia. She was placed on a BIPAP. Patient later became more responsive. No focal neurologic deficits. CT head negative. All opiates have been held. 03/22: No acute event overnight. She was taken off BIPAP around 3 am with no issues. She is fully alert and coherent and is back to her baseline mentation. She says she cannot recall what happened yesterday aside from being mostly asleep. Denies pain. 03/23: Patient was reportedly agitated and combative this morning. Upon bedside evaluation, she appears irritable and asked me "who are you?". She is able to recognize her son and is able to tell me her name and that it's 2018. She appears to be having acute delirium. No focal neurologic deficits. 03/24: Patient had mild agitation last night but this improved this morning. She did have constipation and required an enema last night. She had a BM after that. This morning, she appeared more calm and is better oriented. She is able to remember me now. Reason For Visit: RIGHT FEMORAL NECK FRACTURE Physical Exam Vital Signs: Temp Pulse Resp BP Pulse Ox 99.3 F 84 30 H 126/67 H 100 03/24/18 12:00 03/24/18 14:00 03/24/18 12:00 03/24/18 12:03/24/18 12:00 Intake & Output 03/23/18 03/24/18 03/25/18 06:59 06:59 06:59 Intake Total 3150 438 220 Output Total 300 270 Balance 2850 438 -50 Weight 142 lb 13.753 oz 143 lb 4.807 oz General appearance: PRESENT: no acute distress, well-developed, well-nourished Head exam: PRESENT: atraumatic, normocephalic Eye exam: PRESENT: conjunctiva pink, EOMI, PERRLA. ABSENT: scleral icterus Ear exam: PRESENT: normal external ear exam Mouth exam: PRESENT: moist, tongue midline Neck exam: ABSENT: carotid bruit, JVD, lymphadenopathy, thyromegaly Respiratory exam: PRESENT: clear to auscultation twin. ABSENT: rales, rhonchi, wheezes Cardiovascular exam: PRESENT: RRR. ABSENT: diastolic murmur, rubs, systolic murmur Pulses: PRESENT: normal dorsalis pedis pul GI/Abdominal exam: PRESENT: normal bowel sounds, soft. ABSENT: distended, guarding, mass, organolmegaly, rebound, tenderness Rectal exam: PRESENT: deferred Extremities exam: PRESENT: full ROM. ABSENT: calf tenderness, clubbing, pedal edema Neurological exam: PRESENT: alert, awake, oriented to person, oriented to place, oriented to time, CN II-XII grossly intact. ABSENT: motor sensory deficit Results Laboratory Results: 03/23/18 06:27 03/21/18 17:45 03/24/18 12:15 Urine Color YELLOW Urine Appearance CLOUDY Urine pH 5.0 Ur Specific [place] 1.012 Urine Protein 30 H Urine Glucose (UA) NEGATIVE Urine Ketones TRACE H Urine Blood MODERATE H Urine Nitrite NEGATIVE Ur Leukocyte Esterase LARGE H Urine WBC (Auto) 130 Urine RBC (Auto) 9 Impressions: Hip/Pelvis X-Ray 03/18/18 00:00 IMPRESSION: Acute right subcapital femoral neck fracture with varus angulation Femur X-Ray 03/18/18 11:09 IMPRESSION: Acute right subcapital femoral neck fracture with varus angulation. Remainder the femur two views is otherwise unremarkable Knee X-Ray 03/18/18 11:09 IMPRESSION: NEGATIVE STUDY OF THE RIGHT KNEE. NO RADIOGRAPHIC EVIDENCE OF ACUTE INJURY. Pelvis X-Ray 03/20/18 14:44 IMPRESSION: SATISFACTORY POSTOPERATIVE PELVIS. Head CT 03/21/18 14:09 IMPRESSION: No acute intracranial pathology. Small vessel white matter disease. EVIDENCE OF ACUTE STROKE: NO. Abdomen X-Ray 03/24/18 00:00 IMPRESSION: Probable constipation. No evidence of obstruction. Chest X-Ray 03/24/18 00:00 IMPRESSION: NO ACUTE RADIOGRAPHIC FINDING IN THE CHEST. Assessment & Plan - Diagnosis (1) Acute delirium Is this a current diagnosis for this admission?: Yes Plan: Improved. Multifactorial. Possible benzodiazepine withdrawal also contributory. She has been on Xanax bid for years. This was held due to her acute respiratory failure. On haldol prn for agitation. Resumed lower dose of Xanax. Monitor respiratory status closely. (2) Acute hypercapnic respiratory failure Is this a current diagnosis for this admission?: Yes Plan: Resolved. Likely secondary to hypoventilation from opiates. She had significant improvement with BIPAP and after 2 doses of Narcan. All opiates have been held. (3) Closed right hip fracture Qualifiers: Encounter type: initial encounter Qualified Code(s): S72.001A - Fracture of unspecified part of neck of right femur, initial encounter for closed fracture Is this a current diagnosis for this admission?: Yes Plan: S/P right proximal femoral hemiarthroplasty on 03/20. (4) Hypokalemia Is this a current diagnosis for this admission?: Yes Plan: Resolved. (5) Hypomagnesemia Is this a current diagnosis for this admission?: Yes Plan: Resolved. (6) UTI (urinary tract infection) Is this a current diagnosis for this admission?: Yes Plan: Start PO Ciprofloxacin. - Time Time Spent with patient: 25-34 minutes
[2018-03-24 17:15] LABS: HEMATOCRIT 39.1 % (36.0-47.0); HEMOGLOBIN 13.3 g/dL (12.0-15.5); MEAN CORPUSCULAR HEMOGLOBIN 31.9 pg (27.0-33.4); MEAN CORPUSCULAR HGB CONC 33.9 g/dL (32.0-36.0); MEAN CORPUSCULAR VOLUME 94 fl (80-97); PLATELET COUNT 213 10^3/uL (150-450); RED BLOOD COUNT 4.16 10^6/uL (3.72-5.28); RED CELL DISTRIBUTION WIDTH 13.5 % (11.5-14.0); WHITE BLOOD COUNT 22.4 10^3/uL (4.0-10.5)
[2018-03-24 17:35] LABS: ANION GAP 8 (5-19); BLOOD UREA NITROGEN 43 mg/dL (7-20); CALCIUM 8.2 mg/dL (8.4-10.2); CARBON DIOXIDE 27 mmol/L (22-30); CHLORIDE 107 mmol/L (98-107); GLUCOSE 239 mg/dL (75-110); POTASSIUM 3.3 mmol/L (3.6-5.0); SODIUM 141.7 mmol/L (137-145)
[2018-03-24 17:48] LABS: ABSOLUTE LYMPHOCYTES# (MANUAL) 2.7 10^3/uL (0.5-4.7); ABSOLUTE MONOCYTES # (MANUAL) 0.9 10^3/uL (0.1-1.4); ABSOLUTE NEUTROPHILS# (MANUAL) 18.8 10^3/uL (1.7-8.2); BASOPHILS % (MANUAL) 0 % (0-2); EOSINOPHILS % (MANUAL) 0 % (0-6); LYMPHOCYTES % (MANUAL) 12 % (13-45); MONOCYTES % (MANUAL) 4 % (3-13); SEGMENTED NEUTROPHILS % (MAN) 84 % (42-78); TOTAL CELLS COUNTED 100
[2018-03-24 17:49] LABS: PLATELET COMMENT ADEQUATE; PLATELET LARGE PRESENT; POLYCHROMASIA SLIGHT; RBC MORPHOLOGY COMMENT NORMO-CYTIC/CHROMIC; TOXIC VACUOLATION PRESENT
[2018-03-24] MEDS: CIPROFLOXACIN HCL 500 MG TABLET PO SCH (18:16)
[2018-03-24] MEDS: LATANOPROST 0.005% OPH SOLN 2.5 ML OU SCH (22:02)
[2018-03-24] MEDS: ATORVASTATIN CALCIUM 40 MG TABLET PO SCH (22:02)
[2018-03-24] MEDS: MELATONIN 3 MG TABLET PO SCH (22:02)
[2018-03-25] MEDS: CIPROFLOXACIN HCL 500 MG TABLET PO SCH ×2 (05:52→17:46)
[2018-03-25] MEDS: LANSOPRAZOLE 30 MG TAB.RAP.DR PO SCH (05:52)
--- NOTE | 2018-03-25 07:15 | PDOC PROGRESS REPORT ---
Subjective Reason For Visit: RIGHT FEMORAL NECK FRACTURE 87-year-old white female status post hemiarthroplasty and subsequent mental status changes. Patient has a leukocytosis to 22,000 and a positive UA suggesting underlying urinary tract infection. This may have been at least in part responsible for the patient's mental status changes. Physical Exam Vital Signs: Temp Pulse Resp BP Pulse Ox 37.2 C 85 17 108/53 L 94 03/24/18 23:56 03/25/18 02:00 03/24/18 19:00 03/24/18 23:56 03/24/18 23:56 Intake & Output 03/24/18 03/25/18 03/26/18 06:59 06:59 06:59 Intake Total 438 295 Output Total 270 Balance 438 25 Weight 65 kg General appearance: PRESENT: no acute distress Respiratory exam: PRESENT: unlabored Pulses: PRESENT: +1 pedal pulses bilateral Extremities exam: PRESENT: other - Right hip dressing clean dry and intact. Leg lengths are equal. Results Laboratory Results: 03/24/18 17:05 03/24/18 17:05 03/24/18 03/24/18 03/24/18 12:15 17:05 17:05 WBC 22.4 H RBC 4.16 Hgb 13.3 Hct 39.1 MCV 94 MCH 31.9 MCHC 33.9 RDW 13.5 Plt Count 213 Seg Neutrophils % Not Reportable Lymphocytes % Not Reportable Monocytes % Not Reportable Eosinophils % Not Reportable Basophils % Not Reportable Absolute Neutrophils Not Reportable Absolute Lymphocytes Not Reportable Absolute Monocytes Not Reportable Absolute Eosinophils Not Reportable Absolute Basophils Not Reportable Sodium 141.7 Potassium 3.3 L Chloride 107 Carbon Dioxide 27 Anion Gap 8 BUN 43 H Creatinine 1.41 H Est GFR ( Amer) 43 L Est GFR (Non-Af Amer) 35 L Glucose 239 H Calcium 8.2 L Magnesium 1.7 Urine Color YELLOW Urine Appearance CLOUDY Urine pH 5.0 Ur Specific [place] 1.012 Urine Protein 30 H Urine Glucose (UA) NEGATIVE Urine Ketones TRACE H Urine Blood MODERATE H Urine Nitrite NEGATIVE Ur Leukocyte Esterase LARGE H Urine WBC (Auto) 130 Urine RBC (Auto) 9 Impressions: Hip/Pelvis X-Ray 03/18/18 00:00 IMPRESSION: Acute right subcapital femoral neck fracture with varus angulation Femur X-Ray 03/18/18 11:09 IMPRESSION: Acute right subcapital femoral neck fracture with varus angulation. Remainder the femur two views is otherwise unremarkable Knee X-Ray 03/18/18 11:09 IMPRESSION: NEGATIVE STUDY OF THE RIGHT KNEE. NO RADIOGRAPHIC EVIDENCE OF ACUTE INJURY. Pelvis X-Ray 03/20/18 14:44 IMPRESSION: SATISFACTORY POSTOPERATIVE PELVIS. Head CT 03/21/18 14:09 IMPRESSION: No acute intracranial pathology. Small vessel white matter disease. EVIDENCE OF ACUTE STROKE: NO. Abdomen X-Ray 03/24/18 00:00 IMPRESSION: Probable constipation. No evidence of obstruction. Chest X-Ray 03/24/18 00:00 IMPRESSION: NO ACUTE RADIOGRAPHIC FINDING IN THE CHEST. Status: Imported from PACS Assessment & Plan - Diagnosis (1) Closed right hip fracture Qualifiers: Encounter type: initial encounter Qualified Code(s): S72.001A - Fracture of unspecified part of neck of right femur, initial encounter for closed fracture Is this a current diagnosis for this admission?: Yes Plan: half-way facility when medically appropriate (2) UTI (urinary tract infection) Is this a current diagnosis for this admission?: Yes Plan: Patient started on oral Cipro floxacillin - Time Time Spent with patient: 15-24 minutes Anticipated discharge: SNF Within: when bed available
[2018-03-25] MEDS: PRENATAL VITAMIN W DHA CAPSULE PO SCH (10:48)
[2018-03-25] MEDS: MULTIVITAMIN TABLET PO SCH (10:48)
[2018-03-25] MEDS: ASPIRIN 81 MG TABLET, ENT COATED PO SCH (10:49)
[2018-03-25] MEDS: ALPRAZOLAM 0.5 MG TABLET PO SCH ×2 (10:49→22:28)
[2018-03-25] MEDS: HEPARIN SOD (PORCINE) 5,000 UNIT/ML 1 ML SYRINGE SUBCUT SCH ×2 (10:49→22:24)
[2018-03-25] MEDS: VALSARTAN 160 MG TABLET PO SCH ×2 (10:49→22:28)
[2018-03-25] MEDS: SENNOSIDES/DOCUSATE 8.6-50 MG 1 EACH TABLET PO SCH ×2 (10:49→17:46)
[2018-03-25] MEDS: METOPROLOL TARTRATE 50 MG TABLET PO SCH ×2 (10:50→22:24)
[2018-03-25] MEDS: TIMOLOL MALEATE 0.5% OPH SOLN 5 ML OU SCH ×2 (10:50→22:23)
[2018-03-25] MEDS: CYANOCOBALAMIN (VITAMIN B-12) 1,000 MCG TABLET PO SCH (10:50)
[2018-03-25] MEDS: BUSPIRONE 5 MG PO SCH ×2 (10:50→22:25)
[2018-03-25] MEDS ORDERED: TAMSULOSIN HCL 0.4 MG CAP.SR.24H PO ONE (11:00)
[2018-03-25] MEDS ORDERED: POTASSIUM CHLORIDE 10 MEQ CAPSULE.ER PO ONE (11:00)
--- NOTE | 2018-03-25 12:28 | PDOC PROGRESS REPORT ---
Subjective Progress Note for:: 03/25/18 Subjective:: This is an 87 yr old female with a PMH of HTN, DM2, hyperlipidemia and COPD who was admited after a mechanical fall and was found to have sustained a right hip fracture. She underwent right proximal femoral hemiarthroplasty on 03/20. 03/21: Patient was reported to be more lethargic. She did get morphine overnight and long acting oxycodone as well. On encounter, she was easily arousable and was well oriented. She denies pain. Around 2 pm, paged by RN that patient was less responsive and was noted to have pinpoint pupils. Patient re evaluated on bedside. She was given 2 doses of Narcan with improvement in her mentation. ABG was also ordered and showed significant hypercarbia. She was placed on a BIPAP. Patient later became more responsive. No focal neurologic deficits. CT head negative. All opiates have been held. 03/22: No acute event overnight. She was taken off BIPAP around 3 am with no issues. She is fully alert and coherent and is back to her baseline mentation. She says she cannot recall what happened yesterday aside from being mostly asleep. Denies pain. 03/23: Patient was reportedly agitated and combative this morning. Upon bedside evaluation, she appears irritable and asked me "who are you?". She is able to recognize her son and is able to tell me her name and that it's 2018. She appears to be having acute delirium. No focal neurologic deficits. 03/24: Patient had mild agitation last night but this improved this morning. She did have constipation and required an enema last night. She had a BM after that. This morning, she appeared more calm and is better oriented. She is able to remember me now. 03/25/: No recurrence of agitation. She has not required Haldol. She was started on ciprofloxacin for UTI. She did have 5 BM yesterday after being given an enema. She also had acute urinary retention and required a straight cath overnight. Her creatinine slightly went up to 1.4 from 0.8 today. Reason For Visit: RIGHT FEMORAL NECK FRACTURE Physical Exam Vital Signs: Temp Pulse Resp BP Pulse Ox 98.6 F 99 20 120/67 96 03/25/18 08:00 03/25/18 08:00 03/25/18 08:00 03/25/18 08:00 03/25/18 08:00 Intake & Output 03/24/18 03/25/18 03/26/18 06:59 06:59 06:59 Intake Total 438 345 Output Total 970 Balance 438 -625 Weight 143 lb 4.807 oz 142 lb 10.225 oz General appearance: PRESENT: no acute distress, well-developed, well-nourished Head exam: PRESENT: atraumatic, normocephalic Eye exam: PRESENT: conjunctiva pink, EOMI, PERRLA. ABSENT: scleral icterus Ear exam: PRESENT: normal external ear exam Mouth exam: PRESENT: moist, tongue midline Neck exam: ABSENT: carotid bruit, JVD, lymphadenopathy, thyromegaly Respiratory exam: PRESENT: clear to auscultation twin. ABSENT: rales, rhonchi, wheezes Cardiovascular exam: PRESENT: RRR. ABSENT: diastolic murmur, rubs, systolic murmur Pulses: PRESENT: normal dorsalis pedis pul GI/Abdominal exam: PRESENT: normal bowel sounds, soft. ABSENT: distended, guarding, mass, organolmegaly, rebound, tenderness Rectal exam: PRESENT: deferred Neurological exam: PRESENT: alert, awake, oriented to person, oriented to place, oriented to time, oriented to situation Results Laboratory Results: 03/24/18 17:05 03/24/18 17:05 03/24/18 03/24/18 03/24/18 12:15 17:05 17:05 WBC 22.4 H RBC 4.16 Hgb 13.3 Hct 39.1 MCV 94 MCH 31.9 MCHC 33.9 RDW 13.5 Plt Count 213 Seg Neutrophils % Not Reportable Lymphocytes % Not Reportable Monocytes % Not Reportable Eosinophils % Not Reportable Basophils % Not Reportable Absolute Neutrophils Not Reportable Absolute Lymphocytes Not Reportable Absolute Monocytes Not Reportable Absolute Eosinophils Not Reportable Absolute Basophils Not Reportable Sodium 141.7 Potassium 3.3 L Chloride 107 Carbon Dioxide 27 Anion Gap 8 BUN 43 H Creatinine 1.41 H Est GFR ( Amer) 43 L Est GFR (Non-Af Amer) 35 L Glucose 239 H Calcium 8.2 L Magnesium 1.7 Urine Color YELLOW Urine Appearance CLOUDY Urine pH 5.0 Ur Specific [place] 1.012 Urine Protein 30 H Urine Glucose (UA) NEGATIVE Urine Ketones TRACE H Urine Blood MODERATE H Urine Nitrite NEGATIVE Ur Leukocyte Esterase LARGE H Urine WBC (Auto) 130 Urine RBC (Auto) 9 Impressions: Hip/Pelvis X-Ray 03/18/18 00:00 IMPRESSION: Acute right subcapital femoral neck fracture with varus angulation Femur X-Ray 03/18/18 11:09 IMPRESSION: Acute right subcapital femoral neck fracture with varus angulation. Remainder the femur two views is otherwise unremarkable Knee X-Ray 03/18/18 11:09 IMPRESSION: NEGATIVE STUDY OF THE RIGHT KNEE. NO RADIOGRAPHIC EVIDENCE OF ACUTE INJURY. Pelvis X-Ray 03/20/18 14:44 IMPRESSION: SATISFACTORY POSTOPERATIVE PELVIS. Head CT 03/21/18 14:09 IMPRESSION: No acute intracranial pathology. Small vessel white matter disease. EVIDENCE OF ACUTE STROKE: NO. Abdomen X-Ray 03/24/18 00:00 IMPRESSION: Probable constipation. No evidence of obstruction. Chest X-Ray 03/24/18 00:00 IMPRESSION: NO ACUTE RADIOGRAPHIC FINDING IN THE CHEST. Assessment & Plan - Diagnosis (1) Acute delirium Is this a current diagnosis for this admission?: Yes Plan: Improved. Multifactorial. Possible benzodiazepine withdrawal and UTI also contributory. She has been on Xanax bid for years. This was held due to her acute respiratory failure. Resumed lower dose of Xanax. Monitor respiratory status closely. She has not required any Haldol since yesterday. (2) Acute hypercapnic respiratory failure Is this a current diagnosis for this admission?: Yes Plan: Resolved. Likely secondary to hypoventilation from opiates. She had significant improvement with BIPAP and after 2 doses of Narcan. All opiates have been held. (3) Closed right hip fracture Qualifiers: Encounter type: initial encounter Qualified Code(s): S72.001A - Fracture of unspecified part of neck of right femur, initial encounter for closed fracture Is this a current diagnosis for this admission?: Yes Plan: S/P right proximal femoral hemiarthroplasty on 03/20. (4) Hypokalemia Is this a current diagnosis for this admission?: Yes Plan: Will replace with PO potassium. (5) Hypomagnesemia Is this a current diagnosis for this admission?: Yes Plan: Resolved. (6) UTI (urinary tract infection) Is this a current diagnosis for this admission?: Yes Plan: Continue Ciprofloxacin. (7) Acute kidney injury Is this a current diagnosis for this admission?: Yes Plan: Will give IV fluids today. (8) Acute urinary retention Is this a current diagnosis for this admission?: Yes Plan: Likely related to UTI. Straight cath as needed. - Time Time Spent with patient: 25-34 minutes
--- NOTE | 2018-03-25 12:52 | RADIOLOGY REPORT (SQ) ---
EXAM DESCRIPTION: U/S RETROPERITON (RENAL/AORTA) COMPLETED DATE/TIME: 03/25/2018 12:41 pm REASON FOR STUDY: acute renal failure,acute urinary retention COMPARISON: None. TECHNIQUE: Dynamic and static grayscale images acquired of the kidneys and bladder and recorded on P ACS. Additional selected color Doppler and spectral images recorded. LIMITATIONS: None. FINDINGS: RIGHT KIDNEY: Normal size. Normal echogenicity. No solid or suspicious masses. No hydronep hrosis. No calcifications. LEFT KIDNEY: Normal size. Normal echogenicity. No solid or suspicious masses. No hydronephrosis. No calcifications. BLADDER: Distended. Debris. OTHER FINDINGS: No other significant finding. IMPRESSION: No hydronephrosis. Distended bladder. TECHNICAL DOCUMENTATION: JOB ID: [id number] [employer]- All Rights Reserved Reading location - IP/workstation name: [email or web address]
[2018-03-25 16:18] LABS: ABSOLUTE BASOPHILS # (AUTO) 0.2 10^3/uL (0.0-0.2); ABSOLUTE EOSINOPHILS # (AUTO) 0.5 10^3/uL (0.0-0.6); ABSOLUTE LYMPHOCYTES (AUTO) 1.6 10^3/uL (0.5-4.7); ABSOLUTE MONOCYTES (AUTO) 1.9 10^3/uL (0.1-1.4); ABSOLUTE NEUT (AUTO) 14.2 10^3/uL (1.7-8.2); BASOPHILS % (AUTO) 0.9 % (0-2); EOSINOPHILS % (AUTO) 2.9 % (0-6); HEMATOCRIT 37.5 % (36.0-47.0); HEMOGLOBIN 12.5 g/dL (12.0-15.5); LYMPHOCYTES % (AUTO) 8.7 % (13-45); MEAN CORPUSCULAR HEMOGLOBIN 31.8 pg (27.0-33.4); MEAN CORPUSCULAR HGB CONC 33.4 g/dL (32.0-36.0); MEAN CORPUSCULAR VOLUME 95 fl (80-97); MONOCYTES % (AUTO) 10.1 % (3-13); PLATELET COUNT 237 10^3/uL (150-450); RED BLOOD COUNT 3.93 10^6/uL (3.72-5.28); SEGMENTED NEUTROPHILS % (AUTO) 77.4 % (42-78); TOTAL CELLS COUNTED % (AUTO) 100 %; WHITE BLOOD COUNT 18.4 10^3/uL (4.0-10.5)
[2018-03-25 16:38] LABS: ANION GAP 6 (5-19); BLOOD UREA NITROGEN 50 mg/dL (7-20); CALCIUM 8.4 mg/dL (8.4-10.2); CARBON DIOXIDE 30 mmol/L (22-30); CHLORIDE 107 mmol/L (98-107); GLUCOSE 157 mg/dL (75-110); SODIUM 143.4 mmol/L (137-145)
[2018-03-25 16:44] LABS: POTASSIUM 4.3 mmol/L (3.6-5.0)
[2018-03-25] MEDS: MELATONIN 3 MG TABLET PO SCH (22:24)
[2018-03-25] MEDS: ATORVASTATIN CALCIUM 40 MG TABLET PO SCH (22:27)
[2018-03-25] MEDS: LATANOPROST 0.005% OPH SOLN 2.5 ML OU SCH (22:27)
[2018-03-25] MEDS: NORMAL SALINE 1000 ML 1,000 ML IV PRN (22:47)
[2018-03-26 06:56] LABS: HEMATOCRIT 35.8 % (36.0-47.0); HEMOGLOBIN 11.9 g/dL (12.0-15.5); MEAN CORPUSCULAR HEMOGLOBIN 31.8 pg (27.0-33.4); MEAN CORPUSCULAR HGB CONC 33.1 g/dL (32.0-36.0); MEAN CORPUSCULAR VOLUME 96 fl (80-97); PLATELET COUNT 208 10^3/uL (150-450); RED BLOOD COUNT 3.74 10^6/uL (3.72-5.28); RED CELL DISTRIBUTION WIDTH 13.6 % (11.5-14.0)
--- NOTE | 2018-03-26 07:16 | PDOC PROGRESS REPORT ---
Subjective Progress Note for:: 03/26/18 Reason For Visit: RIGHT FEMORAL NECK FRACTURE 87-year-old white female now postop day 6 status post right proximal femoral hemiarthroplasty for femoral neck fracture. Interval events are notable for urinary tract infection being treated with p.o. Cipro, leukocytosis which is decreasing, and a Atkins placed by myself this morning for urinary retention. Physical Exam Vital Signs: Temp Pulse Resp BP Pulse Ox 37.0 C 88 28 H 151/67 H 94 03/26/18 03:25 03/26/18 03:25 03/26/18 03:25 03/26/18 03:25 03/26/18 03:25 Intake & Output 03/25/18 03/26/18 03/27/18 06:59 06:59 06:59 Intake Total 345 427 Output Total 970 300 Balance -625 127 Weight 64.7 kg General appearance: PRESENT: mild distress Pulses: PRESENT: +1 pedal pulses bilateral Vascular exam: PRESENT: normal capillary refill GI/Abdominal exam: PRESENT: soft Rectal exam: PRESENT: deferred Extremities exam: PRESENT: other - Leg lengths are equal. Psychiatric exam: PRESENT: agitated, other - Uncooperative Results Laboratory Results: 03/25/18 16:10 03/25/18 03/25/18 03/25/18 16:10 16:10 16:10 WBC 18.4 H RBC 3.93 Hgb 12.5 Hct 37.5 MCV 95 MCH 31.8 MCHC 33.4 RDW 14.0 Plt Count 237 Seg Neutrophils % 77.4 Lymphocytes % 8.7 L Monocytes % 10.1 Eosinophils % 2.9 Basophils % 0.9 Absolute Neutrophils 14.2 H Absolute Lymphocytes 1.6 Absolute Monocytes 1.9 H Absolute Eosinophils 0.5 Absolute Basophils 0.2 Sodium 143.4 Potassium 4.3 D Chloride 107 Carbon Dioxide 30 Anion Gap 6 BUN 50 H Creatinine 1.47 H Est GFR ( Amer) 41 L Est GFR (Non-Af Amer) 34 L Glucose 157 H Lactic Acid 2.1 Calcium 8.4 Magnesium 1.7 Impressions: Hip/Pelvis X-Ray 03/18/18 00:00 IMPRESSION: Acute right subcapital femoral neck fracture with varus angulation Femur X-Ray 03/18/18 11:09 IMPRESSION: Acute right subcapital femoral neck fracture with varus angulation. Remainder the femur two views is otherwise unremarkable Knee X-Ray 03/18/18 11:09 IMPRESSION: NEGATIVE STUDY OF THE RIGHT KNEE. NO RADIOGRAPHIC EVIDENCE OF ACUTE INJURY. Pelvis X-Ray 03/20/18 14:44 IMPRESSION: SATISFACTORY POSTOPERATIVE PELVIS. Head CT 03/21/18 14:09 IMPRESSION: No acute intracranial pathology. Small vessel white matter d isease. EVIDENCE OF ACUTE STROKE: NO. Abdomen X-Ray 03/24/18 00:00 IMPRESSION: Probable constipation. No evidence of obstruction. Chest X-Ray 03/24/18 00:00 IMPRESSION: NO ACUTE RADIOGRAPHIC FINDING IN THE CHEST. Renal Ultrasound 03/25/18 09:48 IMPRESSION: No hydronephrosis. Distended bladder. Status: Imported from PACS Assessment & Plan - Diagnosis (1) Closed right hip fracture Qualifiers: Encounter type: initial encounter Qualified Code(s): S72.001A - Fracture of unspecified part of neck of right femur, initial encounter for closed fracture Is this a current diagnosis for this admission?: Yes Plan: Mobilize with physical therapy as mental status allows (2) UTI (urinary tract infection) Is this a current diagnosis for this admission?: Yes Plan: Cultures pending. Empiric p.o. Cipro started. (3) Acute urinary retention Is this a current diagnosis for this admission?: Yes Plan: Atkins placed. - Time Time Spent with patient: 15-24 minutes Anticipated discharge: SNF Within: Other
[2018-03-26] MEDS: LANSOPRAZOLE 30 MG TAB.RAP.DR PO SCH (07:22)
[2018-03-26 07:26] LABS: ABSOLUTE LYMPHOCYTES# (MANUAL) 3.1 10^3/uL (0.5-4.7); ABSOLUTE MONOCYTES # (MANUAL) 1.3 10^3/uL (0.1-1.4); ABSOLUTE NEUTROPHILS# (MANUAL) 12.4 10^3/uL (1.7-8.2); BASOPHILS % (MANUAL) 1 % (0-2); EOSINOPHILS % (MANUAL) 6 % (0-6); LYMPHOCYTES % (MANUAL) 17 % (13-45); MONOCYTES % (MANUAL) 7 % (3-13); SEGMENTED NEUTROPHILS % (MAN) 69 % (42-78); TOTAL CELLS COUNTED 100
[2018-03-26 07:28] LABS: OVALOCYTES 1+; PLATELET CLUMPS PRESENT; PLATELET COMMENT ADEQUATE; POIKILOCYTOSIS 1+; POLYCHROMASIA SLIGHT
[2018-03-26] MEDS: NORMAL SALINE 1000 ML 1,000 ML IV PRN (08:03)
[2018-03-26] MEDS: CIPROFLOXACIN HCL 500 MG TABLET PO SCH ×2 (08:10→17:11)
[2018-03-26] MEDS ORDERED: LABETALOL HCL INJ 20 MG/4 ML DISP.SYRIN IV ONE ×2 (08:57→09:30)
[2018-03-26] MEDS: VALSARTAN 160 MG TABLET PO SCH (10:08)
[2018-03-26] MEDS: CYANOCOBALAMIN (VITAMIN B-12) 1,000 MCG TABLET PO SCH (10:09)
[2018-03-26] MEDS: SENNOSIDES/DOCUSATE 8.6-50 MG 1 EACH TABLET PO SCH ×2 (10:09→17:11)
[2018-03-26] MEDS: ASPIRIN 81 MG TABLET, ENT COATED PO SCH (10:09)
[2018-03-26] MEDS: MULTIVITAMIN TABLET PO SCH (10:09)
[2018-03-26] MEDS: METOPROLOL TARTRATE 50 MG TABLET PO SCH (10:09)
[2018-03-26] MEDS: BUSPIRONE 5 MG PO SCH (10:10)
[2018-03-26] MEDS: TIMOLOL MALEATE 0.5% OPH SOLN 5 ML OU SCH (10:10)
[2018-03-26] MEDS: PRENATAL VITAMIN W DHA CAPSULE PO SCH (10:10)
[2018-03-26] MEDS: HEPARIN SOD (PORCINE) 5,000 UNIT/ML 1 ML SYRINGE SUBCUT SCH (10:10)
[2018-03-26 11:44] LABS: ABSOLUTE BASOPHILS # (AUTO) 0.1 10^3/uL (0.0-0.2); ABSOLUTE EOSINOPHILS # (AUTO) 0.6 10^3/uL (0.0-0.6); ABSOLUTE LYMPHOCYTES (AUTO) 1.3 10^3/uL (0.5-4.7); ABSOLUTE MONOCYTES (AUTO) 1.2 10^3/uL (0.1-1.4); ABSOLUTE NEUT (AUTO) 12.7 10^3/uL (1.7-8.2); BASOPHILS % (AUTO) 0.5 % (0-2); EOSINOPHILS % (AUTO) 3.6 % (0-6); HEMATOCRIT 34.7 % (36.0-47.0); HEMOGLOBIN 11.6 g/dL (12.0-15.5); LYMPHOCYTES % (AUTO) 8.3 % (13-45); MEAN CORPUSCULAR HEMOGLOBIN 32.1 pg (27.0-33.4); MEAN CORPUSCULAR HGB CONC 33.4 g/dL (32.0-36.0); MEAN CORPUSCULAR VOLUME 96 fl (80-97); MONOCYTES % (AUTO) 7.4 % (3-13); PLATELET COUNT 237 10^3/uL (150-450); RED BLOOD COUNT 3.62 10^6/uL (3.72-5.28); RED CELL DISTRIBUTION WIDTH 13.9 % (11.5-14.0); SEGMENTED NEUTROPHILS % (AUTO) 80.2 % (42-78); TOTAL CELLS COUNTED % (AUTO) 100 %; WHITE BLOOD COUNT 15.8 10^3/uL (4.0-10.5)
[2018-03-26 12:06] LABS: ANION GAP 7 (5-19); BLOOD UREA NITROGEN 39 mg/dL (7-20); CALCIUM 7.9 mg/dL (8.4-10.2); CARBON DIOXIDE 27 mmol/L (22-30); CHLORIDE 111 mmol/L (98-107); GLUCOSE 173 mg/dL (75-110); POTASSIUM 3.5 mmol/L (3.6-5.0)
--- NOTE | 2018-03-26 15:12 | PDOC TRANSFER SUMMARY ---
General - Admit/Disc Date/PCP Admission Date/Primary Care Provider: 03/18/18 14:53 K V TEODORO COATES MD Discharge Date: 03/26/18 - Discharge Diagnosis (1) Acute delirium Is this a current diagnosis for this admission?: Yes (2) Acute hypercapnic respiratory failure Is this a current diagnosis for this admission?: Yes (3) Closed right hip fracture Is this a current diagnosis for this admission?: Yes (4) Hypokalemia Is this a current diagnosis for this admission?: Yes (5) Hypomagnesemia Is this a current diagnosis for this admission?: Yes (6) UTI (urinary tract infection) Is this a current diagnosis for this admission?: Yes (7) Acute kidney injury Is this a current diagnosis for this admission?: Yes (8) Acute urinary retention Is this a current diagnosis for this admission?: Yes - Additional Information Resuscitation Status: Full Code Prescriptions: Alprazolam [Xanax 0.5 mg Tablet] 0.5 mg PO Q12HP PRN #10 tablet PRN Reason: Aspirin [Ecotrin 81 mg EC Tablet] 81 mg PO DAILY #30 tabec Ciprofloxacin HCl [Cipro 250 mg Tablet] 1 tab PO BID 6 Days #12 tab Polyethylene Glycol 3350 [Miralax Powder 17 gm/Packet] 17 gm PO DAILYP PRN #1 powd.pack PRN Reason: Potassium Chloride 20 meq PO DAILY #5 tablet.er Sennosides/Docusate 8.6-50 mg [Senna Plus Tablet] 1 each PO BID PRN #20 tablet PRN Reason: Tamsulosin HCl [Flomax 0.4 mg Cap.sr] 0.4 mg PO DAILY #7 cap.sr.24h Home Medications: Buspirone HCl [Buspar 5 mg Tablet] 7.5 mg PO Q12 04/10/11 Ergocalciferol (Vitamin D2) [Vitamin D2] 50,000 unit PO .[id number] PRN 04/10/11 Prochlorperazine Maleate [Compazine 10 mg Tablet] 10 mg PO BIDP PRN 04/10/11 Valsartan [Diovan 160 mg Tablet] 160 mg PO Q12 04/10/11 Albuterol Sulfate [Proair HFA Inhalation Aerosol 8.5 gm MDI] 2 puff IH Q6HP PRN 03/18/18 Atorvastatin Calcium [Lipitor 40 mg Tablet] 40 mg PO QHS 03/18/18 Cyanocobalamin (Vitamin B-12) [Vitamin B-12 500 mcg Tablet] 500 mcg PO DAILY 03/18/18 Latanoprost [Xalatan 0.005% Oph Soln 2.5 ml] 1 drop OU QHS 03/18/18 Melatonin [Melatonin 3 mg Tablet] 3 mg PO QHS 03/18/18 Metoprolol Tartrate [Lopressor 50 mg Tablet] 50 mg PO Q12 03/18/18 Multivit-Min/Iron/Folic/Lutein [Centrum Silver Women Tablet] 1 each PO DAILY 03/18/18 Timolol Maleate [Timoptic 0.5% Oph Soln 5 ml] 1 drop OU Q12 03/18/18 Ubidecarenone/Vit E Acet [Co Q-10 100 mg Softgel] 1 each PO DAILY 03/18/18 Vit A/Vit C/Vit E/Zinc/Copper [Preservision Areds Tablet] 2 each PO DAILY 03/18/18 Acetaminophen [Tylenol 325 mg Tablet] 650 mg PO Q4HP PRN tablet 03/26/18 Alprazolam [Xanax 0.5 mg Tablet] 0.5 mg PO Q12HP PRN #10 tablet 03/26/18 Aspirin [Ecotrin 81 mg EC Tablet] 81 mg PO DAILY #30 tabec 03/26/18 Ciprofloxacin HCl [Cipro 250 mg Tablet] 1 tab PO BID 6 Days #12 tab 03/26/18 Polyethylene Glycol 3350 [Miralax Powder 17 gm/Packet] 17 gm PO DAILYP PRN #1 powd.pack 03/26/18 Potassium Chloride 20 meq PO DAILY #5 tablet.er 03/26/18 Sennosides/Docusate 8.6-50 mg [Senna Plus Tablet] 1 each PO BID PRN #20 tablet 03/26/18 Tamsulosin HCl [Flomax 0.4 mg Cap.sr] 0.4 mg PO DAILY #7 cap.sr.24h 03/26/18 History of Present Illness Admission Date/PCP: 03/18/18 14:53 Viviane COATES MD Patient complains of: fall History of Present Illness: Admitting hospitalist's H&P: ELBA VARGAS is a 87 year old female who was in her usual state of health and suffered a mechanical fall at home. She said there is an area in her house where there is a short step up into the next room and her foot caught and she went down on her right side. She was somehow able to get up and did not want to go to the hospital because she did not think anything was broken. She kept having a lot of pain and it got to where her to bed to walk and so she decided to come to the ER. Plain films confirmed a right subcapital femur fracture. Hospital Course Hospital Course: This is an 87 yr old female with a PMH of HTN, DM2, hyperlipidemia and COPD who was admited after a mechanical fall and was found to have sustained a right hip fracture. She was evaluated by ortho and underwent right proximal femoral hemiarthroplasty on 03/20. 03/21: Patient was reported to be more lethargic. She did get morphine overnight and long acting oxycodone as well. ABG showed hypercarbia. This resolved with 2 doses of Narcan. All opiates were held. CT of the head was negative. She likely had hypoventilation from opiates. Her Xanax was also held. Her pain however was well controlled with tylenol. 03/23: She developed acute delirium and required Haldol. This was deemed multifactorial from possible benzodiazepine withdrawal and UTI. Xanax was resumed at half her usual dose. Her agitation did resolve and she was back to her baseline and did not require any Haldol. She was started on ciprofloxacin for UTI. She developed urinary retention likely related to her UTI. Straight cath was done but patient later became irate about the straight caths. Flomax was also added. Ortho ordered a Atkins cath. Patient did not want straight catheterization. Discussed with son/DPOA as well that Atkins cath should be attempted to be removed in the next few days to avoid catheter-associated UTI. Also recommended outpatient urology ff-up if there is persistence of retention after removal of Atkins. She will be discharged on ciprofloxacin. Ortho recommended aspirin for post surgery VTE prophylaxis. Physical Exam Vital Signs: Temp Pulse Resp BP Pulse Ox 97.8 F 79 24 H 122/59 L 96 03/26/18 11:10 03/26/18 11:10 03/26/18 11:10 03/26/18 11:10 03/26/18 11:10 Intake & Output 03/25/18 03/26/18 03/27/18 06:59 06:59 06:59 Intake Total 345 1477 Output Total 973 7258 Balance -625 -878 Weight 142 lb 10.225 oz 137 lb 9.095 oz General appearance: PRESENT: no acute distress, well-developed, well-nourished Head exam: PRESENT: atraumatic, normocephalic Eye exam: PRESENT: conjunctiva pink, EOMI, PERRLA. ABSENT: scleral icterus Ear exam: PRESENT: normal external ear exam Mouth exam: PRESENT: moist, tongue midline Neck exam: ABSENT: carotid bruit, JVD, lymphadenopathy, thyromegaly Respiratory exam: PRESENT: clear to auscultation twin. ABSENT: rales, rhonchi, wheezes Cardiovascular exam: PRESENT: RRR. ABSENT: diastolic murmur, rubs, systolic m urmur Pulses: PRESENT: normal dorsalis pedis pul GI/Abdominal exam: PRESENT: normal bowel sounds, soft. ABSENT: distended, guarding, mass, organolmegaly, rebound, tenderness Rectal exam: PRESENT: deferred Neurological exam: PRESENT: alert, awake, oriented to person, oriented to place, oriented to time, oriented to situation, CN II-XII grossly intact. ABSENT: motor sensory deficit Results Laboratory Results: 03/26/18 11:16 03/26/18 11:16 03/25/18 03/25/18 03/25/18 16:10 16:10 16:10 WBC 18.4 H RBC 3.93 Hgb 12.5 Hct 37.5 MCV 95 MCH 31.8 MCHC 33.4 RDW 14.0 Plt Count 237 Seg Neutrophils % 77.4 Lymphocytes % 8.7 L Monocytes % 10.1 Eosinophils % 2.9 Basophils % 0.9 Absolute Neutrophils 14.2 H Absolute Lymphocytes 1.6 Absolute Monocytes 1.9 H Absolute Eosinophils 0.5 Absolute Basophils 0.2 Sodium 143.4 Potassium 4.3 D Chloride 107 Carbon Dioxide 30 Anion Gap 6 BUN 50 H Creatinine 1.47 H Est GFR ( Amer) 41 L Est GFR (Non-Af Amer) 34 L Glucose 157 H Lactic Acid 2.1 Calcium 8.4 Magnesium 1.7 03/26/18 03/26/18 03/26/18 06:05 11:16 11:16 WBC 18.0 H 15.8 H RBC 3.74 3.62 L Hgb 11.9 L 11.6 L Hct 35.8 L 34.7 L MCV 96 96 MCH 31.8 32.1 MCHC 33.1 33.4 RDW 13.6 13.9 Plt Count 208 237 Seg Neutrophils % Not Reportable 80.2 H Lymphocytes % Not Reportable 8.3 L Monocytes % Not Reportable 7.4 Eosinophils % Not Reportable 3.6 Basophils % Not Reportable 0.5 Absolute Neutrophils Not Reportable 12.7 H Absolute Lymphocytes Not Reportable 1.3 Absolute Monocytes Not Reportable 1.2 Absolute Eosinophils Not Reportable 0.6 Absolute Basophils Not Reportable 0.1 Sodium 145.0 Potassium 3.5 L Chloride 111 H Carbon Dioxide 27 Anion Gap 7 BUN 39 H Creatinine 1.17 Est GFR ( Amer) 53 L Est GFR (Non-Af Amer) 44 L Glucose 173 H Lactic Acid Calcium 7.9 L Magnesium Impressions: Hip/Pelvis X-Ray 03/18/18 00:00 IMPRESSION: Acute right subcapital femoral neck fracture with varus angulation Femur X-Ray 03/18/18 11:09 IMPRESSION: Acute right subcapital femoral neck fracture with varus angulation. Remainder the femur two views is otherwise unremarkable Knee X-Ray 03/18/18 11:09 IMPRESSION: NEGATIVE STUDY OF THE RIGHT KNEE. NO RADIOGRAPHIC EVIDENCE OF ACUTE INJURY. Pelvis X-Ray 03/20/18 14:44 IMPRESSION: SATISFACTORY POSTOPERATIVE PELVIS. Head CT 03/21/18 14:09 IMPRESSION: No acute intracranial pathology. Small vessel white matter disease. EVIDENCE OF ACUTE STROKE: NO. Abdomen X-Ray 03/24/18 00:00 IMPRESSION: Probable constipation. No evidence of obstruction. Chest X-Ray 03/24/18 00:00 IMPRESSION: NO ACUTE RADIOGRAPHIC FINDING IN THE CHEST. Renal Ultrasound 03/25/18 09:48 IMPRESSION: No hydronephrosis. Distended bladder. Qualifiers - * PATIENT BEING DISCHARGED WITH ANY OF THE FOLLOWING DIAGNOSIS: No
[2018-03-26 16:20] VITALS: BP 154/84
== END 2018-03-26 20:10 | DRG 469 ==
LOC: ER 11:00 → EH 12:45 → UNDOADMIN 12:45 → EH 14:53 → 4W 03-19 00:35
PROVIDERS: ADMIT Family Medicine; ATTEND Family Medicine
PROC: 0SRR0JZ Replacement of Right Hip Joint, Femoral Surface with Synthetic Substitute, Open Approach (ICD-10-PCS; principal; 2018-03-20 13:30)
DX: S72.011A Unspecified intracapsular fracture of right femur, initial encounter for closed fracture (principal); J96.02 Acute respiratory failure with hypercapnia; N39.0 Urinary tract infection, site not specified; F15.93 Other stimulant use, unspecified with withdrawal; N17.9 Acute kidney failure, unspecified; I10 Essential (primary) hypertension; E87.6 Hypokalemia; E83.42 Hypomagnesemia; R41.0 Disorientation, unspecified; E78.00 Pure hypercholesterolemia, unspecified; R33.9 Retention of urine, unspecified; J44.9 Chronic obstructive pulmonary disease, unspecified; E11.8 Type 2 diabetes mellitus with unspecified complications; I25.2 Old myocardial infarction; W18.39XA Other fall on same level, initial encounter; Y93.89 Activity, other specified; Y92.098 Other place in other non-institutional residence as the place of occurrence of the external cause; Z79.51 Long term (current) use of inhaled steroids; Z79.899 Other long term (current) drug therapy
CPT/HCPCS: 01210; 36415; 36600; 70450; 71045; 72170; 74019; 76770; 80048; 81001; 82306; 82803; 82962; 83605; 83735; 84132; 85025; 85027; 85610; 85730; 87040; 87086; 88304; 88311; 93005; 93010; 94660; 94799; 99285; C1776; J1630; J1644; J1741; J2250; J2270; J2310; J2405; J2704; J3010; J3370; J3480; J3490; J7030; J7050; J7060; J7120

== ENCOUNTER 2018-04-08 19:53 | Emergency (ER) | payer MEDICARE, OTHER ==
[2018-04-08 20:26] LABS: ABSOLUTE BASOPHILS # (AUTO) 0.2 10^3/uL (0.0-0.2); ABSOLUTE EOSINOPHILS # (AUTO) 0.5 10^3/uL (0.0-0.6); ABSOLUTE MONOCYTES (AUTO) 1.1 10^3/uL (0.1-1.4); ABSOLUTE NEUT (AUTO) 11.1 10^3/uL (1.7-8.2); BASOPHILS % (AUTO) 1.4 % (0-2); EOSINOPHILS % (AUTO) 3.3 % (0-6); HEMATOCRIT 36.2 % (36.0-47.0); HEMOGLOBIN 12.2 g/dL (12.0-15.5); LYMPHOCYTES % (AUTO) 13.4 % (13-45); MEAN CORPUSCULAR HEMOGLOBIN 32.3 pg (27.0-33.4); MEAN CORPUSCULAR HGB CONC 33.6 g/dL (32.0-36.0); MEAN CORPUSCULAR VOLUME 96 fl (80-97); MONOCYTES % (AUTO) 7.1 % (3-13); PLATELET COUNT 527 10^3/uL (150-450); RED BLOOD COUNT 3.77 10^6/uL (3.72-5.28); RED CELL DISTRIBUTION WIDTH 14.4 % (11.5-14.0); SEGMENTED NEUTROPHILS % (AUTO) 74.8 % (42-78); TOTAL CELLS COUNTED % (AUTO) 100 %; WHITE BLOOD COUNT 14.9 10^3/uL (4.0-10.5)
[2018-04-08 20:43] LABS: ANION GAP 9 (5-19); BLOOD UREA NITROGEN 29 mg/dL (7-20); CALCIUM 8.8 mg/dL (8.4-10.2); CARBON DIOXIDE 30 mmol/L (22-30); CHLORIDE 105 mmol/L (98-107); GLUCOSE 138 mg/dL (75-110); POTASSIUM 3.8 mmol/L (3.6-5.0); SODIUM 143.6 mmol/L (137-145)
--- NOTE | 2018-04-08 21:13 | ER Document Report ---
ED General - General Stated Complaint: CHEST PAIN Time Seen by Provider: 04/08/18 20:00 Primary Care Provider: DIANNE PAEZ MD [Primary Care Provider] - Follow up as needed Notes: Patient is an 87-year-old female with a past medical history of hypertension, dementia, had a right femoral neck surgical repair on 03/20/18 after a mechanical fall currently a resident of [facility] for rehabilitation. The patient presents with concern of pleuritic pain and shortness of breath that is been ongoing for the past 5-6 days. Apparently 1 of the physicians on site did run a d-dimer on the patient and found it to be markedly elevated. Patient was suddenly referred to the emergency department for further evaluation. No hist ory of similar symptoms in the past by patient's report. No history of DVT or pulmonary embolus. No history of estrogen supplementation. Does not take any form of anti-coagulation. She describes the pain in her chest as being a stabbing, intermittent pain triggered by breathing. She also notes that she has had a mild cough. Nothing seems to improve her symptoms. TRAVEL OUTSIDE OF THE [place] IN LAST 30 DAYS: No - Related Data Allergies/Adverse Reactions: Sulfa (Sulfonamide Antibiotics) Allergy (Mild, Verified 11/18/16 12:38) Nausea amlodipine [Amlodipine] Adverse Reaction (Mild, Verified 11/18/16 12:38) sick to stomach amoxicillin Adverse Reaction (Verified 11/18/16 12:38) Past Medical History - General Information source: Patient - Social History Smoking Status: Never Smoker Frequency of alcohol use: None Drug Abuse: None Lives with: [facility] Family History: Reviewed & Not Pertinent - Past Medical History Cardiac Medical History: Reports: Hx Heart Attack, Hx Hypercholesterolemia, Hx Hypertension Pulmonary Medical History: Reports: Hx Asthma, Hx COPD Endocrine Medical History: Reports: Hx Diabetes Mellitus Type 2 Renal/ Medical History: Denies: Hx Peritoneal Dialysis Past Surgical History: Reports: Hx Appendectomy, Hx Cholecystectomy, Hx Hysterectomy, Hx Tonsillectomy - Immunizations Hx Diphtheria, Pertussis, Tetanus Vaccination: - Unsure Hx Pneumococcal Vaccination: 02/21/14 Review of Systems - Review of Systems Notes: Constitutional: Negative for fever. HENT: Negative for sore throat. Eyes: Negative for visual changes. Cardiovascular: Positive for chest pain. Respiratory: Positive for shortness of breath. Gastrointestinal: Negative for abdominal pain, vomiting or diarrhea. Genitourinary: Negative for dysuria. Musculoskeletal: Negative for back pain. Skin: Negative for rash. Neurological: Negative for headaches, weakness or numbness. 10 point ROS negative except as marked above and in HPI. Physical Exam - Vital signs Vitals: Resp Pulse Ox 15 95 04/08/18 20:07 04/08/18 20:07 Interpretation: Normal Notes: PHYSICAL EXAMINATION: GENERAL: Frail, elderly female but in no acute distress HEAD: Atraumatic, normocephalic. EYES: Pupils equal round and reactive to light, extraocular movements intact, sclera anicteric, conjunctiva are normal. ENT: nares patent, oropharynx clear without exudates. Moderately dry mucous membranes. NECK: Normal range of motion, supple without lymphadenopathy LUNGS: Breath sounds clear to auscultation bilaterally and equal. No wheezes rales or rhonchi. HEART: Regular rate and rhythm without murmurs ABDOMEN: Soft, nontender, normoactive bowel sounds. No guarding, no rebound. No masses appreciated. EXTREMITIES: 1-2+ pitting edema in the right lower extremity not present in the left. NEUROLOGICAL: No focal neurological deficits. Moves all extremities spontaneously and on command. PSYCH: Normal mood, normal affect. SKIN: Warm, Dry, normal turgor, no rashes or lesions noted. Course - Re-evaluation Re-evalutation: 04/08/18 21:12 Presentation is certainly worrisome for an acute pulmonary embolus this patient does have edema to the right lower extremity not present on the left with pleuritic discomfort and a markedly elevated d-dimer which could also be related to postoperative state. However at this point with unilateral leg swelling, pleuritic pain and shortness of breath CTA of the chest will be obtained to definitively evaluate for pulmonary embolism. 04/08/18 23:02 CTA is negative for any evidence of acute pulmonary embolism. Patient does report that she has had a cough and a viral upper respiratory picture which likely does account for her chest discomfort with breathing and coughing. Given negative CTA, normal troponin I believe patient is stable and appropriate for return to the nursing facility. At this time will discharge with return precautions and follow-up recommendations. Verbal discharge instructions given a the bedside and opportunity for questions given. Medication warnings reviewed. Patient is in agreement with this plan and has verbalized understanding of return precautions and the need for primary care follow-up in the next 24-72 hours. - Vital Signs Vital signs: Temp Pulse Resp BP Pulse Ox 99.2 F 21 H 168/74 H 94 04/08/18 21:12 04/08/18 22:01 04/08/18 22:01 04/08/18 22:01 - Laboratory Result Diagrams: 04/08/18 20:11 04/08/18 20:11 Laboratory results interpreted by me: 04/08/18 04/08/18 20:11 20:11 WBC 14.9 H RDW 14.4 H Plt Count 527 H Absolute Neutrophils 11.1 H BUN 29 H Est GFR (Non-Af Amer) 50 L Glucose 138 H - Diagnostic Test Radiology reviewed: Reports reviewed Discharge - Discharge Clinical Impression: Chest discomfort, Pleuritic pain, Cough Condition: Good Disposition: HOME, SELF-CARE Additional Instructions: The CT scan of your chest does not show any evidence of blood clot in your lung. There is no evidence of pneumonia. Your labs do not suggest a heart attack. Your pain is likely related to the recent viral illness that you have been experiencing with associated coughing. Please return to the emergency department immediately if you develop worsening shortness of breath, being coughing blood, pass out, or develop any other symptoms that are worrisome to you. Referrals: DIANNE PAEZ MD [Primary Care Provider] - Follow up as needed
[2018-04-08] MEDS ORDERED: BUSPIRONE HCL 10 MG TABLET PO ONE (21:48)
[2018-04-08] MEDS ORDERED: METOPROLOL TARTRATE 50 MG TABLET PO ONE (21:48)
[2018-04-08] MEDS ORDERED: VALSARTAN 160 MG TABLET PO ONE (21:48)
--- NOTE | 2018-04-08 22:37 | RADIOLOGY REPORT (SQ) ---
CT CHEST ANGIOGRAPHY WITHOUT THEN WITH IV CONTRAST HISTORY: Shortness of breath. COMPARISON: None. TECHNIQUE: CT angiogram of the chest with IV contrast. 3-D MIP images were obtained in coronal and sagittal reconstructions. This exam was performed according to our departmental dose-optimization program, which includes automated exposure control, adjustment of the mA and/or kV according to patient size and/or use of iterative reconstruction technique. FINDINGS: No filling defects are seen in the pulmonary trunk or the left and right main pulmonary artery. There is limited evaluation of the segmental branches due to motion artifact as well as suboptimal bolus timing. No consolidation, pleural effusion, or pneumothorax is seen. There is no mediastinal or hilar adenopathy. No pericardial effusion. Scattered atelectasis/scarring in both lung ruano. The upper abdomen demonstrates no acute findings. There are no acute osseous findings. IMPRESSION: 1. No central pulmonary embolism. 2. No aortic dissection or aneurysm.
[2018-04-09] MEDS ORDERED: ACETAMINOPHEN 325 MG TABLET ONE (00:10)
[2018-04-09] MEDS ORDERED: ACETAMINOPHEN SOLN 325 MG/10.15 ML UDCUP ONE (00:13)
[2018-04-09] MEDS ORDERED: ACETAMINOPHEN SOLN 325 MG/10.15 ML UDCUP PO ONE (00:20)
[2018-04-09] MEDS ORDERED: LIDOCAINE 5% (700 MG) TRANSDERMAL ADH..PATCH TP ONE (00:20)
[2018-04-09 00:23] VITALS: BP 165/94
--- NOTE | 2018-04-09 13:09 | EKG REPORT ---
SEVERITY:- ABNORMAL ECG - SINUS RHYTHM INCOMPLETE LEFT BUNDLE BRANCH BLOCK LVH WITH SECONDARY REPOLARIZATION ABNORMALITY : Confirmed by: Yun Meyer MD 09-Apr-2018 13:08:37
== END 2018-04-09 00:22 | disposition home or self-care (01) ==
LOC: ER 19:53
DX: R07.9 Chest pain, unspecified (principal); R07.81 Pleurodynia; R05 Cough; I10 Essential (primary) hypertension; F03.90 Unspecified dementia, unspecified severity, without behavioral disturbance, psychotic disturbance, mood disturbance, and anxiety; E78.00 Pure hypercholesterolemia, unspecified; E11.9 Type 2 diabetes mellitus without complications; Z88.2 Allergy status to sulfonamides; Z88.0 Allergy status to penicillin; I25.2 Old myocardial infarction; Z90.49 Acquired absence of other specified parts of digestive tract; Z90.710 Acquired absence of both cervix and uterus
CPT/HCPCS: 93005; 99285; 36415; 85025; 80048; 84484; 71275; 93010; A9270 ×3; J3490

== ENCOUNTER → 2018-05-29 | Outpatient (CLI) | payer MEDICARE, OTHER ==
[2018-05-29 14:36] LABS: HEMOGLOBIN 13.5 g/dL (12.0-15.5); MEAN CORPUSCULAR HEMOGLOBIN 32.6 pg (27.0-33.4); MEAN CORPUSCULAR HGB CONC 33.9 g/dL (32.0-36.0); MEAN CORPUSCULAR VOLUME 96 fl (80-97); PLATELET COUNT 204 10^3/uL (150-450); RED BLOOD COUNT 4.15 10^6/uL (3.72-5.28); RED CELL DISTRIBUTION WIDTH 14.9 % (11.5-14.0); WHITE BLOOD COUNT 9.6 10^3/uL (4.0-10.5)
[2018-05-29 14:59] LABS: ANION GAP 7 (5-19); BLOOD UREA NITROGEN 19 mg/dL (7-20); CALCIUM 10.1 mg/dL (8.4-10.2); CARBON DIOXIDE 28 mmol/L (22-30); CHLORIDE 107 mmol/L (98-107); GLUCOSE 95 mg/dL (75-110); POTASSIUM 4.7 mmol/L (3.6-5.0); SODIUM 142.3 mmol/L (137-145)
== END ==
LOC: OD 13:58
PROVIDERS: ATTEND Internal Medicine Nephrology
DX: N18.3 Chronic kidney disease, stage 3 (moderate) (principal); I12.9 Hypertensive chronic kidney disease with stage 1 through stage 4 chronic kidney disease, or unspecified chronic kidney disease
CPT/HCPCS: 36415; 80048; 85027

== ENCOUNTER → 2018-10-02 | Outpatient (CLI) | payer MEDICARE, OTHER ==
[2018-10-02 11:43] LABS: HEMATOCRIT 44.5 % (36.0-47.0); HEMOGLOBIN 14.7 g/dL (12.0-15.5); MEAN CORPUSCULAR HEMOGLOBIN 31.3 pg (27.0-33.4); MEAN CORPUSCULAR VOLUME 95 fl (80-97); PLATELET COUNT 169 10^3/uL (150-450); RED CELL DISTRIBUTION WIDTH 14.7 % (11.5-14.0); WHITE BLOOD COUNT 11.3 10^3/uL (4.0-10.5)
[2018-10-02 12:01] LABS: ANION GAP 10 (5-19); BLOOD UREA NITROGEN 14 mg/dL (7-20); CALCIUM 9.6 mg/dL (8.4-10.2); CARBON DIOXIDE 30 mmol/L (22-30); CHLORIDE 102 mmol/L (98-107); GLUCOSE 96 mg/dL (75-110); POTASSIUM 4.5 mmol/L (3.6-5.0)
== END ==
LOC: OD 10:53
PROVIDERS: ATTEND Internal Medicine Nephrology
DX: N18.3 Chronic kidney disease, stage 3 (moderate) (principal); I12.9 Hypertensive chronic kidney disease with stage 1 through stage 4 chronic kidney disease, or unspecified chronic kidney disease
CPT/HCPCS: 36415; 80048; 83735; 85027

== ENCOUNTER → 2018-12-19 | Outpatient (CLI) | payer MEDICARE, OTHER ==
[2018-12-19 12:39] LABS: ADD MANUAL MICROSCOPIC YES; APPEARANCE,URINE SLIGHTLY-CLOUDY; BILIRUBIN,URINE NEGATIVE (NEGATIVE); COLOR,URINE YELLOW; GLUCOSE, URINE NEGATIVE (NEGATIVE); KETONES,URINE NEGATIVE (NEGATIVE); LEUKOCYTE ESTERASE,URINE LARGE (NEGATIVE); NITRITE,URINE NEGATIVE (NEGATIVE); PROTEIN,URINE 30 mg/dL (NEGATIVE); URINE SPECIFIC GRAVITY 1.021; UROBILINOGEN,URINE NEGATIVE mg/dL (<2.0)
[2018-12-19 12:59] LABS: BACTERIA,URINE 4+ /HPF; CALCIUM OXALATE CRYSTALS,UR FEW /HPF
== END ==
LOC: OD 10:48
PROVIDERS: ATTEND Internal Medicine
DX: N39.0 Urinary tract infection, site not specified (principal); R30.0 Dysuria
CPT/HCPCS: 81001; 87086; 87088

== ENCOUNTER → 2019-05-01 | Outpatient (CLI) | payer MEDICARE, OTHER ==
--- NOTE | 2019-05-01 13:04 | RADIOLOGY REPORT (SQ) ---
EXAM DESCRIPTION: T SPINE AP/LAT COMPLETED DATE/TIME: 05/01/2019 12:46 pm REASON FOR STUDY: PERSONAL HISTORY OF (HEALED) TRAUMATIC FRACTURE Z87.81 PERSONAL HISTORY OF (HEALE D) TRAUMATIC FRACTURE COMPARISON: None. NUMBER OF VIEWS: Two views. TECHNIQUE: AP and lateral radiographic images acquired of the thoracic spine. LIMITATIONS: None. FINDINGS: MINERALIZATION: Mild osteopenia. ALIGNMENT: Scoliosis thoracic spine, apex to the left. VERTEBRAE: No fracture or bone lesion. Maintained height, normal segmentation. DISCS: Mild disc space narrowing mid-lower lumbar spine. No large osteophytes. HARDWARE: None in the spine. MEDIASTINUM AND SOFT TISSUES: Normal heart size and aortic contour. No soft tissue abnormality. VISUALIZED LUNG GAN: Clear. OTHER: No other significant finding. IMPRESSION: 1. Levoconvex scoliosis and mild degenerative disc disease. 2. No acute osseous findings. TECHNICAL DOCUMENTATION: JOB ID: [id number] 2010 [employer]- All Rights Reserved Reading location - IP/workstation name: [email or web address]
== END ==
LOC: RAD 12:11
PROVIDERS: ATTEND Internal Medicine
DX: M51.34 Other intervertebral disc degeneration, thoracic region (principal); M41.84 Other forms of scoliosis, thoracic region; Z09 Encounter for follow-up examination after completed treatment for conditions other than malignant neoplasm; Z87.81 Personal history of (healed) traumatic fracture
CPT/HCPCS: 72070

== ENCOUNTER → 2019-06-28 | Outpatient (CLI) | payer MEDICARE, OTHER ==
[2019-06-28 10:53] LABS: ABSOLUTE BASOPHILS # (AUTO) 0.1 10^3/uL (0.0-0.2); ABSOLUTE EOSINOPHILS # (AUTO) 0.2 10^3/uL (0.0-0.6); ABSOLUTE LYMPHOCYTES (AUTO) 2.4 10^3/uL (0.5-4.7); ABSOLUTE MONOCYTES (AUTO) 0.7 10^3/uL (0.1-1.4); ABSOLUTE NEUT (AUTO) 6.2 10^3/uL (1.7-8.2); BASOPHILS % (AUTO) 1.2 % (0-2); EOSINOPHILS % (AUTO) 2.3 % (0-6); HEMATOCRIT 43.2 % (36.0-47.0); HEMOGLOBIN 14.8 g/dL (12.0-15.5); MEAN CORPUSCULAR HGB CONC 34.2 g/dL (32.0-36.0); MEAN CORPUSCULAR VOLUME 97 fl (80-97); MONOCYTES % (AUTO) 7.3 % (3-13); PLATELET COUNT 186 10^3/uL (150-450); RED BLOOD COUNT 4.47 10^6/uL (3.72-5.28); RED CELL DISTRIBUTION WIDTH 13.9 % (11.5-14.0); SEGMENTED NEUTROPHILS % (AUTO) 64.2 % (42-78); TOTAL CELLS COUNTED % (AUTO) 100 %; WHITE BLOOD COUNT 9.7 10^3/uL (4.0-10.5)
[2019-06-28 11:18] LABS: ALBUMIN 4.3 g/dL (3.5-5.0); ALKALINE PHOSPHATASE 70 U/L (38-126); ASPARTATE AMINO TRANSFERASE 42 U/L (14-36); BILIRUBIN,DIRECT 0.2 mg/dL (0.0-0.4); BILIRUBIN,TOTAL 0.7 mg/dL (0.2-1.3); BLOOD UREA NITROGEN 25 mg/dL (7-20); CALCIUM 9.3 mg/dL (8.4-10.2); CHOLESTEROL 147.54 mg/dL (0-200); GLUCOSE 98 mg/dL (75-110); POTASSIUM 5.2 mmol/L (3.6-5.0); TOTAL PROTEIN 7.1 g/dL (6.3-8.2); TRIGLYCERIDES 124 mg/dL (<150)
[2019-06-28 11:22] LABS: ANION GAP 5 (5-19); CARBON DIOXIDE 31 mmol/L (22-30); CHLORIDE 104 mmol/L (98-107)
[2019-06-28 11:31] LABS: DIRECT LDL 57 mg/dL (<100)
== END ==
LOC: OD 10:18
PROVIDERS: ATTEND Internal Medicine
DX: I10 Essential (primary) hypertension (principal); E78.5 Hyperlipidemia, unspecified; R53.83 Other fatigue; M19.90 Unspecified osteoarthritis, unspecified site
CPT/HCPCS: 36415; 80053; 80061; 83735; 84443; 85025

== ENCOUNTER → 2019-12-01 | Outpatient (CLI) | payer MEDICARE, OTHER ==
[2019-12-01 12:45] LABS: APPEARANCE,URINE SLIGHTLY-CLOUDY; BILIRUBIN,URINE NEGATIVE (NEGATIVE); COLOR,URINE YELLOW; GLUCOSE, URINE NEGATIVE (NEGATIVE); KETONES,URINE NEGATIVE (NEGATIVE); LEUKOCYTE ESTERASE,URINE MODERATE (NEGATIVE); NITRITE,URINE NEGATIVE (NEGATIVE); PROTEIN,URINE 30 mg/dL (NEGATIVE); UROBILINOGEN,URINE NEGATIVE mg/dL (<2.0)
== END ==
LOC: OD 11:08
PROVIDERS: ATTEND Internal Medicine Nephrology
DX: R35.0 Frequency of micturition (principal)
CPT/HCPCS: 81001; 87086

== ENCOUNTER 2019-12-11 11:52 | Day surgery (SDC) | payer MEDICARE, OTHER ==
[2019-12-06 11:39] LABS: ABSOLUTE BASOPHILS # (AUTO) 0.1 10^3/uL (0.0-0.2); ABSOLUTE EOSINOPHILS # (AUTO) 0.3 10^3/uL (0.0-0.6); ABSOLUTE LYMPHOCYTES (AUTO) 2.1 10^3/uL (0.5-4.7); ABSOLUTE MONOCYTES (AUTO) 0.8 10^3/uL (0.1-1.4); ABSOLUTE NEUT (AUTO) 5.7 10^3/uL (1.7-8.2); EOSINOPHILS % (AUTO) 2.8 % (0-6); HEMATOCRIT 42.4 % (36.0-47.0); HEMOGLOBIN 14.6 g/dL (12.0-15.5); LYMPHOCYTES % (AUTO) 23.2 % (13-45); MEAN CORPUSCULAR HEMOGLOBIN 33.5 pg (27.0-33.4); MEAN CORPUSCULAR HGB CONC 34.6 g/dL (32.0-36.0); MEAN CORPUSCULAR VOLUME 97 fl (80-97); PLATELET COUNT 105 10^3/uL (150-450); RED BLOOD COUNT 4.37 10^6/uL (3.72-5.28); RED CELL DISTRIBUTION WIDTH 13.5 % (11.5-14.0); TOTAL CELLS COUNTED % (AUTO) 100 %
[2019-12-06 11:44] LABS: INTERNATIONAL RATION (INR) 0.93; PROTHROMBIN TIME 12.7 SEC (11.4-15.4)
[2019-12-06 11:45] LABS: PARTIAL THROMBOPLASTIN TIME 30.9 SEC (23.5-35.8)
[2019-12-06 15:24] LABS: APPEARANCE,URINE CLEAR; BILIRUBIN,URINE NEGATIVE (NEGATIVE); COLOR,URINE YELLOW; GLUCOSE, URINE NEGATIVE (NEGATIVE); KETONES,URINE NEGATIVE (NEGATIVE); LEUKOCYTE ESTERASE,URINE TRACE (NEGATIVE); NITRITE,URINE NEGATIVE (NEGATIVE); PROTEIN,URINE NEGATIVE (NEGATIVE); URINE SPECIFIC GRAVITY 1.009; UROBILINOGEN,URINE NEGATIVE mg/dL (<2.0)
[~2019-12-11 11:52] MED LIST: CEFAZOLIN 1 GM/D5W RTU 1 GM/50 ML RTUPB IV ONE; CLINDAMYCIN 600 MG/D5W RTU 600 MG/50 ML RTUPB IV PRN; FENTANYL CITRATE INJ/PF 100 MCG/2 ML AMPUL ONE; LIDOCAINE 1% INJ-PF (10 MG/ML) 30 ML SDV ONE; MIDAZOLAM 2 MG/2 ML INJ ONE; ONDANSETRON HCL INJ/PF 4 MG/2 ML SDV ONE; PROPOFOL INJ 200 MG/20 ML VIAL IV ONE; TRIAMCINOLONE ACETONIDE INJ 40 MG/1 ML VIAL ONE
[2019-12-11] MEDS ORDERED: MEPERIDINE HCL/PF INJ 25 MG/1 ML DISP.SYRIN IV PRN (11:59)
[2019-12-11] MEDS ORDERED: DIPHENHYDRAMINE HCL 50 MG/ML VIAL IV PRN (11:59)
[2019-12-11] MEDS ORDERED: FENTANYL CITRATE INJ/PF 100 MCG/2 ML AMPUL IV PRN ×3 (11:59)
[2019-12-11] MEDS ORDERED: MORPHINE SULFATE 10 MG/ML INJ IV PRN (11:59)
[2019-12-11] MEDS ORDERED: PROMETHAZINE HCL INJ 25 MG/1 ML VIAL IV PRN ×2 (11:59)
[2019-12-11] MEDS ORDERED: ONDANSETRON HCL INJ/PF 4 MG/2 ML SDV IV PRN (11:59)
[2019-12-11 15:46] VITALS: BP 182/84
--- NOTE | 2019-12-11 21:30 | EKG REPORT ---
SEVERITY:- ABNORMAL ECG - SINUS RHYTHM PROBABLE LEFT ATRIAL ABNORMALITY INCOMPLETE LEFT BUNDLE BRANCH BLOCK LVH WITH SECONDARY REPOLARIZATION ABNORMALITY PROBABLE INFERIOR INFARCT, AGE INDETERMINATE ANTERIOR Q WAVES, POSSIBLY DUE TO LVH : Confirmed by: Beau Johnson MD 11-Dec-2019 21:30:18
== END 2019-12-11 15:45 | disposition home or self-care (01) ==
LOC: OROUT 11:52
PROVIDERS: ATTEND Pain Medicine Interventional Pain Medicine
DX: M48.062 Spinal stenosis, lumbar region with neurogenic claudication (principal); Z53.09 Procedure and treatment not carried out because of other contraindication; I10 Essential (primary) hypertension; I49.49 Other premature depolarization; I44.7 Left bundle-branch block, unspecified; R94.31 Abnormal electrocardiogram [ECG] [EKG]; Z00.6 Encounter for examination for normal comparison and control in clinical research program; Z03.818 Encounter for observation for suspected exposure to other biological agents ruled out; Z79.01 Long term (current) use of anticoagulants; Z79.899 Other long term (current) drug therapy
CPT/HCPCS: 0275T; 36415; 85025; 85610; 85730; 81001; 93005; 93010; 00630; C1889; Q9966; U0003; J2250; J0690; J3490; J3301; J2704; C9803; 630; 87635; J2405; J3010

== ENCOUNTER 2020-03-11 10:19 | Day surgery (SDC) | payer MEDICARE, OTHER ==
[2020-03-06 13:09] LABS: APPEARANCE,URINE CLEAR; BILIRUBIN,URINE NEGATIVE (NEGATIVE); COLOR,URINE YELLOW; GLUCOSE, URINE NEGATIVE (NEGATIVE); KETONES,URINE NEGATIVE (NEGATIVE); LEUKOCYTE ESTERASE,URINE TRACE (NEGATIVE); NITRITE,URINE NEGATIVE (NEGATIVE); PROTEIN,URINE NEGATIVE (NEGATIVE); URINE SPECIFIC GRAVITY 1.009; UROBILINOGEN,URINE NEGATIVE mg/dL (<2.0)
[2020-03-06 13:12] LABS: ABSOLUTE BASOPHILS # (AUTO) 0.1 10^3/uL (0.0-0.2); ABSOLUTE EOSINOPHILS # (AUTO) 0.2 10^3/uL (0.0-0.6); ABSOLUTE LYMPHOCYTES (AUTO) 2.2 10^3/uL (0.5-4.7); ABSOLUTE MONOCYTES (AUTO) 0.5 10^3/uL (0.1-1.4); ABSOLUTE NEUT (AUTO) 4.9 10^3/uL (1.7-8.2); BASOPHILS % (AUTO) 1.5 % (0-2); EOSINOPHILS % (AUTO) 2.5 % (0-6); HEMATOCRIT 43.3 % (36.0-47.0); HEMOGLOBIN 14.7 g/dL (12.0-15.5); LYMPHOCYTES % (AUTO) 28.1 % (13-45); MEAN CORPUSCULAR HEMOGLOBIN 32.6 pg (27.0-33.4); MEAN CORPUSCULAR VOLUME 96 fl (80-97); MONOCYTES % (AUTO) 6.5 % (3-13); PLATELET COUNT 106 10^3/uL (150-450); RED BLOOD COUNT 4.52 10^6/uL (3.72-5.28); RED CELL DISTRIBUTION WIDTH 13.9 % (11.5-14.0); SEGMENTED NEUTROPHILS % (AUTO) 61.4 % (42-78); TOTAL CELLS COUNTED % (AUTO) 100 %; WHITE BLOOD COUNT 7.9 10^3/uL (4.0-10.5)
[2020-03-06 13:13] LABS: INTERNATIONAL RATION (INR) 0.94; PROTHROMBIN TIME 12.8 SEC (11.4-15.4)
[2020-03-06 13:14] LABS: PARTIAL THROMBOPLASTIN TIME 32.1 SEC (23.5-35.8)
--- NOTE | 2020-03-06 20:03 | EKG REPORT ---
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
[~2020-03-11 10:19] MED LIST changes: -CEFAZOLIN 1 GM/D5W RTU 1 GM/50 ML RTUPB IV ONE; +CLINDAMYCIN 600 MG/D5W RTU 600 MG/50 ML RTUPB IV ONE; +LACTATED RINGERS 1000 ML IV PRN; -LIDOCAINE 1% INJ-PF (10 MG/ML) 30 ML SDV ONE; -ONDANSETRON HCL INJ/PF 4 MG/2 ML SDV ONE; -TRIAMCINOLONE ACETONIDE INJ 40 MG/1 ML VIAL ONE
[2020-03-11] MEDS ORDERED: TRIAMCINOLONE ACETONIDE INJ 40 MG/1 ML VIAL ONE (11:34)
[2020-03-11] MEDS ORDERED: EPHEDRINE SULFATE INJ 50 MG/1 ML AMPULE ONE (11:40)
[2020-03-11] MEDS ORDERED: LIDOCAINE 1% INJ-PF (10 MG/ML) 30 ML SDV ONE (11:58)
[2020-03-11] MEDS ORDERED: BUPIVACAINE HCL 0.25% /EPINEPHRINE INJ/PF 30 ML SDV ONE (11:59)
--- NOTE | 2020-03-11 12:21 | Operative Report ---
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 Risk and benefits including aggravation of pain neurological injury paralysis bleeding and infection and no resolution of pain from the procedure logic reaction and were also included after obtaining informed consent patient was taken to the operating room placed comfortably in the prone position. Comfort was assessed visually and verbally. Monitors were applied MAC anesthesia was administered. She was then prepped with chlorhexidine with appropriate drying time. Then draped. Fluoroscopy was used to identify the appropriate level for 5 was readily identified. Tubal views were taken to assure proper location. Landmarks were marked on the skin using a midline approach at the L4-5 level an epidural needle was placed using [id number] to saline technique. Space was entered and epidurography was performed with Omnipaque 180. Outlined the epidural space in his posterior regions. At predetermined site small incisions were made at the right and left over the S1 region. Getting on the left the subcutaneous was tissue was anesthetized with 1% lidocaine down to the L4-5 interspace the kyphoplasty excuse me the mild trocar was then advanced under fluoroscopic guidance into the para midline location at the L4-5 level. Bone rongeur bone and ligament were removed from the epidural space at that level. Wound improvement of spread was noted the procedure was moved to the other side. Should be noted that the needle was damaged from the bone rongeur the needle the epidural needle was removed and replaced with a new needle without difficulty. Was then placed on the right side the procedure was performed in same fashion. When suitable material was removed and improvement of spread was identified procedure was terminated almost all materials were removed from the patient. Incision sites were cleaned with Depakote with saline when dried Steri-Strips and Dermabond cement were applied. Dry dressings were placed over this. Tolerated this well and was taken to the PACU for further postoperative care. End of dictation see that I have a copy of this note thank you
[2020-03-11] MEDS ORDERED: MORPHINE SULFATE 10 MG/ML INJ IV PRN (12:47)
[2020-03-11] MEDS ORDERED: DIPHENHYDRAMINE HCL 50 MG/ML VIAL IV PRN (12:47)
[2020-03-11] MEDS ORDERED: FENTANYL CITRATE INJ/PF 100 MCG/2 ML AMPUL IV PRN ×3 (12:47)
[2020-03-11] MEDS ORDERED: MEPERIDINE HCL/PF INJ 25 MG/1 ML DISP.SYRIN IV PRN (12:47)
[2020-03-11] MEDS ORDERED: ONDANSETRON HCL INJ/PF 4 MG/2 ML SDV IV PRN (12:47)
--- NOTE | 2020-03-11 15:17 | RADIOLOGY REPORT (SQ) ---
EXAM DESCRIPTION: L SPINE 2 VIEWS; NO CHG FLUORO IMAGES COMPLETED DATE/TIME: 03/11/2020 2:32 pm REASON FOR STUDY: MINIMALLY INVASIVE LUMBAR DECOMPRESSION ASSISTED WITH FLUORO IN OR Z00.6 ENCNTR F OR EXAM FOR NRML CMPRSN AND CTRL IN CL[facility]CL [facility] M48.062 SPINAL STENOSIS, LUMBAR REGION WITH NEUROGENI C ANIYAH Z79.899 OTHER LITERACY CONSULTANT (CURRENT) DRUG THERAPY COMPARISON: None. FLUOROSCOPY TIME: 4.3 minutes Spot images saved to PACS. TECHNIQUE: Intra-operative images acquired during surgical procedure to evaluate progress. NUMBER OF IMAGES: 14 LIMITATIONS: None. FINDINGS: Fluoroscopy was provided for intraoperative procedure. Please refer to the operative repo rt for further discussion. IMPRESSION: IMAGE(S) OBTAINED DURING PROCEDURE. COMMENT: Quality ID 145: Final reports for procedures using fluoroscopy that document radiation exp osure indices, or exposure time and number of fluorographic images (if radiation exposure indices are not available) Please consult full operative report of the attending physician for description of the procedure. TECHNICAL DOCUMENTATION: JOB ID: [id number] 2010 [employer]- All Rights Reserved Reading location - IP/workstation name: [email or web address]
--- NOTE | 2020-03-11 15:17 | RADIOLOGY REPORT (SQ) ---
EXAM DESCRIPTION: L SPINE 2 VIEWS; NO CHG FLUORO IMAGES COMPLETED DATE/TIME: 03/11/2020 2:32 pm REASON FOR STUDY: MINIMALLY INVASIVE LUMBAR DECOMPRESSION ASSISTED WITH FLUORO IN OR Z00.6 ENCNTR F OR EXAM FOR NRML CMPRSN AND CTRL IN CLNCL [facility] M48.062 SPINAL STENOSIS, LUMBAR REGION WITH NEUROGENI C ANIYAH Z79.899 OTHER [employer] (CURRENT) DRUG THERAPY COMPARISON: None. FLUOROSCOPY TIME: 4.3 minutes Spot images saved to PACS. TECHNIQUE: Intra-operative images acquired during surgical procedure to evaluate progress. NUMBER OF IMAGES: 14 LIMITATIONS: None. FINDINGS: Fluoroscopy was provided for intraoperative procedure. Please refer to the operative repo rt for further discussion. IMPRESSION: IMAGE(S) OBTAINED DURING PROCEDURE. COMMENT: Quality ID [id number]: Final reports for procedures using fluoroscopy that document radiation exp osure indices, or exposure time and number of fluorographic images (if radiation exposure indices are not available) Please consult full operative report of the attending physician for description of the procedure. TECHNICAL DOCUMENTATION: JOB ID: [id number] 2010 [employer]- All Rights Reserved Reading location - IP/workstation name: [email or web address]
[2020-03-11 17:02] VITALS: BP 156/79
== END 2020-03-11 13:55 | disposition home or self-care (01) ==
LOC: OROUT 10:19
PROVIDERS: ATTEND Pain Medicine Interventional Pain Medicine
DX: M48.062 Spinal stenosis, lumbar region with neurogenic claudication (principal); Z79.899 Other long term (current) drug therapy; Z79.01 Long term (current) use of anticoagulants; Z00.6 Encounter for examination for normal comparison and control in clinical research program; Z01.812 Encounter for preprocedural laboratory examination; Z20.822 Contact with and (suspected) exposure to COVID-19; I10 Essential (primary) hypertension; F03.90 Unspecified dementia, unspecified severity, without behavioral disturbance, psychotic disturbance, mood disturbance, and anxiety; Z79.1 Long term (current) use of non-steroidal anti-inflammatories (NSAID); M19.90 Unspecified osteoarthritis, unspecified site; Z87.891 Personal history of nicotine dependence
CPT/HCPCS: 93005; 36415; 85025; 85610; 85730; 81001; 72100; 93010; 0275T; C1889; Q9966; U0003; J3490 ×3; J3010; J3301; J2704; C9803; 630; 87635; J2250